=== PATIENT | male | born 1950 | race Caucasian/White ===

== ENCOUNTER 2017-01-06 14:22 | Observation (INO) | payer OTHER, MEDICARE ==
[2017-01-06] MEDS ORDERED: NITROGLYCERIN SL 0.4 MG TABLET SL STA ×3 (15:20→18:42)
[2017-01-06] MEDS ORDERED: NITROGLYCERIN SL 0.4 MG TABLET SL ONE (15:34)
[2017-01-06] MEDS ORDERED: SODIUM CHLORIDE 0.9% 1,000 ML IV ONE (16:16)
[2017-01-06] MEDS ORDERED: SODIUM CHLORIDE FLUSH 0.9% 10 ML SYRINGE IVP PRN (19:21)
[2017-01-06] MEDS ORDERED: NITROGLYCERIN SL 0.4 MG TABLET SL PRN (19:24)
[2017-01-06] MEDS ORDERED: SODIUM CHLORIDE 0.9% 1,000 ML IV SCH (20:00)
[2017-01-06] MEDS: SODIUM CHLORIDE FLUSH 0.9% 10 ML SYRINGE IVP SCH (20:37)
[2017-01-06] MEDS ORDERED: MORPHINE 2 MG/ML SYRINGE IVP PRN (20:54)
[2017-01-06] MEDS ORDERED: ATORVASTATIN 40 MG TABLET PO SCH (21:00)
[2017-01-06] MEDS ORDERED: LISINOPRIL 20 MG TABLET PO SCH (21:00)
[2017-01-06] MEDS: INSULIN GLARGINE 300 UNIT/3 ML PEN SUBQ SCH (21:04)
[2017-01-06] MEDS: INSULIN ASPART 300 UNIT/3 ML PEN SUBQ SCH (21:05)
[2017-01-06] MEDS: CARVEDILOL 12.5 MG TABLET PO SCH (21:24)
[2017-01-06] MEDS ORDERED: ZOLPIDEM 5 MG TABLET PO PRN (23:04)
[2017-01-06] MEDS: MORPHINE 2 MG/ML SYRINGE IVP PRN (23:36)
[2017-01-07] MEDS: SODIUM CHLORIDE FLUSH 0.9% 10 ML SYRINGE IVP SCH (06:09)
[2017-01-07] MEDS: MORPHINE 2 MG/ML SYRINGE IVP PRN (06:45)
[2017-01-07] MEDS ORDERED: PANTOPRAZOLE 40 MG TABLET PO SCH (07:00)
[2017-01-07] MEDS ORDERED: INSULIN ASPART 300 UNIT/3 ML PEN SUBQ SCH (08:00)
[2017-01-07] MEDS: INSULIN ASPART 300 UNIT/3 ML PEN SUBQ SCH (08:12)
[2017-01-07] MEDS: INSULIN GLARGINE 300 UNIT/3 ML PEN SUBQ SCH (08:26)
[2017-01-07] MEDS: CARVEDILOL 12.5 MG TABLET PO SCH (08:31)
[2017-01-07] MEDS ORDERED: predniSONE 10 MG TABLET PO SCH (09:00)
[2017-01-07] MEDS ORDERED: ASPIRIN EC 81 MG TABLET PO SCH (09:00)
[2017-01-07] MEDS ORDERED: amLODIPine 5 MG TABLET PO SCH (09:00)
[2017-01-07] MEDS ORDERED: CETIRIZINE 10 MG TABLET PO SCH (09:00)
[2017-01-07] MEDS ORDERED: FLUoxetine 10 MG CAPSULE PO SCH (09:00)
[2017-01-07] MEDS ORDERED: NITROGLYCERIN 0.1 MG/HR PATCH TOP SCH (09:00)
[2017-01-07] MEDS ORDERED: POLYETHYLENE GLYCOL 3350 17 GM PACKET PO SCH (09:00)
== END 2017-01-07 11:30 | disposition home or self-care (01) ==
DX: R07.89 Other chest pain (principal); E86.0 Dehydration; E11.65 Type 2 diabetes mellitus with hyperglycemia; K21.9 Gastro-esophageal reflux disease without esophagitis; I25.118 Atherosclerotic heart disease of native coronary artery with other forms of angina pectoris; D59.1 Other autoimmune hemolytic anemias; T38.0X5A Adverse effect of glucocorticoids and synthetic analogues, initial encounter; T38.3X6A Underdosing of insulin and oral hypoglycemic [antidiabetic] drugs, initial encounter; I10 Essential (primary) hypertension; E78.5 Hyperlipidemia, unspecified; E66.9 Obesity, unspecified; I25.2 Old myocardial infarction; Z91.138 Patient's unintentional underdosing of medication regimen for other reason; Z95.5 Presence of coronary angioplasty implant and graft; Z79.52 Long term (current) use of systemic steroids; Z79.82 Long term (current) use of aspirin; Z79.4 Long term (current) use of insulin; Z87.891 Personal history of nicotine dependence; Z68.42 Body mass index [BMI] 45.0-49.9, adult; Z87.19 Personal history of other diseases of the digestive system
CPT/HCPCS: 36415; 71010; 80048; 80053; 83036; 83690; 84484; 85025; 93005; 93010; 96361; 96374; 96376; 99284; A9270; G0378

== ENCOUNTER 2017-02-26 15:47 | Emergency (ER) | payer OTHER, MEDICARE | END 2017-02-26 18:10 | disposition home or self-care (01) | DX: R07.9 Chest pain, unspecified (principal); I25.119 Atherosclerotic heart disease of native coronary artery with unspecified angina pectoris; I10 Essential (primary) hypertension; E78.00 Pure hypercholesterolemia, unspecified; E11.9 Type 2 diabetes mellitus without complications; Z79.4 Long term (current) use of insulin; K21.9 Gastro-esophageal reflux disease without esophagitis; Z87.11 Personal history of peptic ulcer disease; Z86.2 Personal history of diseases of the blood and blood-forming organs and certain disorders involving the immune mechanism ==

== ENCOUNTER 2017-04-03 07:18 | Day surgery (SDC) | payer OTHER, MEDICARE ==
[2017-04-03] MEDS ORDERED: LACTATED RINGERS 1,000 ML IV ONE (07:22)
[2017-04-03] MEDS ORDERED: MIDAZOLAM 2 MG/2 ML VIAL IVP ONE (08:33)
[2017-04-03] MEDS ORDERED: fentaNYL 100 MCG/2 ML VIAL IVP ONE (08:33)
[2017-04-03] MEDS ORDERED: LIDO GARGLE 30 ML BOTTLE PO ONE (08:40)
[2017-04-03] MEDS ORDERED: BENZOCAINE/TETRACAINE/BUTAMBEN SPRAY 56 GM TOP ONE (08:40)
[2017-04-03 09:26] VITALS: BP 110/60
== END 2017-04-03 07:19 | disposition home or self-care (01) ==
LOC: SDS 07:18
PROVIDERS: ATTEND Surgery
PROC: 0DB68ZX Excision of Stomach, Via Natural or Artificial Opening Endoscopic, Diagnostic (ICD-10-PCS; principal; 2017-04-03 08:15)
DX: K27.4 Chronic or unspecified peptic ulcer, site unspecified, with hemorrhage (principal); K21.9 Gastro-esophageal reflux disease without esophagitis; K29.70 Gastritis, unspecified, without bleeding; Z87.891 Personal history of nicotine dependence; Z98.890 Other specified postprocedural states
CPT/HCPCS: 43239; 87081; A9270; J7120

== ENCOUNTER 2017-04-05 08:47 | Outpatient (CLI) | payer OTHER, MEDICARE ==
[2017-04-05 13:17] LABS: ALBUMIN/GLOBULIN RATIO 1.5 (1.0-2.2); BILIRUBIN,TOTAL 0.6 mg/dL (0.2-1.0); CALCIUM 9.1 mg/dL (8.5-10.3); POTASSIUM 4.2 mmol/L (3.5-5.0); TOTAL PROTEIN 6.6 g/dL (6.7-8.2)
[2017-04-05 13:28] LABS: HEMOGLOBIN A1C 0.78 g/dL
== END 2017-04-05 08:48 | disposition home or self-care (01) ==
LOC: LAB.WCP 08:47
PROVIDERS: ATTEND Family Medicine
DX: I10 Essential (primary) hypertension (principal); E11.9 Type 2 diabetes mellitus without complications; F41.9 Anxiety disorder, unspecified
CPT/HCPCS: 36415; 80053; 83036

== ENCOUNTER 2017-07-01 07:53 | Outpatient (CLI) | payer OTHER, MEDICARE ==
[2017-07-01 14:23] LABS: HEMOGLOBIN A1C 0.54 g/dL
== END 2017-07-01 07:54 | disposition home or self-care (01) ==
LOC: LAB.WCP 07:53
PROVIDERS: ATTEND Family Medicine
DX: E11.9 Type 2 diabetes mellitus without complications (principal)
CPT/HCPCS: 36415; 82043; 83036

== ENCOUNTER 2017-11-04 07:48 | Outpatient (CLI) | payer OTHER, MEDICARE ==
[2017-11-04 12:43] LABS: CALCIUM 8.8 mg/dL (8.5-10.3)
[2017-11-04 13:06] LABS: HB2 TOTAL 15.7 g/dL; HEMOGLOBIN A1C 0.59 g/dL; HEMOGLOBIN A1C % 5.6 % (4.6-6.2)
== END 2017-11-04 07:49 | disposition home or self-care (01) ==
LOC: LAB.WCP 07:48
PROVIDERS: ATTEND Family Medicine
DX: E11.9 Type 2 diabetes mellitus without complications (principal); M48.061 Spinal stenosis, lumbar region without neurogenic claudication; K27.9 Peptic ulcer, site unspecified, unspecified as acute or chronic, without hemorrhage or perforation; I25.10 Atherosclerotic heart disease of native coronary artery without angina pectoris
CPT/HCPCS: 36415; 80048; 83036

== ENCOUNTER 2017-12-31 12:39 | Emergency (ER) | payer OTHER, MEDICARE ==
[2017-12-31 13:23] LABS: BASOPHILS # (AUTO) 0.1 10^3/uL (0.0-0.1); BASOPHILS % (AUTO) 0.8 %; EOSINOPHILS # (AUTO) 0.4 10^3/uL (0.0-0.7); EOSINOPHILS % (AUTO) 5.4 %; HGB - HEMOGLOBIN 14.6 g/dL (14.0-18.0); LYMPHOCYTES # (AUTO) 0.8 10^3/uL (1.5-3.5); LYMPHOCYTES % (AUTO) 11.1 %; MEAN CORPUSCULAR HEMOGLOBIN 34.3 pg (27.0-31.0); MEAN CORPUSCULAR HGB CONC 35.1 g/dL (32.0-36.0); MEAN CORPUSCULAR VOLUME 97.8 fL (80.0-94.0); MONOCYTES # (AUTO) 0.9 10^3/uL (0.0-1.0); MONOCYTES % (AUTO) 12.4 %; NEUTROPHILS # (AUTO) 5.3 10^3/uL (1.5-6.6); NEUTROPHILS % (AUTO) 70.3 %; PLT - PLATELET COUNT 141 10^3/uL (130-450); RED BLOOD COUNT 4.25 10^6/uL (4.70-6.10); RED CELL DISTRIBUTION WIDTH 12.2 % (12.0-15.0); WHITE BLOOD COUNT 7.5 x10^3/uL (4.8-10.8)
--- NOTE | 2017-12-31 13:23 | XRAY Report ---
EXAM: CHEST RADIOGRAPHY EXAM DATE: 12/31/2017 01:05 PM. CLINICAL HISTORY: Chest pain. COMPARISON: None. TECHNIQUE: 2 views. FINDINGS: Lungs/Pleura: No focal opacities evident. No pleural effusion. No pneumothorax. Normal volumes. Mediastinum: Heart and mediastinal contours are unremarkable. Other: Mild degenerative change in the spine. Surgical clips right upper quadrant. Surgical anchors r ight humeral head. IMPRESSION: No acute findings 2-view chest radiography. [facility] Referring Provider Line: [phone] SITE ID: [id number]
[2017-12-31 13:33] LABS: ALBUMIN 4.5 g/dL (3.2-5.5); ALBUMIN/GLOBULIN RATIO 1.9 (1.0-2.2); BILIRUBIN,TOTAL 0.6 mg/dL (0.2-1.0); CALCIUM 8.9 mg/dL (8.5-10.3); TOTAL PROTEIN 6.9 g/dL (6.7-8.2)
[2017-12-31] MEDS ORDERED: ASPIRIN CHEW 81 MG TABLET PO STA (13:58)
[2017-12-31] MEDS ORDERED: NITROGLYCERIN SL 0.4 MG TABLET SL STA ×2 (13:58→15:00)
--- NOTE | 2017-12-31 14:01 | ED Physician Documentation ---
PD HPI CHEST PAIN - Stated complaint Stated Complaint: CP - Chief complaint Chief Complaint: General - History obtained from History obtained from: Patient, Family (spouse) - History of Present Illness Timing - onset: How many days ago (3) Timing - onset during: Rest Timing - duration: Days (3) Timing - details: Still present, Constant Pain level now: 5 Quality: Sharp Location: Left shoulder/arm Improved by: Other medication (Improved with Vicodin.) Worsened by: Movement Associated symptoms: No: Shortness of air, Diaphoresis, Nausea, Vomiting Similar symptoms before: Diagnosis (History of similar symptoms with angina.) - Additional information Additional information: The patient is a 67-year-old male with history of coronary artery disease, status post UT in 2013, and status post coronary stents, who presents with pain in the left scapular region, radiating to the anterior chest. His symptoms started 3 days ago after relatively light physical activity, and the pain has been constant since that time. He describes it as feeling "like a knife." It is worse with movement, and improves with Vicodin. He denies any associated shortness of breath, diaphoresis, nausea or vomiting. He denies fever or cough. He reports history of similar symptoms about 2 or 3 months ago, but it resolved within one day that time. He also reports history of similar symptoms with angina. He did not take nitroglycerin because his bottle of nitroglycerin is out dated. In addition to coronary artery disease, he has a history of autoimmune hemolytic anemia. Surgical history is significant for Matt fundoplication. Review of Systems Constitutional: denies: Fever Ears: denies: Tinnitus/ringing Nose: denies: Congestion Throat: denies: Sore throat Cardiac: reports: Chest pain / pressure. denies: Palpitations Respiratory: denies: Dyspnea, Cough GI: denies: Abdominal Pain, Nausea, Vomiting : denies: Dysuria Skin: denies: Rash Musculoskeletal: reports: Extremity pain (Left scapular region.). denies: Extremity swelling Neurologic: denies: Focal weakness, Numbness, Headache PD PAST MEDICAL HISTORY - Past Medical History Cardiovascular: Hypertension, High cholesterol, Coronary artery disease, Angina , [place], Arrhythmia Respiratory: None Endocrine/Autoimmune: Type 2 diabetes GI: GERD, GI bleed, Ulcers : None HEENT: None Psych: Depression Musculoskeletal: Chronic back pain Derm: None - Past Surgical History Past Surgical History: Yes General: Cholecystectomy Cardiovascular: Coronary stent, Cardiac catheterization, Angioplasty - Present Medications Home Medications: Ambulatory Orders Medication Instructions Recorded Confirmed Carvedilol 37.5 mg ORAL BID 06/01/13 11/04/17 Cyclobenzaprine [Flexeril] 10 mg PO DAILY PRN 02/09/15 11/04/17 Atorvastatin [Lipitor] 40 mg PO DAILY 11/24/15 11/04/17 Nitroglycerin [Nitrostat] 0.4 mg PO DAILY PRN 11/24/15 11/04/17 Isosorbide Mononitrate [Isosorbide 60 mg PO BID 01/26/16 11/04/17 Mononitrate ER] Calcium Carbonate 1,500 mg PO DAILY PRN 02/13/16 11/04/17 Pantoprazole [Protonix] 40 mg PO BIDAC 02/13/16 11/04/17 Aspirin [Adult Low Dose Aspirin EC] 81 mg PO DAILY 02/15/16 11/04/17 Insulin Glargine,Hum.rec.anlog 35 units SQ BID 03/05/16 11/04/17 [Lantus] Ferrous Sulfate [Feosol] 65 mg PO DAILY 06/11/16 11/04/17 Insulin Lispro [Humalog] 10 unit SUBQ TID 06/11/16 11/04/17 Cetirizine [ZyrTEC] 10 mg PO DAILY 06/17/16 11/04/17 FLUoxetine [PROzac] 40 mg PO DAILY 06/17/16 11/04/17 Lisinopril [Zestril] 40 mg PO BID 08/13/16 11/04/17 amLODIPine [Norvasc] 10 mg PO DAILY 11/19/16 11/04/17 Colestipol HCl [Colestipol HCl] 1 gm PO BID 08/05/17 11/04/17 Nitroglycerin [Nitrostat] 0.4 mg SL Q5MIN PRN #1 bottle 12/31/17 - Allergies Allergies/Adverse Reactions: Allergies Allergy/AdvReac Type Severity Reaction Status Date / Time azithromycin Allergy Unknown Verified 12/31/17 14:08 - Living Situation Living Situation: reports: With spouse/s.o. - Social History Does the pt smoke?: No Smoking Status: Former smoker Does the pt drink ETOH?: No Does the pt have substance abuse?: No - Immunizations Immunizations are current?: Yes - POLST Patient has POLST: No PD ED PE NORMAL - Vitals Vital signs reviewed: Yes (Normal) - General General: Alert and oriented X 3, Well developed/nourished - HEENT HEENT: Atraumatic, Moist mucous membranes, Pharynx benign - Neck Neck: Supple, no meningeal sign, No adenopathy, No JVD - Cardiac Cardiac: RRR, No murmur - Respiratory Respiratory: No respiratory distress, Clear bilaterally - Abdomen Abdomen: Soft, Non tender - Back Back: No CVA TTP - Derm Derm: No rash - Extremities Extremities: No tenderness to palpate, No edema, No calf tenderness / cord - Neuro Neuro: Alert and oriented X 3, No motor deficit, No sensory deficit Results - Vitals Vitals: Oxygen O2 Source [] Room air O2 Source Room air - EKG (time done) 12:46 Rate: Rate (enter#) (78) Rhythm: NSR [place]: Normal Intervals: Normal [place] Ischemia: Normal ST segments Other comments: Other comments (Early R-wave transition.) Compare to prior EKG: Unchanged from prior EKG Computer interpretation: Agree with computer - Labs Labs: Laboratory Tests 12/31/17 12/31/17 12/31/17 13:11 13:11 13:11 WBC 7.5 RBC 4.25 L Hgb 14.6 Hct 41.6 L MCV 97.8 H MCH 34.3 H MCHC 35.1 RDW 12.2 Plt Count 141 MPV 8.0 Neut # 5.3 Lymph # 0.8 L [place] # 0.9 Eos # 0.4 Baso # 0.1 Absolute Nucleated RBC 0.00 Nucleated RBC % 0.0 Sodium 135 Potassium 4.8 Chloride 106 Carbon Dioxide 21 Anion Gap 8.0 BUN 14 Creatinine 1.0 Estimated GFR (MDRD) 75 L Glucose 144 H Calcium 8.9 Total Bilirubin 0.6 AST 21 ALT 21 Alkaline Phosphatase 98 Troponin I < 0.04 Total Protein 6.9 Albumin 4.5 Globulin 2.4 Albumin/Globulin Ratio 1.9 Lipase 23 - Rads (name of study) CXR Radiology: Prelim report reviewed, EMP read contemporaneously, See rad report ( No acute findings, normal 2 view chest radiography.) PD MEDICAL DECISION MAKING - ED course Complexity details: reviewed old records, reviewed results, re-evaluated patient , considered differential, d/w patient, d/w family ED course: The patient's presentation is significant for chest pain that may well be caused by cardiac angina. There is no change in his electrocardiogram compared to previous EKG, and his troponin level is normal. Given that his symptoms have been ongoing for 3 days I would expect elevated troponin if there had been cardiac injury. He had not taken nitroglycerin at home because his bottle of nitroglycerin was outdated. Consideration was given to the possibility of musculoskeletal etiology for his pain, but I was not convinced that his left shoulder movement or palpation reproduced his symptoms. In the emergency department sublingual nitroglycerin was administered 2, with resolution of his discomfort. A GI cocktail was also administered, but his pain had resolved prior to the administration of the oral medication. Chest x- ray reveals no acute radiographic abnormality, and I doubt pulmonary embolus. CBC and chemistry panel are normal except for mildly elevated blood sugar of 144. I do not think the patient has unstable angina, and do not think hospitalization is necessarily indicated. I discussed this with the patient and his and the patient is quite adamant he does not want to be hospitalized. He is being discharged with a prescription for Nitrostat. I discussed with him and his the importance of outpatient follow-up, as well as potentially worrisome signs or symptoms that should prompt reevaluation in the emergency department. Departure - Departure Disposition: 01 Home, Self Care Clinical Impression: Chest pain Qualifiers: Chest pain type: unspecified Qualified Code(s): R07.9 - Chest pain, unspecified CAD (coronary artery disease) Qualifiers: Associated angina: with stable angina Condition: Stable Instructions: ED Chest Pain Angina Stable Follow-Up: Marc Juarez MD [Provider Admit Priv/Credential] - Prescriptions: Nitroglycerin [Nitrostat] 0.4 mg SL Q5MIN PRN #1 bottle PRN Reason: Chest Pain Comments: Continue your previously prescribed cardiac medication. Use sublingual nitroglycerin as prescribed if needed for recurrent anginal chest pain. 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 Call to schedule follow-up appointment. Return to the emergency department if you develop increasing chest pain or shortness of breath, or otherwise worsening symptoms. Discharge Date/Time: 12/31/17 16:33
[2017-12-31] MEDS ORDERED: MAG HYDROX/AL HYDROX/SIMETH 30 ML UDC PO STA (15:10)
[2017-12-31] MEDS ORDERED: PHENobarb/HYOSCY/ATROPINE/SCOP 5 ML UDC PO STA (15:10)
[2017-12-31] MEDS ORDERED: LIDOCAINE VISCOUS 2% 15 ML UDC MM STA (15:10)
[2017-12-31 16:25] VITALS: BP 128/76
== END 2017-12-31 16:33 | disposition home or self-care (01) ==
LOC: ED 12:39
DX: R07.9 Chest pain, unspecified (principal); I25.118 Atherosclerotic heart disease of native coronary artery with other forms of angina pectoris; I25.2 Old myocardial infarction; I10 Essential (primary) hypertension; E78.00 Pure hypercholesterolemia, unspecified; E11.9 Type 2 diabetes mellitus without complications; Z79.4 Long term (current) use of insulin; Z87.891 Personal history of nicotine dependence; Z95.5 Presence of coronary angioplasty implant and graft
CPT/HCPCS: 36415; 71046; 80053; 83690; 84484; 85025; 93005; 99284; A9270

== ENCOUNTER 2018-02-03 11:50 | Outpatient (CLI) | payer OTHER, MEDICARE ==
[2018-02-03] MEDS ORDERED: IOPAMIDOL-300 100 ML VIAL ONE (12:09)
[2018-02-03] MEDS ORDERED: IOPAMIDOL-300 50 ML VIAL ONE (12:09)
[2018-02-03] MEDS ORDERED: IOPAMIDOL-300 50 ML VIAL PO ONE (13:10)
[2018-02-03] MEDS ORDERED: IOPAMIDOL-300 100 ML VIAL IVP ONE (13:10)
--- NOTE | 2018-02-03 13:29 | CT Report ---
CT ABDOMEN AND PELVIS WITH CONTRAST: 02/03/2018 CLINICAL INDICATION: Right-sided abdominal pain. TECHNIQUE: Axial CT images of the abdomen and pelvis were obtained with 100 mL Isovue 300 intravenously as well as oral contrast. COMPARISON: 10/09/2016. FINDINGS: Limited evaluation of the lung bases is unremarkable. ABDOMEN: The liver, pancreas and adrenal glands are unremarkable. Incidental small cysts are noted in the spleen and kidneys. No hydronephrosis or nephrolithiasis is seen. No bowel dilatation, free gas or free fluid is present. The patient is status post cholecystectomy. No abdominal adenopathy is present. PELVIS: The appendix is seen in the right lower quadrant, and is normal in caliber. Scattered sigmoid diverticula are present, without CT evidence of diverticulitis. The previously noted wall thickening of the ascending colon and cecum have resolved. No pelvic adenopathy or free fluid is present. Osseous structures demonstrate degenerative changes. IMPRESSION: RESOLUTION OF PREVIOUSLY SEEN COLITIS. NO EVIDENT ETIOLOGY FOR PATIENT'S RIGHT-SIDED PAIN. POSTOPERATIVE CHANGES OF CHOLECYSTECTOMY. NORMAL APPENDIX. CT DOSE REDUCTION STATEMENT In accordance with CT protocol optimization, one or more of the following dose reduction techniques were utilized for this exam: automated exposure control, adjustment of mA and/or KV based on patient size, or use of iterative reconstructive technique. TD: 02/03/2018 13:28
== END 2018-02-03 11:51 | disposition home or self-care (01) ==
LOC: DI 11:50
PROVIDERS: ATTEND Family Medicine
DX: R10.9 Unspecified abdominal pain (principal); Z90.49 Acquired absence of other specified parts of digestive tract
CPT/HCPCS: 74177

== ENCOUNTER 2018-02-10 08:07 | Outpatient (CLI) | payer OTHER, MEDICARE ==
[2018-02-10 13:20] LABS: ALBUMIN 4.4 g/dL (3.2-5.5); BILIRUBIN,TOTAL 0.4 mg/dL (0.2-1.0); CALCIUM 8.6 mg/dL (8.5-10.3); TOTAL PROTEIN 6.6 g/dL (6.7-8.2)
[2018-02-10 13:21] LABS: HB2 TOTAL 16.8 g/dL; HEMOGLOBIN A1C 0.64 g/dL; HEMOGLOBIN A1C % 5.6 % (4.6-6.2)
== END 2018-02-10 08:08 | disposition home or self-care (01) ==
LOC: LAB.WCP 08:07
PROVIDERS: ATTEND Family Medicine
DX: K52.9 Noninfective gastroenteritis and colitis, unspecified (principal); D59.9 Acquired hemolytic anemia, unspecified; I25.10 Atherosclerotic heart disease of native coronary artery without angina pectoris; E11.9 Type 2 diabetes mellitus without complications; Z79.891 Long term (current) use of opiate analgesic
CPT/HCPCS: 36415; 80053; 83036

== ENCOUNTER 2018-02-19 14:34 | Outpatient (CLI) | payer OTHER, MEDICARE ==
[2018-02-19 19:34] LABS: BASOPHILS # (AUTO) 0.1 10^3/uL (0.0-0.1); EOSINOPHILS # (AUTO) 0.5 10^3/uL (0.0-0.7); EOSINOPHILS % (AUTO) 6.6 %; HGB - HEMOGLOBIN 14.2 g/dL (14.0-18.0); LYMPHOCYTES # (AUTO) 0.9 10^3/uL (1.5-3.5); LYMPHOCYTES % (AUTO) 12.1 %; MEAN CORPUSCULAR HEMOGLOBIN 33.2 pg (27.0-31.0); MEAN CORPUSCULAR HGB CONC 33.1 g/dL (32.0-36.0); MEAN CORPUSCULAR VOLUME 100.3 fL (80.0-94.0); MEAN PLATELET VOLUME 8.8 fL (7.4-11.4); MONOCYTES % (AUTO) 13.4 %; NEUTROPHILS # (AUTO) 4.8 10^3/uL (1.5-6.6); NEUTROPHILS % (AUTO) 66.9 %; PLT - PLATELET COUNT 164 10^3/uL (130-450); RED BLOOD COUNT 4.29 10^6/uL (4.70-6.10); RED CELL DISTRIBUTION WIDTH 12.7 % (12.0-15.0); WHITE BLOOD COUNT 7.2 x10^3/uL (4.8-10.8)
[2018-02-19 19:58] LABS: ALBUMIN 4.4 g/dL (3.2-5.5); BILIRUBIN,TOTAL 0.3 mg/dL (0.2-1.0); CALCIUM 8.8 mg/dL (8.5-10.3); TOTAL PROTEIN 6.6 g/dL (6.7-8.2)
== END 2018-02-19 14:35 | disposition home or self-care (01) ==
LOC: LAB.WCP 14:34
PROVIDERS: ATTEND Family Medicine
DX: K52.9 Noninfective gastroenteritis and colitis, unspecified (principal)
CPT/HCPCS: 36415; 80053; 85025

== ENCOUNTER 2018-08-02 17:10 | Emergency (ER) | payer MEDICARE, OTHER ==
[2018-08-02 17:31] LABS: BASOPHILS # (AUTO) 0.1 10^3/uL (0.0-0.1); BASOPHILS % (AUTO) 0.9 %; EOSINOPHILS # (AUTO) 0.5 10^3/uL (0.0-0.7); EOSINOPHILS % (AUTO) 6.3 %; HGB - HEMOGLOBIN 15.6 g/dL (14.0-18.0); LYMPHOCYTES # (AUTO) 0.8 10^3/uL (1.5-3.5); MEAN CORPUSCULAR HEMOGLOBIN 34.6 pg (27.0-31.0); MEAN CORPUSCULAR HGB CONC 34.8 g/dL (32.0-36.0); MEAN CORPUSCULAR VOLUME 99.6 fL (80.0-94.0); MEAN PLATELET VOLUME 7.8 fL (7.4-11.4); MONOCYTES # (AUTO) 0.9 10^3/uL (0.0-1.0); MONOCYTES % (AUTO) 12.4 %; NEUTROPHILS # (AUTO) 5.1 10^3/uL (1.5-6.6); NEUTROPHILS % (AUTO) 69.4 %; PLT - PLATELET COUNT 164 10^3/uL (130-450); RED CELL DISTRIBUTION WIDTH 12.2 % (12.0-15.0); WHITE BLOOD COUNT 7.4 x10^3/uL (4.8-10.8)
--- NOTE | 2018-08-02 17:37 | ED Physician Documentation ---
PD HPI CHEST PAIN - Stated complaint Stated Complaint: CP - Chief complaint Chief Complaint: Cardiac - History obtained from History obtained from: Patient - History of Present Illness Timing - onset: Yesterday Timing - onset during: Rest Timing - duration: Minutes Timing - details: Still present (The chest pain is been more consistent the last couple of hours.), Intermittant (has had left chest pain intermittently since yesterday, with consistent and worse pain this afternoon. Not exertional. Not pleuritic.) Quality: Tightness, Aching, Pain Location: Left chest Radiation: Jaw, Neck, Back Associated symptoms: Shortness of air, Nausea. No: Diaphoresis, Feeling faint / dizzy Similar symptoms before: Diagnosis (he does have CAD with prior stents, last one in 2013. Saw Pest Control Worker Helper a week ago and was scheduled for nuclear stress and ECHO for early Aug. Had had some occasional CPs at the time of seeing Pest Control Worker Helper. CP worse now. Not exertional.) Recently seen: Clinic Review of Systems Constitutional: denies: Fever, Chills, Myalgias Nose: denies: Rhinorrhea / runny nose, Congestion Throat: denies: Sore throat Cardiac: reports: Chest pain / pressure. denies: Palpitations, Pedal edema, Calf pain Respiratory: reports: Dyspnea. denies: Cough, Wheezing GI: reports: Abdominal Pain (mid to lower abd for several weeks). denies: Nausea, Vomiting, Diarrhea Skin: denies: Rash, Lesions Musculoskeletal: denies: Extremity swelling PD PAST MEDICAL HISTORY - Past Medical History Cardiovascular: Hypertension, High cholesterol, Coronary artery disease, Angina, [place], Arrhythmia Respiratory: None, Pneumonia Endocrine/Autoimmune: Type 2 diabetes GI: GERD, GI bleed, Ulcers : None HEENT: None Psych: Depression Musculoskeletal: Chronic back pain Derm: None Other Past Medical History: IBS - Past Surgical History Past Surgical History: Yes General: Cholecystectomy Cardiovascular: Coronary stent, Cardiac catheterization, Angioplasty - Present Medications Home Medications: Ambulatory Orders Medication Instructions Recorded Confirmed Carvedilol 37.5 mg ORAL BID 06/01/13 07/07/18 Atorvastatin [Lipitor] 40 mg PO DAILY 11/24/15 07/07/18 Nitroglycerin [Nitrostat] 0.4 mg PO DAILY PRN 11/24/15 07/07/18 Isosorbide Mononitrate [Isosorbide 60 mg PO BID 01/26/16 07/07/18 Mononitrate ER] Pantoprazole [Protonix] 40 mg PO BIDAC 02/13/16 07/07/18 Aspirin [Adult Low Dose Aspirin EC] 81 mg PO DAILY 02/15/16 07/07/18 Insulin Glargine,Hum.rec.anlog 35 units SQ BID 03/05/16 07/07/18 [Lantus] Ferrous Sulfate [Feosol] 65 mg PO DAILY 06/11/16 07/07/18 Insulin Lispro [Humalog] 10 unit SUBQ TID 06/11/16 07/07/18 Cetirizine [ZyrTEC] 10 mg PO DAILY 06/17/16 07/07/18 FLUoxetine [PROzac] 40 mg PO DAILY 06/17/16 07/07/18 Lisinopril [Zestril] 40 mg PO BID 08/13/16 07/07/18 amLODIPine [Norvasc] 10 mg PO DAILY 11/19/16 07/07/18 Colestipol HCl 1 gm PO BID 08/05/17 07/07/18 Nortriptyline [Pamelor] 2 tab ORAL DAILY 07/07/18 07/07/18 Hydrocodone/Acetaminophen 08/02/18 [Hydrocodone-Acetamin 5-325 mg] - Allergies Allergies/Adverse Reactions: Allergies Allergy/AdvReac Type Severity Reaction Status Date / Time azithromycin AdvReac Unknown Verified 08/02/18 17:18 - Social History Does the pt smoke?: No Smoking Status: Never smoker Does the pt drink ETOH?: No Does the pt have substance abuse?: No - Immunizations Immunizations are current?: Yes - POLST Patient has POLST: No PD ED PE NORMAL - Vitals Vital signs reviewed: Yes - General General: Alert and oriented X 3, Well developed/nourished - HEENT HEENT: Moist mucous membranes, Pharynx benign - Neck Neck: Supple, no meningeal sign, No adenopathy - Cardiac Cardiac: RRR, No murmur - Respiratory Respiratory: Clear bilaterally, Other (no chestwall tenderness) - Abdomen Abdomen: Soft, Non tender - Male Male : Deferred - Rectal Rectal: Deferred - Back Back: No CVA TTP - Derm Derm: Normal color, Warm and dry - Extremities Extremities: No deformity, No tenderness to palpate, Normal ROM s pain, No magalis a, No calf tenderness / cord - Neuro Neuro: Alert and oriented X 3, No motor deficit, Normal speech - Psych Psych: Normal mood, Normal affect Results - Vitals Vitals: Vital Signs - 24 hr 08/02/18 08/02/18 08/02/18 17:15 17:58 18:42 Temperature 36 C L Heart Rate 73 73 75 Respiratory 22 21 20 Rate Blood Pressure 169/84 H 143/75 H 145/73 H O2 Saturation 100 99 99 08/02/18 19:33 Temperature 36.6 C Heart Rate 80 Respiratory 18 Rate Blood Pressure 137/76 H O2 Saturation 100 Oxygen O2 Source [] Room air O2 Source Room air - EKG (time done) 17:14 Rate: Rate (enter#) (71) Rhythm: NSR [place]: Normal Intervals: Normal [place] QRS: Normal Ischemia: Normal ST segments. No: ST elevation c/w ischemia, ST depression - Labs Labs: Laboratory Tests 08/02/18 08/02/18 08/02/18 17:23 17:23 17:23 WBC 7.4 RBC 4.50 L Hgb 15.6 Hct 44.8 MCV 99.6 H MCH 34.6 H MCHC 34.8 RDW 12.2 Plt Count 164 MPV 7.8 Neut # (Auto) 5.1 Lymph # (Auto) 0.8 L [place] # (Auto) 0.9 Eos # (Auto) 0.5 Baso # (Auto) 0.1 Absolute Nucleated RBC 0.00 Nucleated RBC % 0.0 Sodium 133 L Potassium 4.2 Chloride 98 L Carbon Dioxide 25 Anion Gap 10.0 BUN 12 Creatinine 0.9 Estimated GFR (MDRD) 84 L Glucose 135 H Calcium 8.8 Magnesium Total Bilirubin 0.6 AST 21 ALT 23 Alkaline Phosphatase 149 H Troponin I < 0.04 B-Natriuretic Peptide Total Protein 7.5 Albumin 4.8 Globulin 2.7 Albumin/Globulin Ratio 1.8 Lipase 31 08/02/18 08/02/18 17:23 17:23 WBC RBC Hgb Hct MCV MCH MCHC RDW Plt Count MPV Neut # (Auto) Lymph # (Auto) [place] # (Auto) Eos # (Auto) Baso # (Auto) Absolute Nucleated RBC Nucleated RBC % Sodium Potassium Chloride Carbon Dioxide Anion Gap BUN Creatinine Estimated GFR (MDRD) Glucose Calcium Magnesium 2.4 Total Bilirubin AST ALT Alkaline Phosphatase Troponin I B-Natriuretic Peptide 24 Total Protein Albumin Globulin Albumin/Globulin Ratio Lipase - Rads (name of study) chest xray Radiology: Prelim report reviewed, EMP read contemporaneously (no acute process) PD MEDICAL DECISION MAKING - ED course Complexity details: re-evaluated patient (He had some improvement with nitroglycerin with the pain from an 8 to a 5 and then to 3. He still has some mild pain. It is not changed with position eating breathing or palpation. He does have a history of coronary disease and so the concern is for unstable angina. I talked with the on-call computer technology trainer Dr. Lex Renteria on-call for Dr. Jose fajardo. He accepts the patient in transfer for more urgent cardiac testing to evaluate for acute coronary syndrome. He did not want the patient on any heparin at this time.), considered differential, d/w patient Departure - Departure Disposition: 02 Transfer Acute Care Hosp Clinical Impression: Unstable angina Chest pain Qualifiers: Chest pain type: precordial pain Qualified Code(s): R07.2 - Precordial pain Condition: Stable Record reviewed to determine appropriate education?: Yes
[2018-08-02 17:45] LABS: ALBUMIN 4.8 g/dL (3.2-5.5); ALBUMIN/GLOBULIN RATIO 1.8 (1.0-2.2); BILIRUBIN,TOTAL 0.6 mg/dL (0.2-1.0); CALCIUM 8.8 mg/dL (8.5-10.3); CREATININE 0.9 mg/dL (0.6-1.2); TOTAL PROTEIN 7.5 g/dL (6.7-8.2)
[2018-08-02] MEDS ORDERED: NITROGLYCERIN SL 0.4 MG TABLET SL STA (17:52)
[2018-08-02] MEDS ORDERED: MORPHINE 10 MG/ML VIAL IVP STA ×2 (17:53→20:29)
--- NOTE | 2018-08-02 19:01 | XRAY Report ---
Reason: chest pain Procedure Date: 08/02/2018 Accession Number: [id number] / [id number] Procedure: XR - Chest 2 View X-Ray CPT Code: 85825 FULL RESULT: EXAM: CHEST RADIOGRAPHY EXAM DATE: 08/02/2018 06:40 PM. CLINICAL HISTORY: Chest pain. COMPARISON: 12/31/2017. TECHNIQUE: 2 views. FINDINGS: Lungs/Pleura: No focal opacities evident. No pleural effusion. No pneumothorax. Normal volumes. Mediastinum: Heart and mediastinal contours are unremarkable. Other: Right humeral head and right upper quadrant abdominal postoperative changes redemonstrated. IMPRESSION: No acute abnormality or significant interval change. [facility]
[2018-08-02] MEDS ORDERED: KETOROLAC 15 MG/ML VIAL IVP STA (19:10)
[2018-08-02] MEDS ORDERED: NITROGLYCERIN 2% PASTE TOP STA (19:10)
[2018-08-02 19:37] VITALS: BP 137/76
== END 2018-08-02 20:35 | disposition short-term general hospital (02) ==
LOC: ED 17:10
DX: I20.0 Unstable angina (principal); I11.9 Hypertensive heart disease without heart failure; I25.10 Atherosclerotic heart disease of native coronary artery without angina pectoris; E11.9 Type 2 diabetes mellitus without complications; Z79.4 Long term (current) use of insulin; Z79.82 Long term (current) use of aspirin
CPT/HCPCS: 36415; 71046; 80053; 83690; 83735; 83880; 84484; 85025; 93005; 96374; 96375; 99284; A9270; 99283

== ENCOUNTER 2018-08-02 20:31 | Outpatient (CLI) | payer MEDICARE, OTHER | END 2018-08-02 20:32 | disposition short-term general hospital (02) | LOC: EMS 20:31 | PROVIDERS: ATTEND Surgery | DX: R07.9 Chest pain, unspecified (principal) | CPT/HCPCS: A0170; A0425; A0426 ==

== ENCOUNTER 2018-08-06 07:25 | Outpatient (CLI) | payer MEDICARE, OTHER ==
[2018-08-06 14:13] LABS: ALBUMIN 4.1 g/dL (3.2-5.5); ALT ALANINE AMINOTRANSFERASE 20 IU/L (10-60); AST ASPARTATE AMINOTRANSFERASE 21 IU/L (10-42); BUN - BLOOD UREA NITROGEN 12 mg/dL (6-20); CALCIUM 8.3 mg/dL (8.5-10.3); CARBON DIOXIDE - CO2 25 mmol/L (21-32); CHLORIDE 103 mmol/L (101-111); CHOL/HDL RATIO 2.6 (<5.0); CHOLESTEROL 87 mg/dL; CK- CREATINE KINASE 124 IU/L (22-269); CREATININE 0.9 mg/dL (0.6-1.2); GFR - MDRD 84 (>89); GLUCOSE 109 mg/dL (70-100); HDL CHOLESTEROL 34 mg/dL; LDL CHOLESTEROL,CALCULATED 29 mg/dL; LDL CHOLESTEROL,DIRECT 39 mg/dL; LDL/HDL RATIO 0.9 (<3.6); SODIUM 135 mmol/L (135-145); VLDL CHOLESTEROL 24 mg/dL
== END 2018-08-06 07:26 | disposition home or self-care (01) ==
LOC: LAB.WCP 07:25
PROVIDERS: ATTEND Internal Medicine Cardiovascular Disease
DX: I48.0 Paroxysmal atrial fibrillation (principal); E78.5 Hyperlipidemia, unspecified
CPT/HCPCS: 36415; 80061; 80069; 82550; 83721; 84450; 84460

== ENCOUNTER 2018-08-15 13:30 | Outpatient (CLI) | payer MEDICARE, OTHER ==
--- NOTE | 2018-08-15 14:37 | XRAY Report ---
Reason: IRON DEFICIENCY ANEMIA Procedure Date: 08/15/2018 Accession Number: [id number] / [id number] Procedure: XR - Abdomen 1 View X-Ray CPT Code: 21626 FULL RESULT: EXAM: ABDOMEN RADIOGRAPHY EXAM DATE: 08/15/2018 01:47 PM. CLINICAL HISTORY: IRON DEFICIENCY ANEMIA. COMPARISON: 4 1618. TECHNIQUE: 1 view. FINDINGS: Bowel Gas Pattern: Within normal limits. No dilated loops. Other: Degenerative change in the lumbar spine IMPRESSION: Unremarkable 1-view abdomen x-ray for age. [facility]
== END 2018-08-15 13:31 | disposition home or self-care (01) ==
LOC: DI 13:30
PROVIDERS: ATTEND Physician Assistant
DX: D50.9 Iron deficiency anemia, unspecified (principal)
CPT/HCPCS: 74018

== ENCOUNTER 2018-09-29 08:00 | Outpatient (CLI) | payer MEDICARE, OTHER ==
[2018-09-29 13:03] LABS: BASOPHILS # (AUTO) 0.1 10^3/uL (0.0-0.1); BASOPHILS % (AUTO) 0.8 %; EOSINOPHILS # (AUTO) 0.2 10^3/uL (0.0-0.7); EOSINOPHILS % (AUTO) 2.1 %; HGB - HEMOGLOBIN 15.5 g/dL (14.0-18.0); LYMPHOCYTES % (AUTO) 12.9 %; MEAN CORPUSCULAR HEMOGLOBIN 33.2 pg (27.0-31.0); MEAN CORPUSCULAR HGB CONC 34.6 g/dL (32.0-36.0); MEAN PLATELET VOLUME 8.9 fL (7.4-11.4); MONOCYTES # (AUTO) 0.9 10^3/uL (0.0-1.0); MONOCYTES % (AUTO) 11.2 %; NEUTROPHILS # (AUTO) 5.7 10^3/uL (1.5-6.6); PLT - PLATELET COUNT 151 10^3/uL (130-450); RED BLOOD COUNT 4.67 10^6/uL (4.70-6.10); RED CELL DISTRIBUTION WIDTH 12.1 % (12.0-15.0); WHITE BLOOD COUNT 7.8 x10^3/uL (4.8-10.8)
[2018-09-29 13:04] LABS: ALBUMIN 4.1 g/dL (3.2-5.5); ALBUMIN/GLOBULIN RATIO 1.9 (1.0-2.2); BILIRUBIN,TOTAL 0.5 mg/dL (0.2-1.0); CALCIUM 8.2 mg/dL (8.5-10.3); CREATININE 0.8 mg/dL (0.6-1.2); TOTAL PROTEIN 6.3 g/dL (6.7-8.2)
[2018-09-29 13:59] LABS: HB2 TOTAL 16.2 g/dL; HEMOGLOBIN A1C 0.83 g/dL; HEMOGLOBIN A1C % 6.8 % (4.6-6.2)
== END 2018-09-29 23:59 | disposition home or self-care (01) ==
LOC: LAB.WCP 08:00
PROVIDERS: ATTEND Family Medicine
DX: D59.9 Acquired hemolytic anemia, unspecified (principal); E11.9 Type 2 diabetes mellitus without complications; I25.10 Atherosclerotic heart disease of native coronary artery without angina pectoris; I10 Essential (primary) hypertension
CPT/HCPCS: 36415; 80053; 83036; 85025

== ENCOUNTER 2018-12-22 08:42 | Emergency (ER) | payer MEDICARE, OTHER ==
--- NOTE | 2018-12-22 09:17 | ED Physician Documentation ---
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 Ankle twisted and he fell, struck back of head.) Timing - onset: Today Location of injury: Back Quality of pain: Pain, Aching Associated symptoms: AMS (he felt dazed for several minutes). No: LOC, Nausea / vomiting, Neck pain Symptoms improve with: Rest Symptoms worsen with: Palpation Contributing factors: No: Anticoagulated, Intoxicated Similar symptoms before: Has not had sx before Recently seen: Not recently seen Review of Systems Constitutional: denies: Fever Eyes: denies: Loss of vision, Photophobia Nose: denies: Rhinorrhea / runny nose, Congestion Throat: denies: Sore throat Respiratory: denies: Cough GI: denies: Abdominal Pain, Nausea, Vomiting, Diarrhea Skin: denies: Abrasion (s), Laceration (s) Musculoskeletal: reports: Neck pain Neurologic: denies: Generalized weakness, Focal weakness, Numbness, Difficulty speaking PD PAST MEDICAL HISTORY - Past Medical History Cardiovascular: Hypertension, High cholesterol, Coronary artery disease, Angina, [place], Arrhythmia Respiratory: None, Pneumonia Endocrine/Autoimmune: Type 2 diabetes GI: GERD, GI bleed, Ulcers : None HEENT: None Psych: Depression Musculoskeletal: Chronic back pain Derm: None - Past Surgical History Past Surgical History: Yes General: Cholecystectomy Cardiovascular: Coronary stent, Cardiac catheterization, Angioplasty - Present Medications Home Medications: Ambulatory Orders Medication Instructions Recorded Confirmed Atorvastatin [Lipitor] 40 mg PO DAILY 11/24/15 10/06/18 Nitroglycerin [Nitrostat] 0.4 mg PO DAILY PRN 11/24/15 10/06/18 Pantoprazole [Protonix] 40 mg PO BIDAC 02/13/16 10/06/18 Aspirin [Adult Low Dose Aspirin EC] 81 mg PO DAILY 02/15/16 10/06/18 Insulin Glargine,Hum.rec.anlog 35 units SQ BID 03/05/16 10/06/18 [Lantus] Ferrous Sulfate [Feosol] 65 mg PO DAILY 06/11/16 10/06/18 Insulin Lispro [Humalog] 10 unit SUBQ TID 06/11/16 10/06/18 Cetirizine [ZyrTEC] 10 mg PO DAILY 06/17/16 10/06/18 FLUoxetine [PROzac] 40 mg PO DAILY 06/17/16 10/06/18 amLODIPine [Norvasc] 10 mg PO DAILY 11/19/16 10/06/18 Nortriptyline [Pamelor] 2 tab ORAL DAILY 07/07/18 10/06/18 Hydrocodone/Acetaminophen 1 tab ORAL PRN PRN 08/02/18 10/06/18 [Hydrocodone-Acetamin 5-325 mg] Budesonide [Budesonide EC] 3 mg PO TID 10/06/18 10/06/18 Losartan [Cozaar] 50 mg PO DAILY 10/06/18 10/06/18 Metoprolol Tartrate 100 mg PO DAILY 10/06/18 10/06/18 Ranolazine [Ranexa] 500 mg PO DAILY 10/06/18 10/06/18 metFORMIN [Glucophage] 500 mg PO ONCE 10/06/18 10/06/18 Oxycodone HCl/Acetaminophen 1 each PO Q6H PRN #14 tablet 12/22/18 [Percocet 5-325 mg Tablet] - Allergies Allergies/Adverse Reactions: Allergies Allergy/AdvReac Type Severity Reaction Status Date / Time azithromycin AdvReac Unknown Verified 12/22/18 08:59 - Social History Does the pt smoke?: No Smoking Status: Never smoker Does the pt drink ETOH?: No Does the pt have substance abuse?: No - Immunizations Immunizations are current?: Yes - POLST Patient has POLST: No Results - Vitals Vitals: Vital Signs - 24 hr 12/22/18 12/22/18 12/22/18 08:53 08:59 11:16 Temperature 36.2 C L Heart Rate 79 76 76 Respiratory 14 12 14 Rate Blood Pressure 146/73 H 143/83 H 138/78 H O2 Saturation 98 96 98 Oxygen O2 Source [With Activity] Room air O2 Source Room air - Rads (name of study) head and cervical CT Radiology: Prelim report reviewed (no acute injuries) Departure - Departure Disposition: 01 Home, Self Care Clinical Impression: Fall from slip, trip, or stumble Qualifiers: Encounter type: initial encounter Qualified Code(s): W01.0XXA - Fall on same level from slipping, tripping and stumbling without subsequent striking against object, initial encounter Contusion of occipital region of scalp Qualifiers: Encounter type: initial encounter Qualified Code(s): S00.03XA - Contusion of scalp, initial encounter Neck muscle strain Qualifiers: Encounter type: initial encounter Qualified Code(s): S16.1XXA - Strain of muscle, fascia and tendon at neck level, initial encounter Condition: Stable Record reviewed to determine appropriate education?: Yes Instructions: ED Contusion Scalp Follow-Up: Marc Juarez MD [Primary Care Provider] - Prescriptions: Oxycodone HCl/Acetaminophen [Percocet 5-325 mg Tablet] 1 each PO Q6H PRN #14 tablet PRN Reason: pain Comments: Continue usual medications. To that add Percocet if needed every 6 hours for added pain from the current injury. Your scalp injury should decrease in pain as the swelling goes down over the next couple of days. Your CT of the head and neck appear okay. Return if worsening symptoms. Discharge Date/Time: 12/22/18 11:17
[2018-12-22] MEDS ORDERED: HYDROcod/ACETAM 5/325 MG TABLET PO STA (09:28)
--- NOTE | 2018-12-22 10:13 | CT Report ---
Reason: fall with head/neck injury Procedure Date: 12/22/2018 Accession Number: [id number] / [id number] Procedure: CT - CERVICAL SPINE WO CPT Code: FULL RESULT: EXAM: CT HEAD. CT SCAN OF THE CERVICAL SPINE. EXAM DATE: 12/22/2018 09:45 AM. CLINICAL HISTORY: Fall with head injury. COMPARISON: None. TECHNIQUE: Noncontrast axial sections through the head and cervical spine. Reformats: Sagittal and coronal of the head, coronal and sagittal of the cervical spine. In accordance with CT protocol optimization, one or more of the following dose reduction techniques were utilized for this exam: automated exposure control, adjustment of mA and/or KV based on patient size, or use of iterative reconstructive technique. FINDINGS CT HEAD: Parenchyma: Along the right temporoparietal parenchyma on coronal image 25 series 5 and axial image 14 series 2 is a 4 mm focus of mild hyperdensity, Hounsfield units approximately 35 with visual surrounding hypodensity along the superior sulcus. No other intraparenchymal hemorrhage. No evidence of mass, midline shift. Connelly-white differentiation is distinct. Extraaxial Spaces: Normal for age. Questionable minimal hyperintensity as described above. No other subdural or epidural collections identified. Ventricles: Normal in size and position. Sinuses and orbits: There is a left mastoid effusion. Right mastoid air cells are clear. Sinuses are unremarkable. Orbits appear atraumatic. Bones: No evidence of fracture or calvarial defect. Other: There is a superficial extracranial hematoma posteriorly on the right. FINDINGS CT CERVICAL SPINE: Alignment: Reversal of the normal cervical curvature. No scoliosis or spondylolisthesis. Bones: No fracture or bone lesion. Interspace Levels/Facets: Multilevel degenerative changes including loss of disk space height, endplate sclerosis and facet arthropathy. Spinal Canal: Normal. Musculature: Normal. No fatty atrophy. Other: The paravertebral and prevertebral soft tissues are unremarkable. The lung apices are clear. IMPRESSION: Head CT: Superficial extracranial hematoma. Subtle punctate hyperintense focus along the right superior temporal sulcus posteriorly near the temporoparietal juncture as described. It is unclear whether this represents an artifactual finding. If clinically indicated, [address] can help clarify. Left mastoid effusion, no temporal bone fracture identified. Cervical Spine CT: Negative. CRITICAL RESULT: The findings were discussed with Dr. Davis on 12/22/2018 at 10:12 AM. RADIA
[2018-12-22 11:17] VITALS: BP 138/78
== END 2018-12-22 11:17 | disposition home or self-care (01) ==
LOC: ED 08:42
DX: S16.1XXA Strain of muscle, fascia and tendon at neck level, initial encounter (principal); S00.03XA Contusion of scalp, initial encounter; W01.0XXA Fall on same level from slipping, tripping and stumbling without subsequent striking against object, initial encounter; Y93.01 Activity, walking, marching and hiking; I10 Essential (primary) hypertension; E11.9 Type 2 diabetes mellitus without complications; Z79.4 Long term (current) use of insulin; Z79.82 Long term (current) use of aspirin
CPT/HCPCS: 70450; 72125; 93005; 99283; A9270

== ENCOUNTER 2018-12-29 08:00 | Outpatient (CLI) | payer MEDICARE, OTHER ==
[2018-12-29 13:01] LABS: HB2 TOTAL 16.9 g/dL; HEMOGLOBIN A1C % 7.6 % (4.6-6.2)
[2018-12-29 13:25] LABS: BASOPHILS # (AUTO) 0.1 10^3/uL (0.0-0.1); BASOPHILS % (AUTO) 0.7 %; EOSINOPHILS # (AUTO) 0.4 10^3/uL (0.0-0.7); EOSINOPHILS % (AUTO) 3.6 %; HGB - HEMOGLOBIN 15.3 g/dL (14.0-18.0); LYMPHOCYTES # (AUTO) 1.1 10^3/uL (1.5-3.5); LYMPHOCYTES % (AUTO) 10.6 %; MEAN CORPUSCULAR HEMOGLOBIN 32.3 pg (27.0-31.0); MEAN CORPUSCULAR HGB CONC 34.3 g/dL (32.0-36.0); MEAN PLATELET VOLUME 8.8 fL (7.4-11.4); MONOCYTES # (AUTO) 1.3 10^3/uL (0.0-1.0); MONOCYTES % (AUTO) 12.1 %; NEUTROPHILS # (AUTO) 7.6 10^3/uL (1.5-6.6); PLT - PLATELET COUNT 198 10^3/uL (130-450); RED BLOOD COUNT 4.73 10^6/uL (4.70-6.10); WHITE BLOOD COUNT 10.4 x10^3/uL (4.8-10.8)
[2018-12-29 13:32] LABS: ALBUMIN/GLOBULIN RATIO 1.5 (1.0-2.2); BILIRUBIN,TOTAL 0.6 mg/dL (0.2-1.0); CALCIUM 8.6 mg/dL (8.5-10.3); CREATININE 0.9 mg/dL (0.6-1.2); TOTAL PROTEIN 6.6 g/dL (6.7-8.2)
== END 2018-12-29 23:59 | disposition home or self-care (01) ==
LOC: LAB.WCP 08:00
PROVIDERS: ATTEND Family Medicine
DX: E11.9 Type 2 diabetes mellitus without complications (principal); D59.1 Other autoimmune hemolytic anemias
CPT/HCPCS: 36415; 80053; 83036; 85025

== ENCOUNTER 2019-02-20 10:37 | Outpatient (CLI) | payer MEDICARE, OTHER ==
[2019-02-20 12:50] LABS: CALCIUM 8.4 mg/dL (8.5-10.3); CREATININE 0.8 mg/dL (0.6-1.2)
== END 2019-02-20 23:59 | disposition home or self-care (01) ==
LOC: LAB.WCP 10:37
PROVIDERS: ATTEND Physician Assistant
DX: R10.31 Right lower quadrant pain (principal)
CPT/HCPCS: 36415; 80048

== ENCOUNTER 2019-02-27 09:20 | Emergency (ER) | payer MEDICARE, OTHER ==
[2019-02-27 09:46] LABS: BASOPHILS # (AUTO) 0.1 10^3/uL (0.0-0.1); BASOPHILS % (AUTO) 1.8 %; EOSINOPHILS # (AUTO) 0.2 10^3/uL (0.0-0.7); EOSINOPHILS % (AUTO) 3.5 %; HGB - HEMOGLOBIN 14.8 g/dL (14.0-18.0); LYMPHOCYTES # (AUTO) 0.7 10^3/uL (1.5-3.5); MEAN CORPUSCULAR HEMOGLOBIN 31.1 pg (27.0-31.0); MEAN CORPUSCULAR HGB CONC 34.1 g/dL (32.0-36.0); MEAN CORPUSCULAR VOLUME 91.3 fL (80.0-94.0); MEAN PLATELET VOLUME 7.5 fL (7.4-11.4); MONOCYTES # (AUTO) 0.7 10^3/uL (0.0-1.0); MONOCYTES % (AUTO) 11.8 %; NEUTROPHILS # (AUTO) 4.3 10^3/uL (1.5-6.6); NEUTROPHILS % (AUTO) 71.9 %; PLT - PLATELET COUNT 143 10^3/uL (130-450); RED BLOOD COUNT 4.76 10^6/uL (4.70-6.10); RED CELL DISTRIBUTION WIDTH 12.8 % (12.0-15.0)
[2019-02-27] MEDS ORDERED: NITROGLYCERIN SL 0.4 MG TABLET SL STA (09:56)
[2019-02-27] MEDS ORDERED: ASPIRIN CHEW 81 MG TABLET PO STA (09:56)
--- NOTE | 2019-02-27 09:59 | ED Physician Documentation ---
PD HPI CHEST PAIN - Stated complaint Stated Complaint: CHEST PAIN - Chief complaint Chief Complaint: Cardiac - History obtained from History obtained from: Patient, Family (spouse) - History of Present Illness Timing - onset: How many hours ago (2.5) Timing - onset during: Sleep Timing - details: Still present Pain level max: 5 Pain level now: 3 Quality: Sharp Location: Left chest Associated symptoms: Shortness of air. No: Diaphoresis, Nausea, Vomiting Similar symptoms before: Diagnosis (CAD, S/P coronary stents.) - Additional information Additional information: The patient is a 68-year-old male with history of IDDM, GERD and CAD, status post coronary stents x6, who presents with left anterior chest pain that awoke him from sleep about 2 and half hours prior to arrival. He reports associated shortness of breath. He denies nausea, vomiting, or diaphoresis. He was awoken twice earlier in the night with left anterior chest discomfort that resolved spontaneously on those 2 episodes. He currently rates his discomfort at 3 out of 10 in severity. At its worst it was 5 out of 10 in severity. In addition to coronary artery disease his past medical history is significant for insulin dependent diabetes and for autoimmune hemolytic anemia. Additional surgical history is significant for Matt fundoplication. Review of Systems Constitutional: reports: Fatigue. denies: Fever, Sweats Ears: denies: Tinnitus/ringing Nose: denies: Congestion Throat: denies: Sore throat Cardiac: reports: Chest pain / pressure. denies: Palpitations Respiratory: reports: Dyspnea. denies: Cough GI: denies: Abdominal Pain, Nausea, Vomiting : denies: Dysuria Skin: denies: Rash Musculoskeletal: denies: Back pain, Extremity swelling Neurologic: denies: Focal weakness, Numbness, Headache PD PAST MEDICAL HISTORY - Past Medical History Cardiovascular: Hypertension, High cholesterol, Coronary artery disease, Angina, [place], Arrhythmia Respiratory: None, Pneumonia Endocrine/Autoimmune: Type 2 diabetes GI: GERD, GI bleed, Ulcers : None HEENT: None Psych: Depression Musculoskeletal: Chronic back pain Derm: None - Past Surgical History Past Surgical History: Yes General: Cholecystectomy Cardiovascular: Coronary stent, Cardiac catheterization, Angioplasty - Present Medications Home Medications: Ambulatory Orders Medication Instructions Recorded Confirmed Atorvastatin [Lipitor] 40 mg PO DAILY 11/24/15 02/27/19 Nitroglycerin [Nitrostat] 0.4 mg PO DAILY PRN 11/24/15 02/27/19 Pantoprazole [Protonix] 40 mg PO BIDAC 02/13/16 02/27/19 Aspirin [Adult Low Dose Aspirin EC] 81 mg PO DAILY 02/15/16 02/27/19 Insulin Glargine,Hum.rec.anlog 35 units SQ BID 03/05/16 02/27/19 [Lantus] Ferrous Sulfate [Feosol] 65 mg PO DAILY 06/11/16 02/27/19 Insulin Lispro [Humalog] 10 unit SUBQ TID 06/11/16 02/27/19 Cetirizine [ZyrTEC] 10 mg PO DAILY 06/17/16 02/27/19 FLUoxetine [PROzac] 40 mg PO DAILY 06/17/16 02/27/19 amLODIPine [Norvasc] 10 mg PO DAILY 11/19/16 02/27/19 Nortriptyline [Pamelor] 2 tab ORAL DAILY 07/07/18 02/27/19 Hydrocodone/Acetaminophen 1 tab ORAL PRN PRN 08/02/18 02/27/19 [Hydrocodone-Acetamin 5-325 mg] Metoprolol Tartrate 100 mg PO DAILY 10/06/18 02/27/19 Ranolazine [Ranexa] 500 mg PO DAILY 10/06/18 02/27/19 metFORMIN [Glucophage] 500 mg PO ONCE 10/06/18 02/27/19 Telmisartan 80 mg PO DAILY 02/27/19 02/27/19 - Allergies Allergies/Adverse Reactions: Allergies Allergy/AdvReac Type Severity Reaction Status Date / Time azithromycin AdvReac Unknown Verified 02/27/19 09:31 - Living Situation Living Situation: reports: With spouse/s.o. - Social History Does the pt smoke?: No Smoking Status: Never smoker Does the pt drink ETOH?: No Does the pt have substance abuse?: No - Immunizations Immunizations are current?: Yes - POLST Patient has POLST: No PD ED PE NORMAL - Vitals Vital signs reviewed: Yes (hypertensive) - General General: Alert and oriented X 3, Well developed/nourished - HEENT HEENT: Atraumatic, Pharynx benign - Neck Neck: No adenopathy, No JVD - Cardiac Cardiac: RRR, No murmur - Respiratory Respiratory: No respiratory distress, Clear bilaterally, Other (No chest wall tenderness to palpation.) - Abdomen Abdomen: Soft, Non tender, Other (Rotund abdomen.) - Back Back: No CVA TTP - Derm Derm: No rash - Extremities Extremities: No edema, No calf tenderness / cord - Neuro Neuro: Alert and oriented X 3, No motor deficit, Normal speech Results - Vitals Vitals: Oxygen O2 Source [] Room air O2 Source Room air - EKG (time done) 09:25 Rate: Rate (enter#) (86) Rhythm: NSR [place]: Normal Intervals: Normal VT Ischemia: ST elevation c/w ischemia (Minimal ST elevation, <1mm in inferior leads II, III, and aVF) Compare to prior EKG: Unchanged from prior EKG Computer interpretation: Agree with computer - Labs Labs: Laboratory Tests 02/27/19 02/27/19 02/27/19 09:43 09:43 09:43 WBC 6.0 RBC 4.76 Hgb 14.8 Hct 43.5 MCV 91.3 MCH 31.1 H MCHC 34.1 RDW 12.8 Plt Count 143 MPV 7.5 Neut # (Auto) 4.3 Lymph # (Auto) 0.7 L [place] # (Auto) 0.7 Eos # (Auto) 0.2 Baso # (Auto) 0.1 Absolute Nucleated RBC 0.00 Nucleated RBC % 0.0 Sodium 132 L Potassium 3.9 Chloride 99 L Carbon Dioxide 23 Anion Gap 10.0 BUN 9 Creatinine 0.9 Estimated GFR (MDRD) 84 L Glucose 322 H POC Whole Bld Glucose Calcium 8.5 Total Bilirubin 0.7 AST 23 ALT 27 Alkaline Phosphatase 113 Troponin I < 0.04 Total Protein 6.4 L Albumin 3.9 Globulin 2.5 Albumin/Globulin Ratio 1.6 Lipase 28 02/27/19 02/27/19 14:53 15:49 WBC RBC Hgb Hct MCV MCH MCHC RDW Plt Count MPV Neut # (Auto) Lymph # (Auto) [place] # (Auto) Eos # (Auto) Baso # (Auto) Absolute Nucleated RBC Nucleated RBC % Sodium Potassium Chloride Carbon Dioxide Anion Gap BUN Creatinine Estimated GFR (MDRD) Glucose POC Whole Bld Glucose 188 H Calcium Total Bilirubin AST ALT Alkaline Phosphatase Troponin I < 0.04 Total Protein Albumin Globulin Albumin/Globulin Ratio Lipase - Rads (name of study) 1-view CXR Radiology: Prelim report reviewed, EMP read contemporaneously, See rad report (Low lung volumes with mild asymmetric elevation of the right hemidiaphragm. Otherwise unremarkable chest with no acute interval change.) PD MEDICAL DECISION MAKING - ED course Complexity details: reviewed old records, reviewed results, re-evaluated chicho nt, considered differential, d/w patient, d/w family ED course: The patient's left anterior chest pain is concerning for angina. There is no evidence of acute myocardial infarction, with no changes on his EKG, and negative troponin both upon arrival and 5 hours later. His pain significantly diminished after administration of 4 baby aspirin and 3 sublingual nitroglycerin , and resolved after GI cocktail. He thereafter remained asymptomatic. Although angina is the more likely, esophageal etiology remains a consideration. The patient has sublingual nitroglycerin, and would normally have used it for the symptoms he was experiencing, but he was concerned about possible flare of his hemolytic anemia. CBC and chemistry panel are unremarkable except for elevated blood sugar of 322. Chest x-ray reveals no evidence of pulmonary abnormality. Further treatment in the emergency department included administration of 8 units regular insulin subcutaneously. Repeat fingerstick blood sugar improved to 188. I discussed with the patient and his the results of his workup, and they prefer outpatient follow-up rather than further in-hospital observation. I discussed with them the importance of follow-up, as well as potentially worrisome signs or symptoms that should prompt reevaluation in the emergency department. 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 Monitor your blood sugars, and use additional insulin on a sliding scale basis if indicated. Use your sublingual nitroglycerin if you develop recurrent anginal chest pain. Follow-up with your primary physician next week as planned. Return to the emergency department if you develop persistent chest pain, shortness of breath, or otherwise worsening symptoms. Discharge Date/Time: 02/27/19 16:20
[2019-02-27 10:00] LABS: ALBUMIN 3.9 g/dL (3.2-5.5); ALBUMIN/GLOBULIN RATIO 1.6 (1.0-2.2); BILIRUBIN,TOTAL 0.7 mg/dL (0.2-1.0); CALCIUM 8.5 mg/dL (8.5-10.3); CREATININE 0.9 mg/dL (0.6-1.2); TOTAL PROTEIN 6.4 g/dL (6.7-8.2)
--- NOTE | 2019-02-27 10:13 | XRAY Report ---
Reason: chest pain Procedure Date: 02/27/2019 Accession Number: [id number] / [id number] Procedure: XR - Chest 1 View X-Ray CPT Code: 80800 FULL RESULT: EXAM: CHEST RADIOGRAPHY EXAM DATE: 02/27/2019 09:49 AM. CLINICAL HISTORY: Chest pain. COMPARISON: CHEST 2 VIEW 08/02/2018 6:35 PM. TECHNIQUE: 1 view. FINDINGS: Lungs/Pleura: Lung volumes are low. There is mild asymmetric elevation of the right hemidiaphragm. No focal opacities evident. No pleural effusion. No pneumothorax. Mediastinum: Within exam limitations, the cardiomediastinal contour is normal. Other: No acute osseous abnormality. IMPRESSION: Low lung volumes with mild asymmetric elevation of the right hemidiaphragm. Otherwise unremarkable chest with no acute interval change. RADIA
[2019-02-27] MEDS ORDERED: INSULIN REGULAR HUMAN 100 UNIT/1 ML 10 ML MDV SUBQ STA (10:57)
[2019-02-27] MEDS ORDERED: MAG HYDROX/AL HYDROX/SIMETH 30 ML UDC PO STA (10:58)
[2019-02-27] MEDS ORDERED: LIDOCAINE VISCOUS 2% 15 ML UDC MM STA (10:58)
[2019-02-27 15:55] VITALS: BP 135/81
== END 2019-02-27 16:20 | disposition home or self-care (01) ==
LOC: ED 09:20
DX: I20.9 Angina pectoris, unspecified (principal); E11.65 Type 2 diabetes mellitus with hyperglycemia; D59.1 Other autoimmune hemolytic anemias; I11.9 Hypertensive heart disease without heart failure; Z95.5 Presence of coronary angioplasty implant and graft; Z79.84 Long term (current) use of oral hypoglycemic drugs; Z87.19 Personal history of other diseases of the digestive system
CPT/HCPCS: 36415; 71045; 80053; 83690; 84484; 85025; 93005; 99284; A9270; J1815

== ENCOUNTER 2019-03-11 10:42 | Outpatient (CLI) | payer MEDICARE, OTHER ==
[2019-03-11 20:34] LABS: FERRITIN 288.4 ng/mL (23.9-336.2)
[2019-03-11 20:58] LABS: % IRON SATURATION 28 % (20-50); IRON 94 ug/dL (45-182); TOTAL IRON BINDING CAPACITY 333 ug/dL (250-450); TRANSFERRIN 238 mg/dL (180-329)
== END 2019-03-11 10:43 | disposition home or self-care (01) ==
LOC: LAB.WCP 10:42
PROVIDERS: ATTEND Family Medicine
DX: D55.9 Anemia due to enzyme disorder, unspecified (principal); R53.83 Other fatigue; I10 Essential (primary) hypertension; E11.9 Type 2 diabetes mellitus without complications; K21.9 Gastro-esophageal reflux disease without esophagitis
CPT/HCPCS: 36415; 82728; 83540; 84443; 84466

== ENCOUNTER 2019-03-15 08:47 | Emergency (ER) | payer MEDICARE, OTHER ==
--- NOTE | 2019-03-15 09:05 | ED Physician Documentation ---
PD HPI CHEST PAIN - Stated complaint Stated Complaint: CHEST PAIN, SOA - Chief complaint Chief Complaint: Cardiac - History obtained from History obtained from: Patient - History of Present Illness Timing - onset: How many days ago (3) Timing - onset during: Rest Timing - duration: Days (3) Timing - details: Gradual onset, Constant Pain level max: 7 Pain level now: 5 Quality: Pressure, Tightness, Sharp, Like prior ACS Location: Substernal Radiation: No: Jaw, Neck, Back, Abdominal, Left upper extremity, Right upper extremity Improved by: Nitro, ASA Worsened by: No: Exertion, Inspiration, Eating, Movement, Palpation, Position Similar symptoms before: Diagnosis (ACS) Recently seen: Not recently seen - Additional information Additional information: 68-year-old male, sharp posterior chest pain for the past 3 days or so. Scheduled to have a cardiac cath at [facility] in [place] on . States that the pain is steadily worsened since seeing his soda tester 3 days ago. States it feels similar to the last time that he had a stent placed. Review of Systems Ten Systems: 10 systems reviewed and negative Constitutional: denies: Fever, Chills Cardiac: denies: Chest pain / pressure Respiratory: denies: Cough GI: denies: Nausea, Vomiting, Diarrhea Skin: denies: Rash Musculoskeletal: denies: Neck pain Neurologic: denies: Focal weakness, Numbness, Headache PD PAST MEDICAL HISTORY - Past Medical History Cardiovascular: Hypertension, High cholesterol, Coronary artery disease, Angina, [place], Arrhythmia Respiratory: None, Pneumonia Endocrine/Autoimmune: Type 2 diabetes GI: GERD, GI bleed, Ulcers : None HEENT: None Psych: Depression Musculoskeletal: Chronic back pain Derm: None - Past Surgical History Past Surgical History: Yes General: Cholecystectomy Cardiovascular: Coronary stent, Cardiac catheterization, Angioplasty - Present Medications Home Medications: Ambulatory Orders Medication Instructions Recorded Confirmed Atorvastatin [Lipitor] 40 mg PO DAILY 11/24/15 02/27/19 Nitroglycerin [Nitrostat] 0.4 mg PO DAILY PRN 11/24/15 02/27/19 Pantoprazole [Protonix] 40 mg PO BIDAC 02/13/16 02/27/19 Aspirin [Adult Low Dose Aspirin EC] 81 mg PO DAILY 02/15/16 02/27/19 Insulin Glargine,Hum.rec.anlog 35 units SQ BID 03/05/16 02/27/19 [Lantus] Ferrous Sulfate [Feosol] 65 mg PO DAILY 06/11/16 02/27/19 Insulin Lispro [Humalog] 10 unit SUBQ TID 06/11/16 02/27/19 Cetirizine [ZyrTEC] 10 mg PO DAILY 06/17/16 02/27/19 FLUoxetine [PROzac] 40 mg PO DAILY 06/17/16 02/27/19 amLODIPine [Norvasc] 10 mg PO DAILY 11/19/16 02/27/19 Nortriptyline [Pamelor] 2 tab ORAL DAILY 07/07/18 02/27/19 Hydrocodone/Acetaminophen 1 tab ORAL PRN PRN 08/02/18 02/27/19 [Hydrocodone-Acetamin 5-325 mg] Metoprolol Tartrate 100 mg PO DAILY 10/06/18 02/27/19 Ranolazine [Ranexa] 500 mg PO DAILY 10/06/18 02/27/19 metFORMIN [Glucophage] 500 mg PO ONCE 10/06/18 02/27/19 Telmisartan 80 mg PO DAILY 02/27/19 02/27/19 - Allergies Allergies/Adverse Reactions: Allergies Allergy/AdvReac Type Severity Reaction Status Date / Time azithromycin AdvReac Unknown Verified 03/15/19 08:56 - Social History Does the pt smoke?: No Smoking Status: Never smoker Does the pt drink ETOH?: No Does the pt have substance abuse?: No - Immunizations Immunizations are current?: Yes - POLST Patient has POLST: No PD ED PE NORMAL - Vitals Vital signs reviewed: Yes - General General: Alert and oriented X 3, No acute distress, Well developed/nourished - HEENT HEENT: PERRL, Moist mucous membranes - Neck Neck: Supple, no meningeal sign - Cardiac Cardiac: RRR, Strong equal pulses - Respiratory Respiratory: No respiratory distress, Clear bilaterally - Abdomen Abdomen: Soft, Non tender, Non distended - Back Back: No spinal TTP - Derm Derm: Warm and dry - Extremities Extremities: No edema, No calf tenderness / cord - Neuro Neuro: Alert and oriented X 3 - Psych Psych: Normal mood, Normal affect Results - Vitals Vitals: Vital Signs - 24 hr 03/15/19 03/15/19 08:54 08:56 Temperature 36 C L Heart Rate 90 81 Respiratory 22 15 Rate Blood Pressure 160/89 H 133/95 H O2 Saturation 98 95 Oxygen O2 Source [] Room air O2 Source Room air - EKG (time done) 0857 Rate: Rate (enter#) (85) Rhythm: NSR [place]: Normal Intervals: Normal CT QRS: Normal Ischemia: Normal ST segments - Labs Labs: Laboratory Tests 03/15/19 03/15/19 03/15/19 09:16 09:16 09:16 WBC 7.9 RBC 4.91 Hgb 15.2 Hct 44.5 MCV 90.6 MCH 30.9 MCHC 34.1 RDW 12.6 Plt Count 164 MPV 8.0 Neut # (Auto) 5.5 Lymph # (Auto) 1.0 L [place] # (Auto) 0.9 Eos # (Auto) 0.3 Baso # (Auto) 0.1 Absolute Nucleated RBC 0.00 Nucleated RBC % 0.0 Sodium 131 L Potassium 4.0 Chloride 96 L Carbon Dioxide 23 Anion Gap 12.0 BUN 10 Creatinine 0.8 Estimated GFR (MDRD) 96 Glucose 264 H Calcium 8.7 Total Bilirubin 0.8 AST 23 ALT 27 Alkaline Phosphatase 111 Troponin I < 0.04 Total Protein 6.9 Albumin 4.1 Globulin 2.8 Albumin/Globulin Ratio 1.5 Lipase 29 - Rads (name of study) cxr Radiology: Prelim report reviewed, EMP read contemporaneously, See rad report (Normal single view chest. ) PD MEDICAL DECISION MAKING - ED course Complexity details: reviewed old records, reviewed results, re-evaluated patient, considered differential, d/w patient, d/w digital marketing consultant ED course: 68-year-old male presents to the emergency department with chest pain for the past 3 days. This is been steadily worsening. He is scheduled to have a cardiac catheterization on . I discussed the case with Dr. Archuleta, cardiology at [facility] in [place] who accepts in transfer. He does not recommend a heparin drip at this time. Patient is stable. Took aspirin this morning. This document was made in part using voice recognition software. While efforts are made to proofread this document, sound alike and grammatical errors may occur. Departure - Departure Disposition: 02 Transfer Acute Care Hosp Clinical Impression: Chest pain Qualifiers: Chest pain type: unspecified Qualified Code(s): R07.9 - Chest pain, unspecified Condition: Stable
[2019-03-15 09:19] LABS: BASOPHILS # (AUTO) 0.1 10^3/uL (0.0-0.1); BASOPHILS % (AUTO) 1.7 %; EOSINOPHILS # (AUTO) 0.3 10^3/uL (0.0-0.7); EOSINOPHILS % (AUTO) 4.3 %; HGB - HEMOGLOBIN 15.2 g/dL (14.0-18.0); LYMPHOCYTES % (AUTO) 12.8 %; MEAN CORPUSCULAR HEMOGLOBIN 30.9 pg (27.0-31.0); MEAN CORPUSCULAR HGB CONC 34.1 g/dL (32.0-36.0); MEAN CORPUSCULAR VOLUME 90.6 fL (80.0-94.0); MONOCYTES # (AUTO) 0.9 10^3/uL (0.0-1.0); MONOCYTES % (AUTO) 11.6 %; NEUTROPHILS # (AUTO) 5.5 10^3/uL (1.5-6.6); NEUTROPHILS % (AUTO) 69.6 %; PLT - PLATELET COUNT 164 10^3/uL (130-450); RED BLOOD COUNT 4.91 10^6/uL (4.70-6.10); RED CELL DISTRIBUTION WIDTH 12.6 % (12.0-15.0); WHITE BLOOD COUNT 7.9 x10^3/uL (4.8-10.8)
[2019-03-15] MEDS ORDERED: MORPHINE 2 MG/ML CARPUJECT IVP STA ×2 (09:23→11:18)
[2019-03-15 09:31] LABS: ALBUMIN 4.1 g/dL (3.2-5.5); ALBUMIN/GLOBULIN RATIO 1.5 (1.0-2.2); BILIRUBIN,TOTAL 0.8 mg/dL (0.2-1.0); CALCIUM 8.7 mg/dL (8.5-10.3); CREATININE 0.8 mg/dL (0.6-1.2); TOTAL PROTEIN 6.9 g/dL (6.7-8.2)
--- NOTE | 2019-03-15 09:44 | XRAY Report ---
Reason: chest pain Procedure Date: 03/15/2019 Accession Number: [id number] / [id number] Procedure: XR - Chest 1 View X-Ray CPT Code: 38559 FULL RESULT: EXAM: CHEST RADIOGRAPHY EXAM DATE: 03/15/2019 09:17 AM. CLINICAL HISTORY: Chest pain. COMPARISON: CHEST 1 VIEW 02/27/2019 9:35 AM. TECHNIQUE: 1 view. FINDINGS: Lungs/Pleura: No focal opacities evident. No pleural effusion. No pneumothorax. Mediastinum: Within exam limitations, the cardiomediastinal contour is normal. Other: None. IMPRESSION: Normal single view chest. RADIA
[2019-03-15] MEDS ORDERED: SODIUM CHLORIDE 0.9% 1,000 ML IV ONE (10:16)
[2019-03-15 12:50] VITALS: BP 130/70
== END 2019-03-15 13:21 | disposition short-term general hospital (02) ==
LOC: ED 08:47
DX: R07.89 Other chest pain (principal); I25.10 Atherosclerotic heart disease of native coronary artery without angina pectoris; I25.2 Old myocardial infarction; I10 Essential (primary) hypertension; Z95.5 Presence of coronary angioplasty implant and graft; E11.9 Type 2 diabetes mellitus without complications; Z79.4 Long term (current) use of insulin; K21.9 Gastro-esophageal reflux disease without esophagitis; Z79.82 Long term (current) use of aspirin
CPT/HCPCS: 36415; 71045; 80053; 83690; 84484; 85025; 93005; 96374; 96376; 99284

== ENCOUNTER 2019-04-09 08:00 | Outpatient (CLI) | payer MEDICARE, OTHER | END 2019-04-09 08:01 | disposition home or self-care (01) | LOC: LAB.WCP 08:00 | PROVIDERS: ATTEND Family Medicine | DX: I48.0 Paroxysmal atrial fibrillation (principal); Z79.01 Long term (current) use of anticoagulants ==

== ENCOUNTER 2019-04-16 08:00 | Outpatient (CLI) | payer MEDICARE, OTHER | END 2019-04-16 08:01 | disposition home or self-care (01) | LOC: LAB.WCP 08:00 | PROVIDERS: ATTEND Family Medicine | DX: I48.0 Paroxysmal atrial fibrillation (principal); Z79.01 Long term (current) use of anticoagulants ==

== ENCOUNTER 2019-04-24 08:00 | Outpatient (CLI) | payer MEDICARE, OTHER ==
[2019-04-24 12:57] LABS: ALBUMIN 4.2 g/dL (3.2-5.5); ALBUMIN/GLOBULIN RATIO 1.8 (1.0-2.2); BILIRUBIN,TOTAL 0.6 mg/dL (0.2-1.0); CALCIUM 8.7 mg/dL (8.5-10.3); TOTAL PROTEIN 6.5 g/dL (6.7-8.2)
[2019-04-24 13:01] LABS: HB2 TOTAL 14.6 g/dL; HEMOGLOBIN A1C 0.61 g/dL
== END 2019-04-24 23:59 | disposition home or self-care (01) ==
LOC: LAB.WCP 08:00
PROVIDERS: ATTEND Family Medicine
DX: E11.40 Type 2 diabetes mellitus with diabetic neuropathy, unspecified (principal); K50.90 Crohn's disease, unspecified, without complications; I10 Essential (primary) hypertension
CPT/HCPCS: 36415; 80053; 83036

== ENCOUNTER 2019-05-07 08:00 | Outpatient (CLI) | payer MEDICARE, OTHER | END 2019-05-07 08:01 | disposition home or self-care (01) | LOC: LAB.WCP 08:00 | PROVIDERS: ATTEND Family Medicine | DX: I48.0 Paroxysmal atrial fibrillation (principal); Z79.01 Long term (current) use of anticoagulants ==

== ENCOUNTER 2019-05-28 08:00 | Outpatient (CLI) | payer MEDICARE, OTHER | END 2019-05-28 23:59 | disposition home or self-care (01) | LOC: LAB.WCP 08:00 | PROVIDERS: ATTEND Family Medicine | DX: I48.0 Paroxysmal atrial fibrillation (principal); Z79.01 Long term (current) use of anticoagulants ==

== ENCOUNTER 2019-06-11 08:00 | Outpatient (CLI) | payer MEDICARE, OTHER | END 2019-06-11 23:59 | disposition home or self-care (01) | LOC: LAB.WCP 08:00 | PROVIDERS: ATTEND Family Medicine | DX: I48.0 Paroxysmal atrial fibrillation (principal); Z79.01 Long term (current) use of anticoagulants ==

== ENCOUNTER 2019-06-19 08:00 | Outpatient (CLI) | payer MEDICARE, OTHER | END 2019-06-19 23:59 | disposition home or self-care (01) | LOC: LAB.WCP 08:00 | PROVIDERS: ATTEND Family Medicine | DX: I48.0 Paroxysmal atrial fibrillation (principal); Z79.01 Long term (current) use of anticoagulants ==

== ENCOUNTER 2019-06-26 08:00 | Outpatient (CLI) | payer MEDICARE, OTHER | END 2019-06-26 23:59 | disposition home or self-care (01) | LOC: LAB.WCP 08:00 | PROVIDERS: ATTEND Family Medicine | DX: I48.0 Paroxysmal atrial fibrillation (principal); Z79.01 Long term (current) use of anticoagulants ==

== ENCOUNTER 2019-09-04 11:11 | Outpatient (CLI) | payer MEDICARE, OTHER ==
--- NOTE | 2019-09-04 12:16 | XRAY Report ---
Reason: WORSENING COUGH,CRACKLES, LLL LUNGFIELDS Procedure Date: 09/04/2019 Accession Number: [id number] / [id number] Procedure: XR - Chest 2 View X-Ray CPT Code: 91942 Final Report FULL RESULT: EXAM: CHEST RADIOGRAPHY EXAM DATE: 09/04/2019 11:17 AM. CLINICAL HISTORY: WORSENING COUGH,CRACKLES, LLL LUNGFIELDS. COMPARISON: CHEST 1 VIEW 03/15/2019 9:06 AM CHEST 1 VIEW 02/27/2019 9:35 AM. TECHNIQUE: 2 views. FINDINGS: Lungs/Pleura: Stable elevation of the right hemidiaphragm. Increased right basilar opacities could reflect atelectasis or infiltrate in the correct clinical setting. Otherwise clear lungs without other focal consolidation, pleural effusion, or pneumothorax. Mediastinum: Interval median sternotomy changes. Atrial appendage clip is present. Stable size of cardiomediastinal silhouette. Other: Cholecystectomy clips project over right upper abdomen. Postoperative changes in right humeral head. IMPRESSION: 1. Stable elevation of right hemidiaphragm with increased right basilar opacities compared to prior exam. Findings could reflect atelectasis or infiltrate in the correct clinical setting. 2. Otherwise clear lungs. 3. Interval postoperative changes related to median sternotomy and placement of atrial appendage clip. RADIA
== END 2019-09-04 11:12 | disposition home or self-care (01) ==
LOC: DI 11:11
PROVIDERS: ATTEND Physician Assistant
DX: R91.8 Other nonspecific abnormal finding of lung field (principal)
CPT/HCPCS: 71046

== ENCOUNTER 2019-11-11 09:00 | Outpatient (CLI) | payer MEDICARE, OTHER ==
[2019-11-11 12:03] LABS: BASOPHILS # (AUTO) 0.1 10^3/uL (0.0-0.1); BASOPHILS % (AUTO) 1.1 %; EOSINOPHILS # (AUTO) 0.5 10^3/uL (0.0-0.7); HGB - HEMOGLOBIN 15.5 g/dL (14.0-18.0); LYMPHOCYTES # (AUTO) 0.7 10^3/uL (1.5-3.5); LYMPHOCYTES % (AUTO) 11.5 %; MEAN CORPUSCULAR HEMOGLOBIN 31.5 pg (27.0-31.0); MEAN CORPUSCULAR HGB CONC 33.9 g/dL (32.0-36.0); MEAN CORPUSCULAR VOLUME 92.9 fL (80.0-94.0); MEAN PLATELET VOLUME 10.9 fL (7.4-11.4); MONOCYTES # (AUTO) 0.6 10^3/uL (0.0-1.0); NEUTROPHILS # (AUTO) 4.4 10^3/uL (1.5-6.6); NEUTROPHILS % (AUTO) 69.1 %; PLT - PLATELET COUNT 147 10^3/uL (130-450); RED BLOOD COUNT 4.92 10^6/uL (4.70-6.10); WHITE BLOOD COUNT 6.4 x10^3/uL (4.8-10.8)
[2019-11-11 12:17] LABS: ALBUMIN 4.2 g/dL (3.2-5.5); ALBUMIN/GLOBULIN RATIO 1.8 (1.0-2.2); BILIRUBIN,TOTAL 0.8 mg/dL (0.2-1.0); CALCIUM 8.7 mg/dL (8.5-10.3); CREATININE 1.1 mg/dL (0.6-1.2); INR 1.1 (0.8-1.2); PT - PROTHROMBIN TIME 12.7 secs (9.9-12.6); TOTAL PROTEIN 6.5 g/dL (6.7-8.2)
[2019-11-11 12:24] LABS: PARTIAL THROMBOPLASTIN TIME 31.1 secs (24.9-33.3)
[2019-11-11 12:25] LABS: HB2 TOTAL 15.5 g/dL; HEMOGLOBIN A1C 0.89 g/dL; HEMOGLOBIN A1C % 7.4 % (4.6-6.2)
== END 2019-11-11 09:01 | disposition home or self-care (01) ==
LOC: LAB.WCP 09:00
PROVIDERS: ATTEND Family Medicine
DX: I48.0 Paroxysmal atrial fibrillation (principal); I25.10 Atherosclerotic heart disease of native coronary artery without angina pectoris; I10 Essential (primary) hypertension; E11.40 Type 2 diabetes mellitus with diabetic neuropathy, unspecified
CPT/HCPCS: 36415; 80053; 83036; 85025; 85610; 85730

== ENCOUNTER 2020-09-06 09:36 | Outpatient (CLI) | payer MEDICARE, OTHER ==
[2020-09-06] MEDS ORDERED: IOVERSOL 320 50 ML VIAL ONE (09:53)
[2020-09-06] MEDS ORDERED: IOVERSOL 320 100 ML VIAL IVP ONE ×2 (09:55→11:54)
[2020-09-06] MEDS ORDERED: IOVERSOL 320 50 ML VIAL PO ONE (11:54)
--- NOTE | 2020-09-06 17:21 | CT Report ---
PROCEDURE: Abdomen/Pelvis W INDICATIONS: RLQ ABD PAIN, CROHNS DISEASE CONTRAST: IV CONTRAST: Optiray 320 ml: 100 PO CONTRAST: Optiray 320 ml50 TECHNIQUE: After the administration of by mouth and IV contrast, 5 mm thick sections acquired from the diaphragm s to the symphysis. 5 mm thick coronal and sagittal reformats were acquired. For radiation dose red uction, the following was used: automated exposure control, adjustment of mA and/or kV according to patient size. COMPARISON: CT abdomen pelvis 02/03/2018 FINDINGS: Image quality: Excellent. ABDOMEN: Lung bases: Lung bases are clear. Heart size is normal. Solid organs: Liver mildly enlarged with steatosis. Spleen is normal in size and enhancement. Gallb ladder has been removed Biliary system is non dilated. Pancreas enhances normally. No adrenal nodu les. Kidneys demonstrate normal size and enhancement, without hydronephrosis. Peritoneum and bowel: Bowel loops are nonobstructive. Minimal scattered diverticula are present. Ap pendix is unremarkable. No free fluid or air. Bowel loops demonstrate no areas of abnormal thickenin g or inflammatory change. No strictures are identified. Nodes and vessels: No retroperitoneal or mesenteric adenopathy by size criteria. Aorta and inferior vena cava are normal in size. Miscellaneous: No ventral hernias. PELVIS: Genitourinary: Bladder wall thickness is normal. Miscellaneous: No inguinal hernias or adenopathy. Bones: No suspicious bony lesions. No vertebral body compression fractures. IMPRESSION: 1. No visualized cause of right lower quadrant pain. Appendix is unremarkable. 2. Diverticulosis. Reviewed by: Shannen Raphael MD on 09/06/2020 5:20 PM PST Approved by: Shannen Raphael MD on 09/06/2020 5:20 PM PST Station ID: [id number]
== END 2020-09-06 09:37 | disposition home or self-care (01) ==
LOC: DI 09:36
PROVIDERS: ATTEND Physician Assistant
DX: K57.90 Diverticulosis of intestine, part unspecified, without perforation or abscess without bleeding (principal)
CPT/HCPCS: 36415; 74177; 82565; 84520; Q9967

== ENCOUNTER 2020-09-19 08:00 | Outpatient (CLI) | payer MEDICARE, OTHER ==
[2020-09-19 14:16] LABS: BUN - BLOOD UREA NITROGEN 10 mg/dL (6-20); CALCIUM 8.7 mg/dL (8.5-10.3); CARBON DIOXIDE - CO2 25 mmol/L (21-32); CHLORIDE 102 mmol/L (101-111); CHOL/HDL RATIO 4.1 (<5.0); CHOLESTEROL 139 mg/dL; CREATININE 0.9 mg/dL (0.6-1.2); GLUCOSE 274 mg/dL (70-100); HDL CHOLESTEROL 34 mg/dL; LDL CHOLESTEROL,CALCULATED 50 mg/dL; LDL/HDL RATIO 1.5 (<3.6); SODIUM 137 mmol/L (135-145); VLDL CHOLESTEROL 55 mg/dL
[2020-09-19 14:37] LABS: HEMOGLOBIN A1c% 9.7 % (4.27-6.07)
[2020-09-19 19:29] LABS: CREATININE,URINE 93.3 mg/dL; MICROALBUM/CREATININE RATIO,UR 4.3 ug/mg (<30.0); MICROALBUMIN,URINE 0.4 mg/dL (0-300.0)
== END 2020-09-19 23:59 | disposition home or self-care (01) ==
LOC: LAB.WCP 08:00
PROVIDERS: ATTEND Internal Medicine
DX: E11.40 Type 2 diabetes mellitus with diabetic neuropathy, unspecified (principal)
CPT/HCPCS: 36415; 80048; 80061; 82043; 82570; 83036; 83721

== ENCOUNTER 2020-09-26 08:00 | Outpatient (CLI) | payer MEDICARE, OTHER ==
[2020-09-26 20:13] LABS: BASOPHILS % (AUTO) 0.6 %; EOSINOPHILS # (AUTO) 0.3 10^3/uL (0.0-0.7); EOSINOPHILS % (AUTO) 3.9 %; HGB - HEMOGLOBIN 16.3 g/dL (14.0-18.0); LYMPHOCYTES # (AUTO) 0.8 10^3/uL (1.5-3.5); LYMPHOCYTES % (AUTO) 12.8 %; MEAN CORPUSCULAR HEMOGLOBIN 31.7 pg (27.0-31.0); MEAN CORPUSCULAR HGB CONC 34.9 g/dL (32.0-36.0); MEAN CORPUSCULAR VOLUME 90.9 fL (80.0-94.0); MEAN PLATELET VOLUME 11.4 fL (7.4-11.4); MONOCYTES # (AUTO) 0.8 10^3/uL (0.0-1.0); MONOCYTES % (AUTO) 12.6 %; NEUTROPHILS # (AUTO) 4.4 10^3/uL (1.5-6.6); NEUTROPHILS % (AUTO) 69.8 %; PLT - PLATELET COUNT 126 10^3/uL (130-450); RED BLOOD COUNT 5.14 10^6/uL (4.70-6.10); RED CELL DISTRIBUTION WIDTH 12.1 % (12.0-15.0); WHITE BLOOD COUNT 6.3 x10^3/uL (4.8-10.8)
[2020-09-26 20:27] LABS: ALBUMIN 4.3 g/dL (3.2-5.5); ALBUMIN/GLOBULIN RATIO 1.9 (1.0-2.2); BILIRUBIN,TOTAL 0.9 mg/dL (0.2-1.0); CALCIUM 9.2 mg/dL (8.5-10.3); CREATININE 0.9 mg/dL (0.6-1.2); TOTAL PROTEIN 6.6 g/dL (6.7-8.2)
== END 2020-09-26 23:59 | disposition home or self-care (01) ==
LOC: LAB.WCP 08:00
PROVIDERS: ATTEND Internal Medicine
DX: R10.9 Unspecified abdominal pain (principal)
CPT/HCPCS: 36415; 80053; 83690; 85025

== ENCOUNTER 2020-11-15 09:12 | Emergency (ER) | payer MEDICARE, OTHER ==
[2020-11-15 09:36] LABS: BASOPHILS # (AUTO) 0.1 10^3/uL (0.0-0.1); EOSINOPHILS # (AUTO) 0.3 10^3/uL (0.0-0.7); EOSINOPHILS % (AUTO) 4.6 %; HGB - HEMOGLOBIN 16.9 g/dL (14.0-18.0); LYMPHOCYTES # (AUTO) 1.1 10^3/uL (1.5-3.5); LYMPHOCYTES % (AUTO) 18.3 %; MEAN CORPUSCULAR HEMOGLOBIN 31.6 pg (27.0-31.0); MEAN CORPUSCULAR HGB CONC 34.6 g/dL (32.0-36.0); MEAN CORPUSCULAR VOLUME 91.6 fL (80.0-94.0); MEAN PLATELET VOLUME 9.6 fL (7.4-11.4); MONOCYTES # (AUTO) 0.7 10^3/uL (0.0-1.0); MONOCYTES % (AUTO) 11.4 %; NEUTROPHILS # (AUTO) 3.9 10^3/uL (1.5-6.6); NEUTROPHILS % (AUTO) 64.4 %; PLT - PLATELET COUNT 142 10^3/uL (130-450); RED BLOOD COUNT 5.34 10^6/uL (4.70-6.10); RED CELL DISTRIBUTION WIDTH 11.9 % (12.0-15.0); WHITE BLOOD COUNT 6.1 x10^3/uL (4.8-10.8)
--- NOTE | 2020-11-15 09:37 | ED Physician Documentation ---
PD HPI CHEST PAIN - Stated complaint Stated Complaint: CHEST PX,SOA - Chief complaint Chief Complaint: Cardiac - History obtained from History obtained from: Patient - History of Present Illness Timing - onset: Enter time (0700), Today Timing - onset during: Rest Timing - duration: Hours Timing - details: Abrupt onset Pain level max: 6 Pain level now: 4 Quality: Pressure, Tightness Location: Substernal, Left chest Radiation: Neck Improved by: Rest Associated symptoms: Shortness of air Similar symptoms before: Diagnosis Recently seen: Not recently seen - Additional information Additional information: 69-year-old male with a history of coronary artery disease and diabetes hypertension and hemolytic anemia comes into the emergency department with chest pain that began this morning. He states that he has been feeling well prior to this he developed chest pain radiated up into his neck and he is come to the emerge department for evaluation he feels somewhat short of breath with this as well. He does note an increase in his polyuria polydipsia. He has been checking his sugars they are running over 200. He does not have a cough or fever. Review of Systems Constitutional: denies: Fever Eyes: denies: Decreased vision Ears: denies: Ear pain Nose: denies: Congestion Throat: denies: Sore throat Cardiac: reports: Chest pain / pressure. denies: Palpitations, Pedal edema, Calf pain Respiratory: reports: Dyspnea. denies: Cough, Wheezing GI: denies: Abdominal Pain, Nausea, Vomiting : denies: Dysuria, Frequency PD PAST MEDICAL HISTORY - Past Medical History Cardiovascular: Hypertension, High cholesterol, Coronary artery disease, Angina, ID, Arrhythmia Respiratory: None, Pneumonia Endocrine/Autoimmune: Type 2 diabetes GI: GERD, GI bleed, Ulcers : None HEENT: None Psych: Depression Musculoskeletal: Chronic back pain Derm: None - Past Surgical History Past Surgical History: Yes General: Cholecystectomy Cardiovascular: Coronary stent, Cardiac catheterization, Angioplasty - Present Medications Home Medications: Ambulatory Orders Medication Instructions Recorded Confirmed Atorvastatin [Lipitor] 80 mg PO DAILY 11/24/15 04/18/20 Pantoprazole [Protonix] 40 mg PO BIDAC 02/13/16 04/18/20 Aspirin [Adult Low Dose Aspirin EC] 81 mg PO DAILY 02/15/16 04/18/20 Insulin Glargine,Hum.rec.anlog 25 units SQ BID 03/05/16 04/18/20 [Lantus] Ferrous Sulfate [Feosol] 325 mg PO DAILY 06/11/16 04/18/20 Insulin Lispro [Humalog] 10 unit SUBQ TID 06/11/16 04/18/20 Cetirizine [ZyrTEC] 10 mg PO DAILY 06/17/16 04/18/20 FLUoxetine [PROzac] 40 mg PO DAILY 06/17/16 04/18/20 Hydrocodone/Acetaminophen 1 tab ORAL PRN PRN 08/02/18 04/18/20 [Hydrocodone-Acetamin 5-325 mg] Metoprolol Tartrate 100 mg PO DAILY 10/06/18 04/18/20 Famotidine [Pepcid AC] 20 mg PO BID 04/06/19 04/18/20 Folic Acid/Vit B Complex and C [Sm 400 mcg PO DAILY 04/06/19 04/18/20 Super Vitamin B Complex Tab] Tamsulosin [Flomax] 0.4 mg PO DAILY 04/06/19 04/18/20 Mesalamine [Pentasa] 4 cap PO BID 04/18/20 04/18/20 - Allergies Allergies/Adverse Reactions: Allergies Allergy/AdvReac Type Severity Reaction Status Date / Time azithromycin AdvReac Unknown Verified 11/15/20 09:17 - Social History Does the pt smoke?: No Smoking Status: Never smoker Does the pt drink ETOH?: No Does the pt have substance abuse?: No - Immunizations Immunizations are current?: Yes - POLST Patient has POLST: No PD ED PE NORMAL - Vitals Vital signs reviewed: Yes (Hypertensive) - General General: Alert and oriented X 3, No acute distress, Well developed/nourished - HEENT HEENT: Atraumatic, PERRL, EOMI, Other (Dry mucous membranes) - Neck Neck: Supple, no meningeal sign, No bony TTP - Cardiac Cardiac: RRR, No murmur - Respiratory Respiratory: Other (Tachypneic at rest with clear breath sounds) - Abdomen Abdomen: Normal bowel sounds, Soft, Non tender, No organomegaly - Back Back: No CVA TTP, No spinal TTP - Derm Derm: Normal color, Warm and dry, No rash - Extremities Extremities: No deformity, Normal ROM s pain, No edema - Neuro Neuro: Alert and oriented X 3, alteration specialist 2-12 intact, No motor deficit, No sensory deficit, Normal speech Eye Opening: Spontaneous Motor: Obeys Commands Verbal: Oriented GCS Score: 15 - Psych Psych: Normal mood, Normal affect Results - Vitals Vitals: Vital Signs - 24 hr 11/15/20 11/15/20 11/15/20 09:17 09:54 10:24 Temperature 36.7 C Heart Rate 80 81 78 Respiratory 17 15 18 Rate Blood Pressure 184/89 H 153/87 H 151/79 H O2 Saturation 95 97 97 11/15/20 11/15/20 11/15/20 10:30 11:00 11:30 Temperature Heart Rate 76 76 76 Respiratory 15 17 16 Rate Blood Pressure 149/74 H 150/76 H 136/85 H O2 Saturation 96 96 95 11/15/20 11/15/20 12:00 12:30 Temperature Heart Rate 74 78 Respiratory 18 11 L Rate Blood Pressure 152/87 H 158/80 H O2 Saturation 99 96 Oxygen O2 Source [] Room air O2 Source Room air - EKG (time done) 0918 Rate: Rate (enter#) (82) Other comments: Other comments (early transition ) Compare to prior EKG: Unchanged from prior EKG (SPT 03-15-2019 no sig changes) Computer interpretation: Agree with computer - Labs Labs: Laboratory Tests 11/15/20 11/15/20 11/15/20 09:30 09:30 09:30 WBC 6.1 RBC 5.34 Hgb 16.9 Hct 48.9 MCV 91.6 MCH 31.6 H MCHC 34.6 RDW 11.9 L Plt Count 142 MPV 9.6 Neut # (Auto) 3.9 Lymph # (Auto) 1.1 L [place] # (Auto) 0.7 Eos # (Auto) 0.3 Baso # (Auto) 0.1 Absolute Nucleated RBC 0.00 Nucleated RBC % 0.0 Sodium 136 Potassium 4.8 Chloride 97 L Carbon Dioxide 27 Anion Gap 12.0 BUN 10 Creatinine 1.1 Estimated GFR (MDRD) 66 L Glucose 335 H Calcium 9.2 Total Bilirubin 0.8 AST 32 ALT 35 Alkaline Phosphatase 135 H Troponin I High Sens 4.1 B-Natriuretic Peptide Total Protein 6.8 Albumin 4.4 Globulin 2.4 Albumin/Globulin Ratio 1.8 Lipase 39 11/15/20 09:30 WBC RBC Hgb Hct MCV MCH MCHC RDW Plt Count MPV Neut # (Auto) Lymph # (Auto) [place] # (Auto) Eos # (Auto) Baso # (Auto) Absolute Nucleated RBC Nucleated RBC % Sodium Potassium Chloride Carbon Dioxide Anion Gap BUN Creatinine Estimated GFR (MDRD) Glucose Calcium Total Bilirubin AST ALT Alkaline Phosphatase Troponin I High Sens B-Natriuretic Peptide 43 Total Protein Albumin Globulin Albumin/Globulin Ratio Lipase - Rads (name of study) chest Radiology: Prelim report reviewed (Impression: No acute cardiopulmonary process demonstrated radiographically ), EMP read indepedently, See rad report PD MEDICAL DECISION MAKING - ED course Complexity details: reviewed old records, reviewed results, re-evaluated patient, considered differential, d/w patient ED course: 69 y/o diabetic male with chest pain for hours has a negative trop and is found to be dehydrated. He is administered IV saline and feels improved. His diagnostics are otherwise showing elevated glucose. He is administered IV insulin as well. Departure - Departure Disposition: 01 Home, Self Care Clinical Impression: Dehydration, Atypical chest pain Hyperglycemia due to type 2 diabetes mellitus Qualifiers: Diabetes mellitus skilled nursing insulin use: with tank terminal gauger use Qualified Code(s): E11.65 - Type 2 diabetes mellitus with hyperglycemia Condition: Stable Instructions: ED Chest Pain Atypical Unkn Cause, ED Hyperglycemia Diabetic, ED Dehydration Follow-Up: Regino Erazo MD [Primary Care Provider] -
[2020-11-15 09:48] LABS: ALBUMIN 4.4 g/dL (3.2-5.5); ALBUMIN/GLOBULIN RATIO 1.8 (1.0-2.2); BILIRUBIN,TOTAL 0.8 mg/dL (0.2-1.0); CALCIUM 9.2 mg/dL (8.5-10.3); CREATININE 1.1 mg/dL (0.6-1.2); TOTAL PROTEIN 6.8 g/dL (6.7-8.2)
--- NOTE | 2020-11-15 09:57 | XRAY Report ---
PROCEDURE: Chest 1 View X-Ray INDICATIONS: Chest pain TECHNIQUE: One view of the chest was acquired. COMPARISON: 09/04/2019 and chest radiographs FINDINGS: Surgical changes and devices: Median sternotomy changes and left atrial appendage occlusion device ag ain noted along with cholecystectomy clips. Lungs and pleura: No pleural effusions or pneumothorax. Lungs are clear. Mediastinum: Mediastinal contours appear normal. Heart size is normal. Bones and chest wall: No suspicious bony lesions. Overlying soft tissues appear unremarkable. IMPRESSION: No acute cardiopulmonary process demonstrated radiographically. Reviewed by: Maury Andino MD on 11/15/2020 9:55 AM [facility] Approved by: Maury Andino MD on 11/15/2020 9:55 AM [facility] Station ID: [id number]
[2020-11-15] MEDS ORDERED: SODIUM CHLORIDE 0.9% 1,000 ML IV STA (10:03)
[2020-11-15] MEDS ORDERED: INSULIN REGULAR HUMAN 100 UNIT/1 ML 10 ML MDV IVP STA (10:03)
[2020-11-15] MEDS ORDERED: KETOROLAC 30 MG/ML VIAL IVP STA (10:23)
[2020-11-15 13:04] VITALS: BP 136/89
--- NOTE | 2020-11-15 13:12 | Ultrasound Report ---
PROCEDURE: Duplex Ext Veins Left INDICATIONS: asymmetric swelling TECHNIQUE: Real-time imaging, as well as color and pulse Doppler interrogation, were performed of the left lower extremity deep veins from the inguinal ligament to the popliteal fossa. COMPARISON: None. FINDINGS: The deep veins are normally compressible, and free of intraluminal thrombus. Color and pu lse Doppler demonstrate normal phasic intraluminal flow. There is normal augmentation response to di stal compression maneuver. IMPRESSION: No evidence of deep vein thrombosis involving the left lower extremity. Reviewed by: Nithya Mcduffie MD, PhD on 11/15/2020 12:11 PM [facility] Approved by: Nithya Mcduffie MD, PhD on 11/15/2020 12:11 PM [facility] Station ID: [id number]
== END 2020-11-15 13:05 | disposition home or self-care (01) ==
LOC: ED 09:12
DX: E86.0 Dehydration (principal); R07.89 Other chest pain; E11.65 Type 2 diabetes mellitus with hyperglycemia; Z79.4 Long term (current) use of insulin; R06.82 Tachypnea, not elsewhere classified; I25.10 Atherosclerotic heart disease of native coronary artery without angina pectoris; I10 Essential (primary) hypertension; Z95.5 Presence of coronary angioplasty implant and graft; D58.9 Hereditary hemolytic anemia, unspecified; Z79.82 Long term (current) use of aspirin
CPT/HCPCS: 36415; 80053; 83690; 83880; 84484; 85025; 93005; 96361; 96374; 99284

== ENCOUNTER 2020-11-24 08:00 | Outpatient (CLI) | payer MEDICARE, OTHER ==
[2020-11-24 14:07] LABS: ALT ALANINE AMINOTRANSFERASE 35 IU/L (10-60); AST ASPARTATE AMINOTRANSFERASE 33 IU/L (10-42); BUN - BLOOD UREA NITROGEN 12 mg/dL (6-20); CALCIUM 9.5 mg/dL (8.5-10.3); CARBON DIOXIDE - CO2 27 mmol/L (21-32); CHLORIDE 96 mmol/L (101-111); CHOL/HDL RATIO 3.9 (<5.0); CHOLESTEROL 141 mg/dL; CK- CREATINE KINASE 91 IU/L (22-269); CREATININE 1.1 mg/dL (0.6-1.2); GLUCOSE 241 mg/dL (70-100); HDL CHOLESTEROL 36 mg/dL; LDL CHOLESTEROL,CALCULATED 50 mg/dL; LDL CHOLESTEROL,DIRECT 64 mg/dL; LDL/HDL RATIO 1.4 (<3.6); VLDL CHOLESTEROL 55 mg/dL
== END 2020-11-24 23:59 ==
LOC: LAB.WCP 08:00
PROVIDERS: ATTEND Family Medicine
DX: R10.9 Unspecified abdominal pain (principal); E78.5 Hyperlipidemia, unspecified; I73.9 Peripheral vascular disease, unspecified; I48.0 Paroxysmal atrial fibrillation; I10 Essential (primary) hypertension
CPT/HCPCS: 36415; 80048; 80061; 82550; 82565; 83721; 84450; 84460

== ENCOUNTER 2021-01-27 03:53 | Outpatient (CLI) | payer MEDICARE, OTHER | END 2021-01-27 03:54 | disposition short-term general hospital (02) | LOC: EMS 03:53 | DX: R07.9 Chest pain, unspecified (principal); R06.09 Other forms of dyspnea | CPT/HCPCS: A0425; A0427 ==

== ENCOUNTER 2021-02-13 07:14 | Outpatient (CLI) | payer MEDICARE, OTHER ==
[2021-02-13 14:07] LABS: CALCIUM 8.5 mg/dL (8.5-10.3); CREATININE 0.9 mg/dL (0.6-1.2); POTASSIUM 4.1 mmol/L (3.5-5.0)
[2021-02-13 14:18] LABS: ESTIMATED AVERAGE GLUCOSE 174 mg/dL (70-100); HEMOGLOBIN A1c% 7.7 % (4.27-6.07)
== END 2021-02-13 23:59 | disposition home or self-care (01) ==
LOC: LAB.WCP 07:14
PROVIDERS: ATTEND Internal Medicine
DX: E11.42 Type 2 diabetes mellitus with diabetic polyneuropathy (principal)
CPT/HCPCS: 36415; 80048; 83036

== ENCOUNTER 2021-02-20 10:32 | Outpatient (CLI) | payer MEDICARE, OTHER ==
--- NOTE | 2021-02-20 17:20 | XRAY Report ---
PROCEDURE: Ribs 3 View BILAT INDICATIONS: CHEST WALL PAIN,ACUTE TECHNIQUE: 3 views of the bilateral ribs were acquired. COMPARISON: None FINDINGS: Surgical changes and devices: Median sternotomy wires. Cholecystectomy clips. Right humeral head sutu re anchors. Bones and chest wall: No fractures or dislocations. No suspicious bony lesions. Overlying soft tis sues appear unremarkable. Lungs and pleura: The visualized lung appears clear. No pleural effusions or pneumothorax are visib le. IMPRESSION: No displaced rib fractures. If there is continued concern for chest pathology, consider CT scan of th e chest for further evaluation. Reviewed by: Nithya Mcduffie MD, PhD on 02/20/2021 5:19 PM PDT Approved by: Nithya Mcduffie MD, PhD on 02/20/2021 5:19 PM PDT Station ID: [id number]
== END 2021-02-20 10:33 | disposition home or self-care (01) ==
LOC: DI 10:32
PROVIDERS: ATTEND Internal Medicine
DX: R07.89 Other chest pain (principal); R07.81 Pleurodynia; Z95.1 Presence of aortocoronary bypass graft

== ENCOUNTER 2021-05-19 08:00 | Outpatient (CLI) | payer MEDICARE, OTHER ==
[2021-05-19 12:40] LABS: POTASSIUM 4.3 mmol/L (3.5-5.0)
[2021-05-19 12:42] LABS: ESTIMATED AVERAGE GLUCOSE 200 mg/dL (70-100); HEMOGLOBIN A1c% 8.6 % (4.27-6.07)
== END 2021-05-19 23:59 | disposition home or self-care (01) ==
LOC: LAB.WCP 08:00
PROVIDERS: ATTEND Internal Medicine
DX: E11.42 Type 2 diabetes mellitus with diabetic polyneuropathy (principal)
CPT/HCPCS: 36415; 80048; 83036

== ENCOUNTER 2021-05-25 08:00 | Outpatient (CLI) | payer MEDICARE, OTHER ==
[2021-05-25 17:45] LABS: BILIRUBIN,URINE NEGATIVE (NEGATIVE); GLUCOSE, URINE (UA) >=1000 mg/dL (NEGATIVE); KETONES,URINE (UA) NEGATIVE (NEGATIVE); LEUKOCYTE ESTERASE, URINE NEGATIVE (NEGATIVE); NITRITE,URINE NEGATIVE (NEGATIVE); OCCULT BLOOD,URINE NEGATIVE (NEGATIVE); PROTEIN,URINE NEGATIVE (NEGATIVE); UROBILINOGEN,URINE 0.2 (NORMAL) E.U./dL (NORMAL)
[2021-05-25 17:51] LABS: BASOPHILS # (AUTO) 0.1 10^3/uL (0.0-0.1); BASOPHILS % (AUTO) 0.9 %; EOSINOPHILS # (AUTO) 0.3 10^3/uL (0.0-0.7); EOSINOPHILS % (AUTO) 4.4 %; HCT - HEMATOCRIT 44.9 % (42.0-52.0); HGB - HEMOGLOBIN 15.8 g/dL (14.0-18.0); LYMPHOCYTES # (AUTO) 0.8 10^3/uL (1.5-3.5); LYMPHOCYTES % (AUTO) 12.3 %; MEAN CORPUSCULAR HEMOGLOBIN 32.1 pg (27.0-31.0); MEAN CORPUSCULAR HGB CONC 35.2 g/dL (32.0-36.0); MEAN CORPUSCULAR VOLUME 91.3 fL (80.0-94.0); MEAN PLATELET VOLUME 10.6 fL (7.4-11.4); MONOCYTES # (AUTO) 0.8 10^3/uL (0.0-1.0); MONOCYTES % (AUTO) 11.7 %; NEUTROPHILS # (AUTO) 4.7 10^3/uL (1.5-6.6); NEUTROPHILS % (AUTO) 70.4 %; PLT - PLATELET COUNT 126 10^3/uL (130-450); RED BLOOD COUNT 4.92 10^6/uL (4.70-6.10); RED CELL DISTRIBUTION WIDTH 11.9 % (12.0-15.0); WHITE BLOOD COUNT 6.7 x10^3/uL (4.8-10.8)
[2021-05-25 17:52] LABS: CLARITY,URINE CLEAR (CLEAR)
[2021-05-25 18:26] LABS: ALBUMIN 4.5 g/dL (3.2-5.5); ALBUMIN/GLOBULIN RATIO 2.1 (1.0-2.2); BILIRUBIN,TOTAL 0.9 mg/dL (0.2-1.0); CALCIUM 8.8 mg/dL (8.5-10.3); POTASSIUM 4.5 mmol/L (3.5-5.0); TOTAL PROTEIN 6.6 g/dL (6.7-8.2)
[2021-05-25 18:29] LABS: FERRITIN 401.7 ng/mL (23.9-336.2)
[2021-05-25 18:34] LABS: BACTERIA,URINE Rare /HPF (None Seen); RBC,URINE None Seen /HPF (0-5); SQUAMOUS EPITHELIAL CELL,UR NONE SEEN (<= Few); WBC,URINE 0-3 /HPF (0-3)
== END 2021-05-25 23:59 | disposition home or self-care (01) ==
LOC: LAB.WCP 08:00
PROVIDERS: ATTEND Internal Medicine
DX: D59.10 Autoimmune hemolytic anemia, unspecified (principal); E11.42 Type 2 diabetes mellitus with diabetic polyneuropathy
CPT/HCPCS: 36415; 80053; 81001; 82607; 82728; 82746; 83010; 83540; 83615; 84466; 85025; 87086

== ENCOUNTER 2021-08-22 07:16 | Outpatient (CLI) | payer MEDICARE, OTHER ==
[2021-08-22 12:17] LABS: BASOPHILS # (AUTO) 0.1 10^3/uL (0.0-0.1); BASOPHILS % (AUTO) 1.5 %; EOSINOPHILS # (AUTO) 0.7 10^3/uL (0.0-0.7); EOSINOPHILS % (AUTO) 9.6 %; HCT - HEMATOCRIT 47.2 % (42.0-52.0); HGB - HEMOGLOBIN 16.1 g/dL (14.0-18.0); LYMPHOCYTES # (AUTO) 1.1 10^3/uL (1.5-3.5); LYMPHOCYTES % (AUTO) 15.6 %; MEAN CORPUSCULAR HEMOGLOBIN 31.7 pg (27.0-31.0); MEAN CORPUSCULAR HGB CONC 34.1 g/dL (32.0-36.0); MEAN CORPUSCULAR VOLUME 92.9 fL (80.0-94.0); MEAN PLATELET VOLUME 10.5 fL (7.4-11.4); MONOCYTES # (AUTO) 0.8 10^3/uL (0.0-1.0); MONOCYTES % (AUTO) 11.7 %; NEUTROPHILS # (AUTO) 4.2 10^3/uL (1.5-6.6); NEUTROPHILS % (AUTO) 61.2 %; PLT - PLATELET COUNT 166 10^3/uL (130-450); RED BLOOD COUNT 5.08 10^6/uL (4.70-6.10); RED CELL DISTRIBUTION WIDTH 12.4 % (12.0-15.0); WHITE BLOOD COUNT 6.8 x10^3/uL (4.8-10.8)
[2021-08-22 12:47] LABS: ALBUMIN 4.5 g/dL (3.2-5.5); ALBUMIN/GLOBULIN RATIO 1.8 (1.0-2.2); ALKALINE PHOSPHATASE 104 IU/L (42-121); ALT ALANINE AMINOTRANSFERASE 29 IU/L (10-60); AST ASPARTATE AMINOTRANSFERASE 22 IU/L (10-42); BUN - BLOOD UREA NITROGEN 15 mg/dL (6-20); CALCIUM 9.2 mg/dL (8.5-10.3); CARBON DIOXIDE - CO2 28 mmol/L (21-32); CHLORIDE 99 mmol/L (101-111); CHOL/HDL RATIO 4.2 (<5.0); CHOLESTEROL 146 mg/dL; CREATININE 1.1 mg/dL (0.6-1.2); GFR - MDRD 66 (>89); GLUCOSE 235 mg/dL (70-100); HDL CHOLESTEROL 35 mg/dL; LDL CHOLESTEROL,CALCULATED 58 mg/dL; LDL/HDL RATIO 1.7 (<3.6); POTASSIUM 4.1 mmol/L (3.5-5.0); SODIUM 136 mmol/L (135-145); TRIGLYCERIDES 265 mg/dL; VLDL CHOLESTEROL 53 mg/dL
[2021-08-22 12:59] LABS: THYROID STIMULATING HORMONE 2.13 uIU/mL (0.34-5.60)
[2021-08-22 13:18] LABS: ESTIMATED AVERAGE GLUCOSE 154 mg/dL (70-100)
== END 2021-08-22 07:17 | disposition home or self-care (01) ==
LOC: LAB.N 07:16
PROVIDERS: ATTEND Internal Medicine
DX: I10 Essential (primary) hypertension (principal); I73.9 Peripheral vascular disease, unspecified; I48.0 Paroxysmal atrial fibrillation; F32.A Depression, unspecified; E78.5 Hyperlipidemia, unspecified; N40.1 Benign prostatic hyperplasia with lower urinary tract symptoms; Z12.5 Encounter for screening for malignant neoplasm of prostate; E11.42 Type 2 diabetes mellitus with diabetic polyneuropathy
CPT/HCPCS: 80053; 80061; 83036; 84443; 85025; G0103; 83721; 84153

== ENCOUNTER 2022-01-26 12:06 | Outpatient (CLI) | payer MEDICARE, OTHER | END 2022-01-26 23:59 | disposition home or self-care (01) | LOC: LAB.R 12:06 | PROVIDERS: ATTEND Internal Medicine | DX: Z01.812 Encounter for preprocedural laboratory examination (principal) | CPT/HCPCS: 87640 ==

== ENCOUNTER 2022-02-27 23:25 | Outpatient (CLI) | payer MEDICARE, OTHER | END 2022-02-27 23:26 | disposition short-term general hospital (02) | LOC: EMS 23:25 | DX: R07.9 Chest pain, unspecified (principal); R00.2 Palpitations; R00.0 Tachycardia, unspecified; R42 Dizziness and giddiness | CPT/HCPCS: A0425; A0427 ==

== ENCOUNTER 2022-04-14 22:48 | Outpatient (CLI) | payer MEDICARE, OTHER | END 2022-04-14 23:59 | disposition short-term general hospital (02) | LOC: EMS 22:48 | DX: R07.89 Other chest pain (principal); R06.02 Shortness of breath; R68.84 Jaw pain | CPT/HCPCS: A0425; A0427 ==

== ENCOUNTER 2022-07-12 08:32 | Emergency (ER) | payer MEDICARE, OTHER ==
--- NOTE | 2022-07-12 08:59 | ED Physician Documentation ---
PD HPI CHEST PAIN - Stated complaint Stated Complaint: CHEST PX/SOA - Chief complaint Chief Complaint: Cardiac - History obtained from History obtained from: Patient - History of Present Illness Timing - onset: Yesterday Timing - onset during: Light activity (he was walking up flight of stairs and had onset of chest pressure/tightness with some dyspnea. A flight of stairs is n ot unusual for him so this was not stressful per se. The tightness has continued into today.) Timing - details: Abrupt onset, Still present, Waxing and waning (unrelated to activity, but some related to position. No pain with breathing.) Quality: Tightness Location: Substernal, Left chest Radiation: Neck. No: Jaw, Left upper extremity Improved by: No: Rest Worsened by: Position (lying flat in bed was worse). No: Exertion, Inspiration, Movement, Palpation Associated symptoms: Shortness of air, Other (he has noted mild tachycardia at times the past several days. Has [email or web address] that records short rhythm strips and shows me the recent strips, that have mild sinus tachycardia 100-110. No atrial fib.). No: Nausea, Feeling faint / dizzy, Palpitations Similar symptoms before: Diagnosis (has had heart problems with angina and NC. Has stents.) Recently seen: Not recently seen Review of Systems Constitutional: denies: Fever, Chills Nose: denies: Rhinorrhea / runny nose, Congestion Throat: denies: Sore throat Cardiac: reports: Chest pain / pressure. denies: Palpitations, Pedal edema, Calf pain Respiratory: denies: Dyspnea, Cough PD PAST MEDICAL HISTORY - Past Medical History Cardiovascular: Hypertension, High cholesterol, Coronary artery disease, Angina, NC, Arrhythmia Respiratory: None, Pneumonia Endocrine/Autoimmune: Type 2 diabetes GI: GERD, GI bleed, Ulcers : None HEENT: None Psych: Depression Musculoskeletal: Chronic back pain Derm: None - Past Surgical History Past Surgical History: Yes General: Cholecystectomy Cardiovascular: Coronary stent, Cardiac catheterization, Angioplasty - Present Medications Home Medications: Ambulatory Orders Medication Instructions Recorded Confirmed Atorvastatin [Lipitor] 80 mg PO DAILY 11/24/15 04/18/20 Pantoprazole [Protonix] 40 mg PO BIDAC 02/13/16 04/18/20 Aspirin [Adult Low Dose Aspirin EC] 81 mg PO DAILY 02/15/16 04/18/20 Insulin Glargine,Hum.rec.anlog 25 units SQ BID 03/05/16 04/18/20 [Lantus] Ferrous Sulfate [Feosol] 325 mg PO DAILY 06/11/16 04/18/20 Insulin Lispro [Humalog] 10 unit SUBQ TID 06/11/16 04/18/20 Cetirizine [ZyrTEC] 10 mg PO DAILY 06/17/16 04/18/20 FLUoxetine [PROzac] 40 mg PO DAILY 06/17/16 04/18/20 Hydrocodone/Acetaminophen 1 tab ORAL PRN PRN 08/02/18 04/18/20 [Hydrocodone-Acetamin 5-325 mg] Metoprolol Tartrate 100 mg PO DAILY 10/06/18 04/18/20 Famotidine [Pepcid AC] 20 mg PO BID 04/06/19 04/18/20 Folic Acid/Vit B Complex and C [Sm 400 mcg PO DAILY 04/06/19 04/18/20 Super Vitamin B Complex Tab] Tamsulosin [Flomax] 0.4 mg PO DAILY 04/06/19 04/18/20 Mesalamine [Pentasa] 4 cap PO BID 04/18/20 04/18/20 - Allergies Allergies/Adverse Reactions: Allergies Allergy/AdvReac Type Severity Reaction Status Date / Time azithromycin AdvReac Unknown Verified 11/15/20 09:17 - Social History Does the pt smoke?: No Smoking Status: Never smoker Does the pt drink ETOH?: No Does the pt have substance abuse?: No - Immunizations Immunizations are current?: Yes - POLST Patient has POLST: No PD ED PE NORMAL - Vitals Vital signs reviewed: Yes - General General: Alert and oriented X 3, No acute distress, Well developed/nourished - HEENT HEENT: Moist mucous membranes, Pharynx benign - Neck Neck: Supple, no meningeal sign, No adenopathy - Cardiac Cardiac: RRR, No murmur - Respiratory Respiratory: No respiratory distress, Clear bilaterally, Other (no chestwall tenderness) - Abdomen Abdomen: Soft, Non tender, Non distended - Derm Derm: Normal color, Warm and dry, No rash - Extremities Extremities: Normal ROM s pain, No edema, No calf tenderness / cord - Neuro Neuro: Alert and oriented X 3, No motor deficit, Normal speech Results - Vitals Vitals: Vital Signs - 24 hr 07/12/22 07/12/22 07/12/22 08:40 08:56 09:14 Temperature 37.0 C Heart Rate 87 98 96 Respiratory 18 16 15 Rate Blood Pressure 192/96 H 152/96 H 155/85 H O2 Saturation 100 99 99 07/12/22 07/12/22 10:00 10:30 Temperature Heart Rate 94 92 Respiratory 15 13 Rate Blood Pressure 141/87 H 142/88 H O2 Saturation 97 97 Oxygen O2 Source [With Activity] Room air O2 Source Room air - EKG (time done) 08:40 Rate: Rate (enter#) (81) Rhythm: NSR (with some PACs) [place]: Normal Intervals: Normal [place] QRS: Normal Ischemia: Normal ST segments. No: ST elevation c/w ischemia, ST depression Compare to prior EKG: Unchanged from prior EKG - Labs Labs: Laboratory Tests 07/12/22 07/12/22 07/12/22 08:50 08:50 08:50 WBC 5.9 RBC 5.18 Hgb 16.2 Hct 46.3 MCV 89.4 MCH 31.3 H MCHC 35.0 RDW 12.3 Plt Count 134 MPV 9.9 Neut # (Auto) 4.0 Lymph # (Auto) 0.9 L [place] # (Auto) 0.6 Eos # (Auto) 0.4 Baso # (Auto) 0.1 Absolute Nucleated RBC 0.00 Nucleated RBC % 0.0 Sodium 135 Potassium 4.1 Chloride 100 L Carbon Dioxide 25 Anion Gap 10.0 BUN 13 Creatinine 1.0 Estimated GFR (MDRD) 74 L Glucose 221 H Calcium 9.1 Magnesium Total Bilirubin 0.9 AST 28 ALT 27 Alkaline Phosphatase 87 Troponin I High Sens 6.3 B-Natriuretic Peptide Total Protein 6.8 Albumin 4.4 Globulin 2.4 Albumin/Globulin Ratio 1.8 Lipase 37 07/12/22 07/12/22 08:50 08:50 WBC RBC Hgb Hct MCV MCH MCHC RDW Plt Count MPV Neut # (Auto) Lymph # (Auto) [place] # (Auto) Eos # (Auto) Baso # (Auto) Absolute Nucleated RBC Nucleated RBC % Sodium Potassium Chloride Carbon Dioxide Anion Gap BUN Creatinine Estimated GFR (MDRD) Glucose Calcium Magnesium 2.5 Total Bilirubin AST ALT Alkaline Phosphatase Troponin I High Sens B-Natriuretic Peptide 41 Total Protein Albumin Globulin Albumin/Globulin Ratio Lipase - Rads (name of study) chest xray Radiology: Prelim report reviewed (no acute process), See rad report PD MEDICAL DECISION MAKING - ED course Complexity details: reviewed old records, reviewed results, considered differential (chest tightness since yesterday. ECG and Trop are normal. Given the duration of time since pain onset, a very normal troponin is able to exclude ACS/NC. ), d/w patient Departure - Departure Disposition: Home, Self Care Clinical Impression: Chest tightness, Dyspnea Condition: Stable Record reviewed to determine appropriate education?: Yes Follow-Up: Regino Erazo MD [Primary Care Provider] - Comments: Your chest x-ray, blood tests including blood count, chemistry panel, troponin and BNP are all normal as is your chest x-ray. No signs of heart muscle injury/heart attack, heart failure, pneumonia, fluid in the lungs, anemia, electrolyte problems. Your chest tightness and trouble breathing could be respiratory from a mild infection or inflammation. Consideration could be an equivalent of angina. Contact your personal care aide later today and see if they want to schedule follow-up or add any medications. Discharge Date/Time: 07/12/22 10:43
--- NOTE | 2022-07-12 09:17 | XRAY Report ---
PROCEDURE: Chest 1 View X-Ray INDICATIONS: Chest pain TECHNIQUE: One view of the chest was acquired. COMPARISON: 11/15/2020 FINDINGS: Surgical changes and devices: Median sternotomy wires and left atrial occluder device. Bone anchors in the right humeral head. Lungs and pleura: Chronically low lung volumes with asymmetric right hemidiaphragm elevation. No acu te consolidations, effusion, or pneumothorax. Mediastinum: Mediastinal contours appear normal. Heart size is normal. Bones and chest wall: No suspicious bony lesions. Overlying soft tissues appear unremarkable. IMPRESSION: No acute cardiopulmonary disease. Stable compared to the prior study. Reviewed by: Shameka Joshua MD on 07/12/2022 9:16 AM PDT Approved by: Shameka Joshua MD on 07/12/2022 9:16 AM PDT Station ID: [id number]
[2022-07-12 09:18] LABS: BASOPHILS # (AUTO) 0.1 10^3/uL (0.0-0.1); EOSINOPHILS # (AUTO) 0.4 10^3/uL (0.0-0.7); EOSINOPHILS % (AUTO) 7.1 %; HCT - HEMATOCRIT 46.3 % (42.0-52.0); HGB - HEMOGLOBIN 16.2 g/dL (14.0-18.0); LYMPHOCYTES # (AUTO) 0.9 10^3/uL (1.5-3.5); LYMPHOCYTES % (AUTO) 15.2 %; MEAN CORPUSCULAR HEMOGLOBIN 31.3 pg (27.0-31.0); MEAN CORPUSCULAR VOLUME 89.4 fL (80.0-94.0); MEAN PLATELET VOLUME 9.9 fL (7.4-11.4); MONOCYTES # (AUTO) 0.6 10^3/uL (0.0-1.0); MONOCYTES % (AUTO) 9.3 %; NEUTROPHILS % (AUTO) 67.1 %; PLT - PLATELET COUNT 134 10^3/uL (130-450); RED BLOOD COUNT 5.18 10^6/uL (4.70-6.10); RED CELL DISTRIBUTION WIDTH 12.3 % (12.0-15.0); WHITE BLOOD COUNT 5.9 x10^3/uL (4.8-10.8)
[2022-07-12 09:36] LABS: ALBUMIN 4.4 g/dL (3.2-5.5); ALBUMIN/GLOBULIN RATIO 1.8 (1.0-2.2); BILIRUBIN,TOTAL 0.9 mg/dL (0.2-1.0); CALCIUM 9.1 mg/dL (8.5-10.3); POTASSIUM 4.1 mmol/L (3.5-5.0); TOTAL PROTEIN 6.8 g/dL (6.7-8.2)
[2022-07-12 10:43] VITALS: BP 142/88
== END 2022-07-12 10:43 | disposition home or self-care (01) ==
LOC: ED 08:32
DX: R07.89 Other chest pain (principal); R06.09 Other forms of dyspnea; I10 Essential (primary) hypertension; E11.9 Type 2 diabetes mellitus without complications; Z79.4 Long term (current) use of insulin
CPT/HCPCS: 36415; 80053; 83690; 83735; 83880; 84484; 85025; 93005; 99284

== ENCOUNTER 2023-01-14 07:06 | Outpatient (CLI) | payer MEDICARE, OTHER ==
[2023-01-14 13:00] LABS: BASOPHILS # (AUTO) 0.1 10^3/uL (0.0-0.1); BASOPHILS % (AUTO) 1.1 %; EOSINOPHILS # (AUTO) 0.3 10^3/uL (0.0-0.7); EOSINOPHILS % (AUTO) 5.4 %; HCT - HEMATOCRIT 48.1 % (42.0-52.0); HGB - HEMOGLOBIN 16.2 g/dL (14.0-18.0); LYMPHOCYTES % (AUTO) 15.7 %; MEAN CORPUSCULAR HEMOGLOBIN 31.4 pg (27.0-31.0); MEAN CORPUSCULAR HGB CONC 33.7 g/dL (32.0-36.0); MEAN CORPUSCULAR VOLUME 93.2 fL (80.0-94.0); MEAN PLATELET VOLUME 10.2 fL (7.4-11.4); MONOCYTES # (AUTO) 0.8 10^3/uL (0.0-1.0); MONOCYTES % (AUTO) 12.2 %; NEUTROPHILS % (AUTO) 65.3 %; PLT - PLATELET COUNT 152 10^3/uL (130-450); RED BLOOD COUNT 5.16 10^6/uL (4.70-6.10); RED CELL DISTRIBUTION WIDTH 12.1 % (12.0-15.0); WHITE BLOOD COUNT 6.1 x10^3/uL (4.8-10.8)
[2023-01-14 13:25] LABS: ALBUMIN 4.4 g/dL (3.2-5.5); ALKALINE PHOSPHATASE 129 IU/L (42-121); ALT ALANINE AMINOTRANSFERASE 24 IU/L (10-60); AST ASPARTATE AMINOTRANSFERASE 19 IU/L (10-42); BILIRUBIN,TOTAL 0.7 mg/dL (0.2-1.0); BUN - BLOOD UREA NITROGEN 12 mg/dL (6-20); CALCIUM 8.5 mg/dL (8.5-10.3); CARBON DIOXIDE - CO2 27 mmol/L (21-32); CHLORIDE 99 mmol/L (101-111); CHOL/HDL RATIO 3.3 (<5.0); CHOLESTEROL 120 mg/dL; CREATININE 1.1 mg/dL (0.6-1.2); GFR - MDRD 66 (>89); GLUCOSE 243 mg/dL (70-100); HDL CHOLESTEROL 36 mg/dL; LDL CHOLESTEROL,CALCULATED 44 mg/dL; LDL/HDL RATIO 1.2 (<3.6); POTASSIUM 4.5 mmol/L (3.5-5.0); SODIUM 132 mmol/L (135-145); TOTAL PROTEIN 6.6 g/dL (6.7-8.2); TRIGLYCERIDES 199 mg/dL; VLDL CHOLESTEROL 40 mg/dL
[2023-01-14 13:39] LABS: THYROID STIMULATING HORMONE 2.31 uIU/mL (0.34-5.60)
[2023-01-14 13:44] LABS: CREATININE,URINE 120.2 mg/dL; MICROALBUM/CREATININE RATIO,UR 2.5 ug/mg (<30.0); MICROALBUMIN,URINE 0.3 mg/dL (0-300.0)
[2023-01-14 14:47] LABS: ESTIMATED AVERAGE GLUCOSE 146 mg/dL (70-100); HEMOGLOBIN A1c% 6.7 % (4.27-6.07)
== END 2023-01-14 07:07 | disposition home or self-care (01) ==
LOC: LAB.N 07:06
PROVIDERS: ATTEND Internal Medicine
DX: E11.42 Type 2 diabetes mellitus with diabetic polyneuropathy (principal); E78.5 Hyperlipidemia, unspecified; N40.1 Benign prostatic hyperplasia with lower urinary tract symptoms; I48.0 Paroxysmal atrial fibrillation; K50.90 Crohn's disease, unspecified, without complications
CPT/HCPCS: 36415; 80053; 80061; 82043; 82570; 83036; 83721; 84153; 84443; 85025

== ENCOUNTER 2023-03-25 07:30 | Outpatient (CLI) | payer MEDICARE, OTHER ==
--- NOTE | 2023-03-25 12:43 | XRAY Report ---
PROCEDURE: Chest 2 View X-Ray INDICATIONS: URI TECHNIQUE: 2 views of the chest were acquired. COMPARISON: 07/12/2022 FINDINGS: Surgical changes and devices: Sternotomy wires. Atrial occluder device. Right humeral head hardware. Lungs and pleura: Low lung volumes. No dense consolidation or pleural effusion. Right hemidiaphragm eventration. Mediastinum: Mediastinal contours appear normal. Heart size is normal. Bones and chest wall: No suspicious bony lesions. Overlying soft tissues appear unremarkable. IMPRESSION: No dense airspace disease. No pleural effusions. Low lung volumes. Reviewed by: Kenny Vaughan MD on 03/25/2023 12:42 PM PDT Approved by: Kenny Vaughan MD on 03/25/2023 12:42 PM PDT Station ID: [id number]
== END 2023-03-25 07:45 | disposition home or self-care (01) ==
LOC: DI.N 07:30
PROVIDERS: ATTEND Physician Assistant
DX: J06.9 Acute upper respiratory infection, unspecified (principal); Z20.822 Contact with and (suspected) exposure to COVID-19

== ENCOUNTER 2023-03-25 08:00 | Outpatient (CLI) | payer MEDICARE, OTHER | END 2023-03-25 23:59 | disposition home or self-care (01) | LOC: LAB.N 08:00 | PROVIDERS: ATTEND Physician Assistant | DX: J06.9 Acute upper respiratory infection, unspecified (principal); Z20.822 Contact with and (suspected) exposure to COVID-19 ==

== ENCOUNTER 2023-04-02 11:49 | Emergency (ER) | payer MEDICARE, OTHER ==
[2023-04-02 12:03] VITALS: BP 141/77
--- NOTE | 2023-04-02 12:12 | ED Physician Documentation ---
History of Present Illness - Stated complaint Stated Complaint: LT FOOT PX,SENT FROM PCP - Chief complaint Chief Complaint: Ext Problem - Additonal information Additional information: 72-year-old male presents the emergency department from his podiatry office requesting evaluation of a left great toe infection. He is a diabetic. He did develop a shallow ulceration on the lateral side of the great toe. Since then he has developed some generalized toe swelling and erythema. No fevers. His track rider wanted him to get evaluated to see if he had osteomyelitis. Patient is an insulin-dependent diabetic. Typically has fasting sugars between 130 and 150. He did complete a course of Bactrim about 1 week ago for an upper respiratory infection. Review of Systems Constitutional: denies: Fever, Chills Skin: reports: Lesions, Other (Shallow ulceration left great toe lateral side) Musculoskeletal: reports: Joint pain (Left great toe) PD PAST MEDICAL HISTORY - Past Medical History Cardiovascular: Hypertension, High cholesterol, Coronary artery disease, Angina, [place], Arrhythmia Respiratory: None, Pneumonia Endocrine/Autoimmune: Type 2 diabetes GI: GERD, GI bleed, Ulcers : None HEENT: None Psych: Depression Musculoskeletal: Chronic back pain Derm: None - Past Surgical History Past Surgical History: Yes General: Cholecystectomy Cardiovascular: Coronary stent, Cardiac catheterization, Angioplasty - Present Medications Home Medications: Ambulatory Orders Medication Instructions Recorded Confirmed Atorvastatin [Lipitor] 80 mg PO DAILY 11/24/15 04/18/20 Pantoprazole [Protonix] 40 mg PO BIDAC 02/13/16 04/18/20 Aspirin [Adult Low Dose Aspirin EC] 81 mg PO DAILY 02/15/16 04/18/20 Insulin Glargine,Hum.rec.anlog 25 units SQ BID 03/05/16 04/18/20 [Lantus] Ferrous Sulfate [Feosol] 325 mg PO DAILY 06/11/16 04/18/20 Insulin Lispro [Humalog] 10 unit SUBQ TID 06/11/16 04/18/20 Cetirizine [ZyrTEC] 10 mg PO DAILY 06/17/16 04/18/20 FLUoxetine [PROzac] 40 mg PO DAILY 06/17/16 04/18/20 Hydrocodone/Acetaminophen 1 tab ORAL PRN PRN 08/02/18 04/18/20 [Hydrocodone-Acetamin 5-325 mg] Metoprolol Tartrate 100 mg PO DAILY 10/06/18 04/18/20 Famotidine [Pepcid AC] 20 mg PO BID 04/06/19 04/18/20 Folic Acid/Vit B Complex and C [Sm 400 mcg PO DAILY 04/06/19 04/18/20 Super Vitamin B Complex Tab] Tamsulosin [Flomax] 0.4 mg PO DAILY 04/06/19 04/18/20 Mesalamine [Pentasa] 4 cap PO BID 04/18/20 04/18/20 Mupirocin 2% Oint [Bactroban 2% 1 applic TOP BID #22 gm 04/02/23 Oint] cephALEXin [Keflex] 500 mg PO Q6H #28 cap 04/02/23 - Allergies Allergies/Adverse Reactions: Allergies Allergy/AdvReac Type Severity Reaction Status Date / Time No Known Drug Allergies Allergy Verified 04/02/23 12:01 - Social History Does the pt smoke?: No Smoking Status: Never smoker Does the pt drink ETOH?: No Does the pt have substance abuse?: No - Immunizations Immunizations are current?: Yes - POLST Patient has POLST: No PD ED PE EXPANDED - Extremities Extremities: Left foot (Left great toe is generally swollen and erythematous. Very shallow ulceration measuring about 3 mm in diameter without drainage is noted. Tenderness elicited with palpation of the entire toe. 2+ DP pulse.) Results - Vitals Vitals: Vital Signs - 24 hr 04/02/23 11:56 Temperature 36.0 C L Heart Rate 91 Respiratory 20 Rate Blood Pressure 141/77 H O2 Saturation 97 Oxygen O2 Source [With Activity] Room air O2 Source Room air - Rads (name of study) left toes xr Relevant Findings:: EMP independent interpretation of test PD Medical Decision Making - ED course Complexity details: reviewed results, re-evaluated patient, considered differential, d/w patient ED course: Well-appearing 72-year-old male who is an insulin-dependent diabetic presents the emergency department for evaluation of a left great toe infection. He is being followed by a track rider. About 1 week ago he developed a shallow ulceration on the lateral mid great toe. Over time he has developed subsequent generalized erythema. He was seen at his podiatry office today and they recom mended ER evaluation to rule out osteomyelitis. On exam the toe is erythematous consistent with cellulitis. There is a very shallow 3 mm ulceration that is not amenable to debridement nor is there drainage thus no culture was obtained. An x-ray as interpreted by myself shows no secondary findings to suggest osteomyelitis as such however I will treat the patient with Keflex for the treatment of cellulitis. He is advised to follow closely with his track rider. I recommended that if the track rider did not feel comfortable with debridement or wound management moving forward a referral to our wound therapy department could be obtained. Otherwise the usual emergent return precautions for concerns of worsening infection were discussed Departure - Departure Disposition: 01 Home, Self Care Clinical Impression: Cellulitis of left toe, History of insulin dependent diabetes mellitus, Diabetic ulcer of left great toe Condition: Stable Record reviewed to determine appropriate education?: Yes Prescriptions: Mupirocin 2% Oint [Bactroban 2% Oint] 1 applic TOP BID #22 gm cephALEXin [Keflex] 500 mg PO Q6H #28 cap Comments: Rufino gilmore were sent today to the emergency department by your track rider for evaluation of your left great toe infection. You do have a very shallow ulcer that does not yet look ready to be debrided however you do have infection of the toe. In order to treat this I am starting you on Keflex and antibiotic you will take 4 times a day for the next week. I would like you to apply the mupirocin ointment to your ulcer. It is very important that you follow closely with your track rider. If your track rider feels that the wound is beginning to develop in a way that he/she is not comfortable managing, he can make a referral to our wound therapy department. Unfortunately that referral must come from your primary care doctor or the track rider and not through the emergency department The x-ray of your toe today however does not show any findings of Osteomyelitis or infection deeper into the bone. Return to the ER if you find you are having worsening symptoms, develop any fevers or have red streaking on your leg. You can continue your usual Medications otherwise
--- NOTE | 2023-04-02 13:16 | XRAY Report ---
PROCEDURE: Toe(s) LT INDICATIONS: left great toe ulcer; ? osteo TECHNIQUE: AP view of the foot and 2 views of the great toe. COMPARISON: None. FINDINGS: Bones: No acute fractures or dislocations. No suspicious bony lesions. No focal cortical erosion o r osseous destruction identified. Degenerative changes are seen in the toes and 1st metatarsophalange al joint. Soft tissues: No suspicious soft tissue densities. Mild soft tissue edema in the great toe. IMPRESSION: No radiographic signs of osteomyelitis. If there is continued clinical concern, MRI could be performe d for further evaluation. Reviewed by: Micheal Huitron MD on 04/02/2023 1:15 PM PDT Approved by: Micheal Huitron MD on 04/02/2023 1:15 PM PDT Station ID: [id number]
== END 2023-04-02 12:47 | disposition home or self-care (01) ==
LOC: ED 11:49
DX: E11.621 Type 2 diabetes mellitus with foot ulcer (principal); L97.529 Non-pressure chronic ulcer of other part of left foot with unspecified severity; I10 Essential (primary) hypertension; E78.00 Pure hypercholesterolemia, unspecified; Z79.4 Long term (current) use of insulin; Z79.899 Other long term (current) drug therapy; Z79.82 Long term (current) use of aspirin
CPT/HCPCS: 73660; 99283; 99284

== ENCOUNTER 2023-06-04 22:21 | Outpatient (CLI) | payer MEDICARE, OTHER | END 2023-06-04 23:59 | disposition critical access hospital (66) | LOC: EMS 22:21 | DX: R07.9 Chest pain, unspecified (principal); M25.512 Pain in left shoulder | CPT/HCPCS: A0425; A0427 ==

== ENCOUNTER 2023-06-04 23:06 | Emergency (ER) | payer MEDICARE, OTHER ==
[2023-06-04 23:26] LABS: BASOPHILS # (AUTO) 0.1 10^3/uL (0.0-0.1); BASOPHILS % (AUTO) 0.8 %; EOSINOPHILS # (AUTO) 0.4 10^3/uL (0.0-0.7); EOSINOPHILS % (AUTO) 5.6 %; HGB - HEMOGLOBIN 15.1 g/dL (14.0-18.0); LYMPHOCYTES # (AUTO) 1.5 10^3/uL (1.5-3.5); LYMPHOCYTES % (AUTO) 21.1 %; MEAN CORPUSCULAR HEMOGLOBIN 30.6 pg (27.0-31.0); MEAN CORPUSCULAR HGB CONC 34.3 g/dL (32.0-36.0); MEAN CORPUSCULAR VOLUME 89.1 fL (80.0-94.0); MEAN PLATELET VOLUME 9.7 fL (7.4-11.4); MONOCYTES # (AUTO) 0.9 10^3/uL (0.0-1.0); NEUTROPHILS # (AUTO) 4.3 10^3/uL (1.5-6.6); NEUTROPHILS % (AUTO) 60.1 %; PLT - PLATELET COUNT 152 10^3/uL (130-450); RED BLOOD COUNT 4.94 10^6/uL (4.70-6.10); RED CELL DISTRIBUTION WIDTH 12.5 % (12.0-15.0); WHITE BLOOD COUNT 7.2 x10^3/uL (4.8-10.8)
[2023-06-04 23:44] LABS: ALBUMIN 3.9 g/dL (3.2-5.5); ALBUMIN/GLOBULIN RATIO 1.8 (1.0-2.2); BILIRUBIN,TOTAL 0.6 mg/dL (0.2-1.0); CALCIUM 8.6 mg/dL (8.5-10.3); TOTAL PROTEIN 6.1 g/dL (6.7-8.2)
[2023-06-04] MEDS ORDERED: MORPHINE 2 MG/ML CARPUJECT IVP STA (23:46)
[2023-06-04 23:51] LABS: TROPONIN I HIGH SENSITIVITY 4.1 ng/L (2.3-19.7)
--- NOTE | 2023-06-05 00:19 | ED Physician Documentation ---
PD HPI CHEST PAIN - Stated complaint Stated Complaint: CHEST PX - Chief complaint Chief Complaint: Cardiac - History obtained from History obtained from: Patient - Additional information Additional information: Patient is a 72-year-old male with a history of coronary artery disease, quadruple bypass in 2019 presenting for evaluation of left-sided chest pain radiating to the left shoulder starting around 9:00 this evening as he was at rest. No associated shortness of air. Denies recent illness. No abdominal symptoms. No dizziness. Patient took aspirin prior to arrival. EMS administered 2 nitroglycerin which she states may have helped a little bit. He reported that the pain seemed to worsen when he was walking to the EMS stretcher. No surgery or immobilization in the last 30 days. Does not currently take a blood thinner. Has a history of atrial fibrillation with prior ablation last year. His wildlife rehabilitator is through [facility] Dr Faustin. Review of Systems Constitutional: denies: Fever Cardiac: reports: Chest pain / pressure. denies: Palpitations Respiratory: denies: Dyspnea, Cough GI: denies: Abdominal Pain, Vomiting Musculoskeletal: denies: Extremity swelling Neurologic: denies: Headache PD PAST MEDICAL HISTORY - Past Medical History Cardiovascular: Hypertension, High cholesterol, Coronary artery disease, Angina, [place], Arrhythmia Respiratory: None, Pneumonia Endocrine/Autoimmune: Type 2 diabetes GI: GERD, GI bleed, Ulcers : None HEENT: None Psych: Depression Musculoskeletal: Chronic back pain Derm: None - Past Surgical History Past Surgical History: Yes General: Cholecystectomy Cardiovascular: Coronary stent, Cardiac catheterization, Angioplasty - Present Medications Home Medications: Ambulatory Orders Medication Instructions Recorded Confirmed Atorvastatin [Lipitor] 80 mg PO DAILY 11/24/15 04/18/20 Pantoprazole [Protonix] 40 mg PO BIDAC 02/13/16 04/18/20 Aspirin [Adult Low Dose Aspirin EC] 81 mg PO DAILY 02/15/16 04/18/20 Insulin Glargine,Hum.rec.anlog 25 units SQ BID 03/05/16 04/18/20 [Lantus] Ferrous Sulfate [Feosol] 325 mg PO DAILY 06/11/16 04/18/20 Insulin Lispro [Humalog] 10 unit SUBQ TID 06/11/16 04/18/20 Cetirizine [ZyrTEC] 10 mg PO DAILY 06/17/16 04/18/20 FLUoxetine [PROzac] 40 mg PO DAILY 06/17/16 04/18/20 Hydrocodone/Acetaminophen 1 tab ORAL PRN PRN 08/02/18 04/18/20 [Hydrocodone-Acetamin 5-325 mg] Metoprolol Tartrate 100 mg PO DAILY 10/06/18 04/18/20 Famotidine [Pepcid AC] 20 mg PO BID 04/06/19 04/18/20 Folic Acid/Vit B Complex and C [Sm 400 mcg PO DAILY 04/06/19 04/18/20 Super Vitamin B Complex Tab] Tamsulosin [Flomax] 0.4 mg PO DAILY 04/06/19 04/18/20 Mesalamine [Pentasa] 4 cap PO BID 04/18/20 04/18/20 Mupirocin 2% Oint [Bactroban 2% 1 applic TOP BID #22 gm 04/02/23 Oint] cephALEXin [Keflex] 500 mg PO Q6H #28 cap 04/02/23 - Allergies Allergies/Adverse Reactions: Allergies Allergy/AdvReac Type Severity Reaction Status Date / Time No Known Drug Allergies Allergy Verified 04/02/23 12:01 - Social History Does the pt smoke?: No Smoking Status: Never smoker Does the pt drink ETOH?: No Does the pt have substance abuse?: No - Immunizations Immunizations are current?: Yes - POLST Patient has POLST: No PD ED PE NORMAL - General General: Alert and oriented X 3, No acute distress, Well developed/nourished - HEENT HEENT: Atraumatic - Neck Neck: Supple, no meningeal sign - Cardiac Cardiac: RRR, No murmur, Strong equal pulses, Other - Respiratory Respiratory: No respiratory distress, Clear bilaterally - Abdomen Abdomen: Soft, Non tender - Derm Derm: Warm and dry - Extremities Extremities: No edema, No calf tenderness / cord - Neuro Neuro: Alert and oriented X 3, No motor deficit, Normal speech Results - Vitals Vitals: Vital Signs - 24 hr 06/04/23 06/05/23 06/05/23 23:15 00:17 01:00 Temperature 35.9 C L Heart Rate 84 98 92 Respiratory 16 20 18 Rate Blood Pressure 123/72 133/81 H 133/74 H O2 Saturation 97 96 95 08/16/23 08/16/23 08/16/23 01:17 02:00 03:00 Temperature Heart Rate 92 86 89 Respiratory 20 20 20 Rate Blood Pressure 133/74 H 135/52 H 100/68 O2 Saturation 95 96 97 06/05/23 06/05/23 04:00 05:00 Temperature Heart Rate 85 88 Respiratory 20 20 Rate Blood Pressure 109/71 118/72 O2 Saturation 95 95 Oxygen O2 Source [] Room air O2 Source Room air - EKG (time done) 2312 EKG releavant findings:: EKG personally interpreted by author of this note. Relevant findings are: 0235 EKG releavant findings:: EKG personally interpreted by author of this note. Relevant findings are: Rate 82, normal sinus rhythm, no STEMI, no change from prior EKG Rate: Rate (enter#) (82) Rhythm: NSR Ischemia: No: ST elevation c/w ischemia Compare to prior EKG: Unchanged from prior EKG - Labs Labs: Laboratory Tests 06/04/23 06/04/23 06/04/23 23:20 23:20 23:20 WBC 7.2 RBC 4.94 Hgb 15.1 Hct 44.0 MCV 89.1 MCH 30.6 MCHC 34.3 RDW 12.5 Plt Count 152 MPV 9.7 Neut # (Auto) 4.3 Lymph # (Auto) 1.5 Blackford # (Auto) 0.9 Eos # (Auto) 0.4 Baso # (Auto) 0.1 Absolute Nucleated RBC 0.00 Nucleated RBC % 0.0 Sodium 134 L Potassium 4.0 Chloride 101 Carbon Dioxide 24 Anion Gap 9.0 BUN 11 Creatinine 1.0 Estimated GFR (MDRD) 73 L Glucose 184 H Calcium 8.6 Total Bilirubin 0.6 AST 20 ALT 22 Alkaline Phosphatase 99 Troponin I High Sens 4.1 B-Natriuretic Peptide 24 Total Protein 6.1 L Albumin 3.9 Globulin 2.2 Albumin/Globulin Ratio 1.8 06/05/23 02:32 WBC RBC Hgb Hct MCV MCH MCHC RDW Plt Count MPV Neut # (Auto) Lymph # (Auto) Blackford # (Auto) Eos # (Auto) Baso # (Auto) Absolute Nucleated RBC Nucleated RBC % Sodium Potassium Chloride Carbon Dioxide Anion Gap BUN Creatinine Estimated GFR (MDRD) Glucose Calcium Total Bilirubin AST ALT Alkaline Phosphatase Troponin I High Sens 3.6 B-Natriuretic Peptide Total Protein Albumin Globulin Albumin/Globulin Ratio PD Medical Decision Making - ED course Complexity details: reviewed results, re-evaluated patient, d/w patient ED course: Patient is a 72-year-old male with a history of coronary artery disease and quadruple bypass presenting for evaluation of left-sided chest pain radiating to the left shoulder. EKG is reviewed and without signs of acute ischemia. Labs including CBC, chemistry, high-sensitivity troponin, BNP were obtained and reviewed without significant findings. Chest x-ray which I reviewed shows no effusion or consolidation. Patient had received aspirin prior to arrival along with nitro. He received additional doses of nitro and morphine with improvement in his symptoms. Repeat EKG and troponin are unchanged. However patient continues to report pain. Heart Score = 5 (1 for history, 2 for age, 2 for risk factors). Doubt pulmonary embolism or dissection as symptoms are not migratory and he does not feel short of air. Although troponins have been negative and there is no ST changes noted on his EKG I do have concerns that he is continuing to report pain especially given his cardiac history. I do feel patient would benefit from consultation with cardiology. I attempted to get recommendations from on-call wildlife rehabilitator for his group. As he continues to have symptoms and we do not have cardiology here I will attempt to transfer to facility with for higher level of care. In the meanwhile I have started him on a nitroglycerin drip and of also started twice daily Lovenox for possible unstable angina. Unfortunately there is a regional bed shortage and no beds are currently available. Patient will be signed out to oncoming provider at shift change. 0335 - D/W Primary Teacher Fruit [employer] [place] [facility] - States she is unable to give formal recommendations as she is not pet adoption counselor for our hospital. Recommends transfer to hospital with cardiology/stress testing/cath if there is a concern in pt with CAD and ongoing pain. Departure - Departure Disposition: 02 Transfer Acute Care Hosp Forms: PCP List
--- NOTE | 2023-06-05 00:30 | XRAY Report ---
PROCEDURE: Chest 1 View X-Ray INDICATIONS: CP TECHNIQUE: One view of the chest was acquired. COMPARISON: Chest x-ray 03/25/2023. FINDINGS: Surgical changes and devices: Postsurgical changes redemonstrated within the mediastinum. Lungs and pleura: No pleural effusions or pneumothorax. Lungs are clear. Mediastinum: Mediastinal contours appear normal. Heart size is normal. Bones and chest wall: No suspicious bony lesions. Overlying soft tissues appear unremarkable. IMPRESSION: No acute cardiopulmonary disease. Reviewed by: Mitchell Christensen MD on 06/05/2023 12:29 AM PDT Approved by: Mitchell Christensen MD on 06/05/2023 12:29 AM PDT Station ID: [id number]
[2023-06-05] MEDS ORDERED: NITROGLYCERIN SL 0.4 MG TABLET SL STA (02:39)
[2023-06-05] MEDS ORDERED: MORPHINE 2 MG/ML CARPUJECT IVP STA ×2 (03:40→09:16)
[2023-06-05] MEDS ORDERED: ENOXAPARIN 120 MG/0.8 ML SYRINGE SUBQ ONE (04:00)
[2023-06-05] MEDS ORDERED: NITROGLYCERIN 50 MG/250 ML 50 MG/250 ML BOTTLE IV STA (04:37)
[2023-06-05] MEDS ORDERED: ENOXAPARIN 60 MG/0.6 ML SYRINGE SUBQ ONE (05:00)
[2023-06-05] MEDS ORDERED: ONDANSETRON 4 MG/2 ML VIAL IVP PRN (05:26)
[2023-06-05] MEDS ORDERED: ACETAMINOPHEN 500 MG TABLET PO PRN (05:26)
[2023-06-05] MEDS ORDERED: PANTOPRAZOLE 40 MG TABLET PO SCH (07:00)
[2023-06-05] MEDS ORDERED: FLUoxetine 10 MG CAPSULE PO SCH (09:00)
[2023-06-05] MEDS ORDERED: METOPROLOL TARTRATE 50 MG TABLET PO SCH (09:00)
[2023-06-05] MEDS ORDERED: ASPIRIN CHEW 81 MG TABLET PO SCH (09:00)
[2023-06-05] MEDS ORDERED: INSULIN REGULAR HUMAN 300 UNIT/3 ML VIAL SUBQ SCH (12:00)
--- NOTE | 2023-06-05 12:40 | ED Physician Documentation ---
ED Addendum - Addendum Addendum: 06/05/23 12:[address] Sullivan awaiting placement for unstable angina. Discussed the case with Dr. Garcia, cardiology at [facility] in [place] who agrees with need for transfer. Discussed the case with Dr. Mullen, hospitalist who accepts. Patient maintained on a nitroglycerin drip at 20. Pain has continued in the emergency department though at a 1 or 2 out of 10. He did receive Lovenox for his unstable angina. Patient will be transferred for further care. COBRA forms completed This document was made in part using voice recognition software. While efforts are made to proofread this document, sound alike and grammatical errors may occur. Departure - Departure Disposition: 02 Transfer Acute Care Hosp Clinical Impression: Unstable angina Condition: Stable Forms: PCP List
[2023-06-05 15:08] VITALS: BP 114/69; O2SAT 96
[2023-06-05] MEDS ORDERED: ENOXAPARIN 120 MG/0.8 ML SYRINGE SUBQ SCH (16:00)
[2023-06-05] MEDS ORDERED: ATORVASTATIN 40 MG TABLET PO SCH (21:00)
== END 2023-06-05 15:27 | disposition short-term general hospital (02) ==
LOC: EDUNIT# → ED 23:06
DX: I20.0 Unstable angina (principal); I10 Essential (primary) hypertension; E11.9 Type 2 diabetes mellitus without complications; Z79.4 Long term (current) use of insulin; Z86.79 Personal history of other diseases of the circulatory system
CPT/HCPCS: 36415; 71045; 80053; 83880; 84484; 85025; 93005; 96372; 96374; 96375; 96376; 99285; A9270; J1650; J1815

== ENCOUNTER 2023-07-02 07:06 | Outpatient (CLI) | payer MEDICARE, OTHER ==
[2023-07-02 12:04] LABS: CALCIUM 9.1 mg/dL (8.5-10.3); POTASSIUM 4.1 mmol/L (3.5-4.5)
[2023-07-02 12:09] LABS: ESTIMATED AVERAGE GLUCOSE 157 mg/dL (70-100); HEMOGLOBIN A1c% 7.1 % (4.27-6.07)
== END 2023-07-02 07:07 | disposition home or self-care (01) ==
LOC: LAB.N 07:06
PROVIDERS: ATTEND Internal Medicine
DX: E11.42 Type 2 diabetes mellitus with diabetic polyneuropathy (principal)
CPT/HCPCS: 36415; 80048; 83036

== ENCOUNTER 2023-09-05 23:31 | Outpatient (CLI) | payer MEDICARE, OTHER | END 2023-09-05 23:32 | disposition short-term general hospital (02) | LOC: EMS 23:31 | DX: R07.9 Chest pain, unspecified (principal); R68.84 Jaw pain; M79.602 Pain in left arm; R20.0 Anesthesia of skin; R11.0 Nausea; R42 Dizziness and giddiness | CPT/HCPCS: A0425; A0427 ==

== ENCOUNTER 2023-12-09 07:11 | Outpatient (CLI) | payer MEDICARE, OTHER ==
[2023-12-09 12:46] LABS: BASOPHILS # (AUTO) 0.1 10^3/uL (0.0-0.1); BASOPHILS % (AUTO) 1.3 %; EOSINOPHILS # (AUTO) 0.5 10^3/uL (0.0-0.7); EOSINOPHILS % (AUTO) 7.4 %; HCT - HEMATOCRIT 47.9 % (42.0-52.0); HGB - HEMOGLOBIN 15.9 g/dL (14.0-18.0); LYMPHOCYTES # (AUTO) 1.2 10^3/uL (1.5-3.5); LYMPHOCYTES % (AUTO) 16.8 %; MEAN CORPUSCULAR HEMOGLOBIN 30.6 pg (27.0-31.0); MEAN CORPUSCULAR HGB CONC 33.2 g/dL (32.0-36.0); MEAN CORPUSCULAR VOLUME 92.1 fL (80.0-94.0); MEAN PLATELET VOLUME 10.2 fL (7.4-11.4); MONOCYTES # (AUTO) 0.8 10^3/uL (0.0-1.0); NEUTROPHILS # (AUTO) 4.5 10^3/uL (1.5-6.6); NEUTROPHILS % (AUTO) 63.1 %; PLT - PLATELET COUNT 170 10^3/uL (130-450); RED CELL DISTRIBUTION WIDTH 12.6 % (12.0-15.0); WHITE BLOOD COUNT 7.2 x10^3/uL (4.8-10.8)
[2023-12-09 13:09] LABS: ALBUMIN 4.4 g/dL (3.2-5.5); ALBUMIN/GLOBULIN RATIO 2.1 (1.0-2.2); ALKALINE PHOSPHATASE 89 IU/L (42-121); ALT ALANINE AMINOTRANSFERASE 16 IU/L (10-60); AST ASPARTATE AMINOTRANSFERASE 15 IU/L (10-42); BILIRUBIN,TOTAL 0.7 mg/dL (0.2-1.0); BUN - BLOOD UREA NITROGEN 11 mg/dL (6-20); CALCIUM 9.3 mg/dL (8.5-10.3); CARBON DIOXIDE - CO2 29 mmol/L (21-32); CHLORIDE 102 mmol/L (101-111); CHOLESTEROL 117 mg/dL; CREATININE 1.2 mg/dL (0.6-1.3); GFR - MDRD 59 (>89); GLUCOSE 152 mg/dL (74-104); HDL CHOLESTEROL 39 mg/dL; LDL CHOLESTEROL,CALCULATED 40 mg/dL; POTASSIUM 4.4 mmol/L (3.5-4.5); SODIUM 138 mmol/L (135-145); TOTAL PROTEIN 6.5 g/dL (6.4-8.9); TRIGLYCERIDES 190 mg/dL (48-352); VLDL CHOLESTEROL 38 mg/dL
[2023-12-09 13:16] LABS: ESTIMATED AVERAGE GLUCOSE 137 mg/dL (70-100); HEMOGLOBIN A1c% 6.4 % (4.27-6.07)
[2023-12-09 13:19] LABS: THYROID STIMULATING HORMONE 2.73 uIU/mL (0.34-5.60)
[2023-12-09 13:49] LABS: CREATININE,URINE 81.1 mg/dL
[2023-12-09 13:50] LABS: MICROALBUMIN,URINE < 0.7 mg/dL
== END 2023-12-09 07:12 | disposition home or self-care (01) ==
LOC: LAB.N 07:11
PROVIDERS: ATTEND Internal Medicine
DX: E11.42 Type 2 diabetes mellitus with diabetic polyneuropathy (principal); E78.5 Hyperlipidemia, unspecified; Z12.5 Encounter for screening for malignant neoplasm of prostate; I10 Essential (primary) hypertension; F32.A Depression, unspecified
CPT/HCPCS: 36415; 80053; 80061; 82043; 82570; 83036; 84443; 85025; G0103; 83721; 84153

== ENCOUNTER 2024-03-04 11:57 | Outpatient (CLI) | payer MEDICARE, OTHER ==
--- NOTE | 2024-03-04 13:29 | XRAY Report ---
PROCEDURE: Tib/Fib RT INDICATIONS: OSTEOMYELITIS, NON-HEALED ULCER RIGHT TIB/FIB TECHNIQUE: 2 views of the tibia and fibula were acquired. COMPARISON: None. FINDINGS: Bones: No acute appearing fracture. Mild deformity is seen in the distal shaft of the fibula and tib ia, with cortical thickening, indicating prior trauma. No definite osseous erosions. Soft tissues: No suspicious soft tissue calcifications. IMPRESSION: Evidence of prior trauma with distal tibial and fibular shaft deformities. No osseous erosions are ev ident on radiography. If there is high concern for further derangement, consider MRI evaluation. Reviewed by: Kenny Vaughan MD on 03/04/2024 1:28 PM PDT Approved by: Kenny Vaughan MD on 03/04/2024 1:28 PM PDT Station ID: [id number]
== END 2024-03-04 11:58 | disposition home or self-care (01) ==
LOC: DI 11:57
PROVIDERS: ATTEND Family Medicine
DX: E11.622 Type 2 diabetes mellitus with other skin ulcer (principal); L97.814 Non-pressure chronic ulcer of other part of right lower leg with necrosis of bone

== ENCOUNTER 2024-04-22 18:17 | Emergency (ER) | payer MEDICARE, OTHER ==
[2024-04-22 18:53] VITALS: O2SAT 96
--- NOTE | 2024-04-22 19:26 | CT Report ---
PROCEDURE: Head WO INDICATIONS: fall, pain TECHNIQUE: Noncontrast 4.5 mm thick angled axial sections acquired from the foramen magnum to the vertex. For r adiation dose reduction, the following was used: automated exposure control, adjustment of mA and/or kV according to patient size. COMPARISON: None. FINDINGS: Image quality: Excellent. CSF spaces: Basal cisterns are patent. No extra-axial fluid collections. Ventricles are normal in size and shape. Brain: No midline shift. No intracranial masses or hemorrhage. Connelly-white matter interface is norm al. Skull and face: Calvarium and visualized facial bones are intact, without suspicious lesions. Sinuses: Visualized sinuses and mastoids are clear. IMPRESSION: No CT evidence of acute intracranial trauma. No significant soft tissue injury or underlying fracture. Reviewed by: Shameka Joshua MD on 04/22/2024 7:24 PM PDT Approved by: Shameka Joshua MD on 04/22/2024 7:24 PM PDT Station ID: [id number]
--- NOTE | 2024-04-22 20:02 | CT Report ---
PROCEDURE: Cervical Spine WO INDICATIONS: fall, pain TECHNIQUE: Noncontrast 3 mm thick sections acquired from the skull base to the T4 level. Sagittal and coronal r eformats were then constructed. For radiation dose reduction, the following was used: automated exp osure control, adjustment of mA and/or kV according to patient size. COMPARISON: 12/22/2018 FINDINGS: Image quality: Diagnostic Bones: Trace C2 on C3 anterolisthesis, likely degenerative. Mild to moderate degenerative changes. Ve rtebral body heights are well-maintained. No traumatic subluxation. Soft tissues: Trace left mastoid effusion partially seen. There are vascular calcifications. No apica l pneumothorax prevertebral soft tissues are maintained. IMPRESSION: Mild to moderate spondylosis. No acute fracture or traumatic subluxation. If there is high concern fo r further derangement, consider MRI evaluation. Reviewed by: Kenny Vaughan MD on 04/22/2024 8:01 PM PDT Approved by: Kenny Vaughan MD on 04/22/2024 8:01 PM PDT Station ID: [id number]
--- NOTE | 2024-04-22 20:38 | ED Physician Documentation ---
PD HPI HEAD INJURY - Stated complaint Stated Complaint: FALL/HIT HEAD/RT ARM LAC - Chief complaint Chief Complaint: Trauma Hd/Nk - History obtained from History obtained from: Patient - Additional information Additional information: 73-year-old man not on blood thinners or anticoagulants aside from baby aspirin presents status post fall today after losing balance and hitting his head twice without LOC. denies n/v headache fnd. He did sustain abrasion to R forearm. unsure of last tdap PD PAST MEDICAL HISTORY - Past Medical History Cardiovascular: Hypertension, High cholesterol, Coronary artery disease, Angina, [place], Arrhythmia Respiratory: None, Pneumonia Endocrine/Autoimmune: Type 2 diabetes GI: GERD, GI bleed, Ulcers : None HEENT: None Psych: Depression Musculoskeletal: Chronic back pain Derm: None - Past Surgical History Past Surgical History: Yes General: Cholecystectomy Cardiovascular: Coronary stent, Cardiac catheterization, Angioplasty - Present Medications Home Medications: Ambulatory Orders Medication Instructions Recorded Confirmed Atorvastatin [Lipitor] 80 mg PO DAILY 11/24/15 04/22/24 Pantoprazole [Protonix] 40 mg PO BIDAC 02/13/16 04/22/24 Aspirin [Adult Low Dose Aspirin EC] 81 mg PO DAILY 02/15/16 04/22/24 Insulin Glargine,Hum.rec.anlog 27 - 36 units SQ BID 03/05/16 04/22/24 [Lantus] Ferrous Sulfate [Feosol] 325 mg PO DAILY 06/11/16 04/22/24 Insulin Lispro [Humalog] 12 - 18 units SUBQ ONCE 06/11/16 04/22/24 Cetirizine [ZyrTEC] 10 mg PO DAILY 06/17/16 04/22/24 Metoprolol Tartrate 100 mg PO BID 10/06/18 04/22/24 Famotidine [Pepcid AC] 20 mg PO QPM 04/06/19 04/22/24 Tamsulosin [Flomax] 0.4 mg PO DAILY 04/06/19 04/22/24 DULoxetine [Cymbalta] 90 mg PO DAILY 06/05/23 04/22/24 Dulaglutide [Trulicity] 4.5 mg SQ OAW 06/05/23 04/22/24 Nitroglycerin [Nitrostat] 0.4 mg SL [id number] 06/05/23 04/22/24 Acetaminophen [Tylenol] 500 mg PO TID PRN 03/13/24 04/22/24 Isosorbide Mononitrate [Isosorbide 120 mg PO DAILY 03/13/24 04/22/24 Mononitrate ER] Magnesium Oxide [Magnesium] 200 mg PO DAILY 03/13/24 04/22/24 Ranolazine [Ranolazine ER] 1,000 mg PO DAILY 03/13/24 04/22/24 Ubidecarenone/Vit E Acet [Co Q-10 1 each PO DAILY 03/13/24 04/22/24 100 mg Softgel] - Allergies Allergies/Adverse Reactions: Allergies Allergy/AdvReac Type Severity Reaction Status Date / Time No Known Drug Allergies Allergy Verified 04/22/24 18:40 - Social History Does the pt smoke?: No Smoking Status: Former smoker Does the pt drink ETOH?: Yes ETOH Use: Liquor Does the pt have substance abuse?: No Substance Use and Type: Marijuana - Immunizations Immunizations are current?: Yes - POLST Patient has POLST: No PD ED PE NORMAL - Vitals Vital signs reviewed: Yes - General General: Alert and oriented X 3, No acute distress, Well developed/nourished - HEENT HEENT: Atraumatic, PERRL, EOMI, Moist mucous membranes, Pharynx benign - Neck Neck: No bony TTP - Derm Derm: Normal color, Warm and dry - Neuro Neuro: Alert and oriented X 3, aircraft electrical systems specialist 2-12 intact, No motor deficit, No sensory deficit, Normal speech, Other (normal cerebellar testing) Eye Opening: Spontaneous Motor: Obeys Commands Verbal: Oriented GCS Score: 15 - Psych Psych: Normal mood, Normal affect Results - Vitals Vitals: Vital Signs - 24 hr 04/22/24 18:28 Temperature 36.2 C L Heart Rate 66 Respiratory 18 Rate Blood Pressure 116/62 O2 Saturation 96 Oxygen O2 Source [With Activity] Room air O2 Source Room air PD Medical Decision Making - ED course ED course: 73yM p/w head injury to R forehead without abrasion, hematoma or laceration. also with R forearm avulsion. tdap was updated. ct head/c spine benign and neuro exam normal. return precautions given. plan to f/u with pcp as needed. Departure - Departure Disposition: 01 Home, Self Care Clinical Impression: Head injury, Avulsion, skin Condition: Stable Instructions: ED Head Injury Closed, ED Avulsion Dermal Comments: You were seen in the emergency department for medical Evaluation after cervical spine CT showed no acute injuries. You should keep your right arm dressing clean and dry for 72 hours and then change the outer layer daily as needed. Please monitor for signs of infection. Your tetanus shot has been updated. Please follow-up with your primary care provider as needed and return to the emergency department if you have any new or worsening symptoms or other concerns. Forms: PCP List
[2024-04-22] MEDS: TETANUS/DIPHTHERIA/PERTUSSIS 0.5 ML SYRINGE IM ONE (20:57)
[2024-04-22 21:04] VITALS: BP 134/67
== END 2024-04-22 21:10 | disposition home or self-care (01) ==
LOC: ED 18:17
DX: Z87.891 Personal history of nicotine dependence (principal); S51.801A Unspecified open wound of right forearm, initial encounter; W19.XXXA Unspecified fall, initial encounter; W22.03XA Walked into furniture, initial encounter; Y93.01 Activity, walking, marching and hiking
CPT/HCPCS: 90471; 99283; 99284

== ENCOUNTER 2024-05-15 07:09 | Outpatient (CLI) | payer MEDICARE, OTHER ==
[2024-05-15 12:43] LABS: ESTIMATED AVERAGE GLUCOSE 120 mg/dL (70-100); HEMOGLOBIN A1c% 5.8 % (4.27-6.07)
[2024-05-15 12:51] LABS: ALBUMIN 4.7 g/dL (3.2-5.5); ALBUMIN/GLOBULIN RATIO 2.4 (1.0-2.2); BILIRUBIN,TOTAL 0.8 mg/dL (0.2-1.0); CALCIUM 9.6 mg/dL (8.5-10.3); CREATININE 1.1 mg/dL (0.6-1.3); POTASSIUM 4.2 mmol/L (3.5-4.5); TOTAL PROTEIN 6.7 g/dL (6.4-8.9)
[2024-05-15 13:00] LABS: THYROID STIMULATING HORMONE 2.13 uIU/mL (0.34-5.60)
== END 2024-05-15 07:10 | disposition home or self-care (01) ==
LOC: LAB.N 07:09
PROVIDERS: ATTEND Internal Medicine
DX: I10 Essential (primary) hypertension (principal); E11.42 Type 2 diabetes mellitus with diabetic polyneuropathy; F32.A Depression, unspecified
CPT/HCPCS: 36415; 80053; 83036; 84443

== ENCOUNTER 2024-05-22 13:52 | Outpatient (CLI) | payer MEDICARE, OTHER ==
--- NOTE | 2024-05-22 15:34 | XRAY Report ---
PROCEDURE: Knee 3V BL INDICATIONS: KNEE JOINT PAIN TECHNIQUE: 5 views of the knee(s) were acquired. COMPARISON: Right tib-fib radiograph on March 04, 2024. FINDINGS: Bones: Right knee: No fractures or dislocations. Mild tricompartmental joint space narrowing and juxta-adelina cular osteophytosis. Mild patellar tilt and subluxation on the sunrise view. No suspicious bony lesio ns. Left knee: No fractures or dislocations. Severe patellofemoral compartment joint space narrowing and juxta-articular osteophytosis with [id number] and moderate patellar tilt and subluxation. Moderate medial and mild lateral compartment joint space narrowing and juxta-articular osteophytosis. Ossific densities in the suprapatellar space. Soft tissues: No right knee joint effusion. Small left knee joint effusion. No suspicious soft tissue calcifications or masses. Surgical clips in the subcutaneous tissue of the right proximal calf and left distal femur. Chondrocalcinosis in the medial and lateral compartments, left greater than right. IMPRESSION: 1.No acute bony abnormality. 2.Bilateral tricompartmental osteoarthritis, left greater than right, most severe in the left patello femoral compartment where there is [id number] with associated moderate lateral tilt and subluxation . 3.Ossific densities in the left knee suprapatellar space a reflect loose bodies or enthesophytes. 4.Bilateral medial and lateral compartment chondrocalcinosis, left greater than right. Vascular calci fications. Reviewed by: Malik Min MD on 05/22/2024 3:33 PM PDT Approved by: Malik Mni MD on 05/22/2024 3:33 PM PDT Station ID: [id number]
== END 2024-05-22 13:53 | disposition home or self-care (01) ==
LOC: DI 13:52
PROVIDERS: ATTEND Internal Medicine
DX: M17.0 Bilateral primary osteoarthritis of knee (principal); M11.262 Other chondrocalcinosis, left knee; M11.261 Other chondrocalcinosis, right knee

== ENCOUNTER 2024-06-21 16:11 | Emergency (ER) | payer MEDICARE, OTHER ==
[2024-06-21 16:58] LABS: BASOPHILS % (AUTO) 0.3 %; EOSINOPHILS % (AUTO) 0.5 %; HCT - HEMATOCRIT 45.8 % (42.0-52.0); HGB - HEMOGLOBIN 15.4 g/dL (14.0-18.0); LYMPHOCYTES # (AUTO) 0.2 10^3/uL (1.5-3.5); LYMPHOCYTES % (AUTO) 4.1 %; MEAN CORPUSCULAR HEMOGLOBIN 31.2 pg (27.0-31.0); MEAN CORPUSCULAR HGB CONC 33.6 g/dL (32.0-36.0); MEAN CORPUSCULAR VOLUME 92.7 fL (80.0-94.0); MEAN PLATELET VOLUME 9.7 fL (7.4-11.4); MONOCYTES # (AUTO) 0.1 10^3/uL (0.0-1.0); MONOCYTES % (AUTO) 1.8 %; NEUTROPHILS # (AUTO) 3.7 10^3/uL (1.5-6.6); NEUTROPHILS % (AUTO) 92.8 %; PLT - PLATELET COUNT 104 10^3/uL (130-450); RED BLOOD COUNT 4.94 10^6/uL (4.70-6.10); RED CELL DISTRIBUTION WIDTH 11.8 % (12.0-15.0)
--- NOTE | 2024-06-21 17:07 | ED Physician Documentation ---
History of Present Illness - Stated complaint Stated Complaint: WEAKNESS - Chief complaint Chief Complaint: General - History obtained from History obtained from: Patient, Family - Additonal information Additional information: He has a history of remote coronary bypass. He was in his usual state of health this morning and he went to the pharmacy to get both COVID and flu shots and got those around 1130. On the way home he developed generalized weakness, shaking chills, runny nose, severe body aches and headache. His has not been ill. There is some mild chest pain with it. PD PAST MEDICAL HISTORY - Past Medical History Cardiovascular: Hypertension, High cholesterol, Coronary artery disease, Angina, HI, Arrhythmia Respiratory: None, Pneumonia Endocrine/Autoimmune: Type 2 diabetes GI: GERD, GI bleed, Ulcers : None HEENT: None Psych: Depression Musculoskeletal: Chronic back pain Derm: None - Past Surgical History Past Surgical History: Yes General: Cholecystectomy Cardiovascular: Coronary stent, Cardiac catheterization, Angioplasty - Present Medications Home Medications: Ambulatory Orders Medication Instructions Recorded Confirmed Atorvastatin [Lipitor] 80 mg PO DAILY 11/24/15 04/23/24 Pantoprazole [Protonix] 40 mg PO BIDAC 02/13/16 04/23/24 Aspirin [Adult Low Dose Aspirin EC] 81 mg PO DAILY 02/15/16 04/23/24 Insulin Glargine,Hum.rec.anlog 27 - 36 units SQ BID 03/05/16 04/23/24 [Lantus] Ferrous Sulfate [Feosol] 325 mg PO DAILY 06/11/16 04/23/24 Insulin Lispro [Humalog] 12 - 18 units SUBQ ONCE 06/11/16 04/23/24 Cetirizine [ZyrTEC] 10 mg PO DAILY 06/17/16 04/23/24 Metoprolol Tartrate 100 mg PO BID 10/06/18 04/23/24 Famotidine [Pepcid AC] 20 mg PO QPM 04/06/19 04/23/24 Tamsulosin [Flomax] 0.4 mg PO DAILY 04/06/19 04/23/24 DULoxetine [Cymbalta] 90 mg PO DAILY 06/05/23 04/23/24 Dulaglutide [Trulicity] 4.5 mg SQ OAW 06/05/23 04/23/24 Nitroglycerin [Nitrostat] 0.4 mg SL [id number] PRN 06/05/23 04/23/24 Acetaminophen [Tylenol] 500 mg PO TID PRN 03/13/24 04/23/24 Isosorbide Mononitrate [Isosorbide 120 mg PO DAILY 03/13/24 04/23/24 Mononitrate ER] Magnesium Oxide [Magnesium] 200 mg PO DAILY 03/13/24 04/23/24 Ranolazine [Ranolazine ER] 1,000 mg PO DAILY 03/13/24 04/23/24 Ubidecarenone/Vit E Acet [Co Q-10 1 each PO DAILY 03/13/24 04/23/24 100 mg Softgel] HYDROcod/ACETAM 5/325 [[place] 5/325] 1 - 2 tablet PO Q6H PRN #14 tablet 04/23/24 - Allergies Allergies/Adverse Reactions: Allergies Allergy/AdvReac Type Severity Reaction Status Date / Time No Known Drug Allergies Allergy Verified 06/21/24 16:14 - Social History Does the pt smoke?: No Smoking Status: Never smoker Does the pt drink ETOH?: Yes Does the pt have substance abuse?: No - Immunizations Immunizations are current?: Yes - POLST Patient has POLST: No PD ED PE NORMAL - Vitals Vital signs reviewed: Yes - General General: Alert and oriented X 3, No acute distress, Other (He has rigors) - HEENT HEENT: Pharynx benign - Cardiac Cardiac: RRR, No murmur - Respiratory Respiratory: No respiratory distress, Clear bilaterally - Abdomen Abdomen: Normal bowel sounds, Soft, Non tender - Derm Derm: No rash - Neuro Neuro: Alert and oriented X 3, Normal speech Results - Vitals Vitals: Vital Signs - 24 hr 06/21/24 06/21/24 16:14 18:21 Temperature 37.4 C Heart Rate 103 H 103 H Respiratory 18 22 Rate Blood Pressure 147/87 H 135/62 H O2 Saturation 99 95 Oxygen O2 Source [] Room air O2 Source Room air - EKG (time done) 1702 EKG releavant findings:: EKG personally interpreted by author of this note. Relevant findings are: Rate: Rate (enter#) (106) Rhythm: Sinus tachycardia Maxwell: Normal Intervals: Normal FL, Prolonged QT QRS: Normal Ischemia: Non specific changes. No: ST elevation c/w ischemia, ST depression - Labs Labs: Laboratory Tests 06/21/24 06/21/24 06/21/24 16:52 16:52 16:52 WBC 4.0 L RBC 4.94 Hgb 15.4 Hct 45.8 MCV 92.7 MCH 31.2 H MCHC 33.6 RDW 11.8 L Plt Count 104 L MPV 9.7 Neut # (Auto) 3.7 Lymph # (Auto) 0.2 L [place]ink[place] # (Auto) 0.1 Eos # (Auto) 0.0 Baso # (Auto) 0.0 Absolute Nucleated RBC 0.00 Nucleated RBC % 0.0 Sodium 133 L Potassium 4.3 Chloride 101 Carbon Dioxide 26 Anion Gap 6.0 BUN 17 Creatinine 1.2 Estimated GFR (MDRD) 59 L Glucose 191 H Lactic Acid 1.3 Calcium 8.6 Total Bilirubin 0.7 AST 15 ALT 15 Alkaline Phosphatase 106 Troponin I High Sens Total Protein 6.2 L Albumin 4.1 Globulin 2.1 Albumin/Globulin Ratio 2.0 Nasal Adenovirus (PCR) Nasal B. parapertussis DNA (PCR) Nasal Coronavir 229E PCR Nasal Coronavir HKU1 PCR Nasal Coronavir NL63 PCR Nasal Coronavir OC43 PCR Nasal Enterovir/Rhinovir PCR Nasal Influenza B PCR Nasal Influenza A PCR Nasal Parainfluen 1 PCR Nasal Parainfluen 2 PCR Nasal Parainfluen 3 PCR Nasal Parainfluen 4 PCR Nasal RSV (PCR) Nasal B.pertussis DNA PCR Nasal C.pneumoniae (PCR) Tim Human Metapneumo PCR Nasal M.pneumoniae (PCR) Nasal SARS-CoV-2 (PCR) 06/21/24 06/21/24 16:52 17:05 WBC RBC Hgb Hct MCV MCH MCHC RDW Plt Count MPV Neut # (Auto) Lymph # (Auto) [place]ink[place] # (Auto) Eos # (Auto) Baso # (Auto) Absolute Nucleated RBC Nucleated RBC % Sodium Potassium Chloride Carbon Dioxide Anion Gap BUN Creatinine Estimated GFR (MDRD) Glucose Lactic Acid Calcium Total Bilirubin AST ALT Alkaline Phosphatase Troponin I High Sens 5.6 Total Protein Albumin Globulin Albumin/Globulin Ratio Nasal Adenovirus (PCR) NOT DETECTED Nasal B. parapertussis DNA (PCR) NOT DETECTED Nasal Coronavir 229E PCR NOT DETECTED Nasal Coronavir HKU1 PCR NOT DETECTED Nasal Coronavir NL63 PCR NOT DETECTED Nasal Coronavir OC43 PCR NOT DETECTED Nasal Enterovir/Rhinovir PCR NOT DETECTED Nasal Influenza B PCR NOT DETECTED Nasal Influenza A PCR NOT DETECTED Nasal Parainfluen 1 PCR NOT DETECTED Nasal Parainfluen 2 PCR NOT DETECTED Nasal Parainfluen 3 PCR NOT DETECTED Nasal Parainfluen 4 PCR NOT DETECTED Nasal RSV (PCR) NOT DETECTED Nasal B.pertussis DNA PCR NOT DETECTED Nasal C.pneumoniae (PCR) NOT DETECTED Tim Human Metapneumo PCR NOT DETECTED Nasal M.pneumoniae (PCR) NOT DETECTED Nasal SARS-CoV-2 (PCR) NOT DETECTED PD Medical Decision Making - ED course ED course: He presents with shaking chills and weakness after getting COVID and flu shots. He got sick within a half an hour or so you wonder if he was already "brewing" something. He looks miserable here but nontoxic. Mild resting tachycardia. He was administered IV fluids and pain meds with improvement. Workup demonstrates a lymphopenia likely consistent with viral process. [employer] respiratory panel was negative. CMP and lactate were unremarkable save mild hyponatremia and hyperglycemia. Departure - Departure Disposition: 01 Home, Self Care Clinical Impression: Viral syndrome Condition: Stable Record reviewed to determine appropriate education?: Yes Instructions: ED Viral Syndrome Comments: Unclear if your illness today is from some other virus other than COVID or the vaccines. The speed at which you got sick suggest to me that maybe you are already getting sick when you got the shots. You will know over the next day or 2, if it is a vaccine 0 should just be sick for the day, it would last longer if it some other virus. I sent a prescription for some pain medications to [facility]. In addition take Tylenol and/or ibuprofen for the aches and shaking chills. Drink plenty fluids. Return if worse. Follow-up with your doctor in a few days if not improved. I am prescribing a short course of narcotic pain medication for you. These are potentially dangerous and addictive medications that should be used carefully. These medications may constipate you. Take an nqks-ngx-hnbobkv stool softener (docusate) twice daily with plenty of water while taking these medications. If you go 24 hours without a bowel movement, take [id number] miralax, per package instructions. Do not drink or drive while taking these medications. If you received narcotic or sedating medications while in the emergency department, do not drive for 24 hours. Store this medication in a safe, secure place and out of reach of children. It is a violation of federal law to give or sell this medication to another person or to use in a manner other than prescribed. The ED will not refill narcotic prescriptions, including prescriptions lost or stolen. To dispose of unwanted medications: 1. [facility] provides a drop box for medication in pill form only (no liquids) 8:00 am to 4:30 p.m. Saturday-Saturday in the lobby of the [facility], [address] [place] [address]. Empty pills into ziplock bag before disposal. Call [phone] for information. 2.[employer] is a free service available to all [facility] residents. Go to [email or web address] Note that many narcotic pain relievers also contain Tylenol/acetaminophen. Please ensure that your total dose of acetaminophen from all sources does not exceed 3 g (3000 mg) per day. Forms: PCP List
[2024-06-21 17:14] LABS: ALBUMIN 4.1 g/dL (3.2-5.5); BILIRUBIN,TOTAL 0.7 mg/dL (0.2-1.0); CALCIUM 8.6 mg/dL (8.5-10.3); CREATININE 1.2 mg/dL (0.6-1.3); POTASSIUM 4.3 mmol/L (3.5-4.5); TOTAL PROTEIN 6.2 g/dL (6.4-8.9)
[2024-06-21] MEDS: SODIUM CHLORIDE 0.9% 1,000 ML IV STA (17:29)
[2024-06-21] MEDS: HYDROmorphone 1 MG/ML CARPUJECT IVP STA ×2 (17:29→18:59)
[2024-06-21] MEDS: KETOROLAC 15 MG/ML VIAL IVP STA (17:29)
[2024-06-21 18:22] LABS: B. PARAPERTUSSIS- RESP PCR PAN NOT DETECTED; B. PERTUSSIS- RESP PCR PANEL NOT DETECTED; C. PNEUMONIAE- RESP PCR PANEL NOT DETECTED; CORONAVIRUS 229E-RESP PCR NOT DETECTED; CORONAVIRUS HKU1-RESP PCR NOT DETECTED; CORONAVIRUS NL63-RESP PCR NOT DETECTED; CORONAVIRUS OC43-RESP PCR NOT DETECTED; HUMAN METAPNEUMOVIRUS NOT DETECTED; INFLUENZA A- RESP PCR PANEL NOT DETECTED; INFLUENZA B - RESP PCR PANEL NOT DETECTED; M. PNEUMONIAE- RESP PCR PANEL NOT DETECTED; PARAINFLUENZA VIRUS 1 NOT DETECTED; PARAINFLUENZA VIRUS 2 NOT DETECTED; PARAINFLUENZA VIRUS 3 NOT DETECTED; PARAINFLUENZA VIRUS 4 NOT DETECTED; RHINOVIRUS/ENTEROVIRUS NOT DETECTED; RSV- RESP PCR PANEL NOT DETECTED; SARS-CoV-2 -RESP PCR PANEL NOT DETECTED
[2024-06-21] MEDS: oxyCODONE/ACET 5/325 Prepack 4 PO STA (18:59)
[2024-06-21 20:19] VITALS: BP 126/78; O2SAT 97
== END 2024-06-21 19:20 | disposition home or self-care (01) ==
LOC: ED 16:11
DX: B34.9 Viral infection, unspecified (principal)
CPT/HCPCS: 36415; 80053; 83605; 84484; 85025; 87633; 93005; 96374; 96376; 99283; 99284; J1170

== ENCOUNTER 2024-12-15 16:42 | Inpatient (IN) ==
--- NOTE | 2024-12-15 17:06 | ED Physician Documentation ---
History of Present Illness Stated complaint Stated Complaint: GLF/LEG PX Chief complaint Chief Complaint: Trauma Ext History obtained from History obtained from: Patient and EMS Additonal information Additional information: 74-year-old gentleman with history of coronary disease, four-vessel bypass in 2019, not anticoagulated. He also had a right knee replacement 5 weeks ago and is still on the occasional Percocet. He was backing up while walking today and tripped over his dog's and went down onto the ground. He hit his head without loss of consciousness and only mild headache. More pressing is left hip pain. He was unable to get up unassisted due to a combination of pain after the fall he declines anything for pain on initial evaluation. When he first got here he was somewhat hypotensive, in the range of 90/60, on my evaluation it is 109/51. He has not been short of breath or having any chest pain. Meds/Allgy Home Medications Ambulatory Orders Medication Instructions Recorded Confirmed pantoprazole 40 mg tablet,delayed 40 mg PO BIDAC 02/13/16 10/08/24 release aspirin 81 mg tablet,delayed 81 mg PO DAILY 02/15/16 10/08/24 release (Adult Low Dose Aspirin) ferrous sulfate 325 mg (65 mg 325 mg PO DAILY 06/11/16 04/23/24 iron) tablet cetirizine 10 mg tablet 10 mg PO DAILY 06/17/16 10/08/24 duloxetine 30 mg capsule,delayed 90 mg PO DAILY 06/05/23 10/08/24 release nitroglycerin 0.4 mg sublingual 0.4 mg sublingual [id number] PRN Pain 06/05/23 10/08/24 tablet 1-4 acetaminophen 500 mg tablet 500 mg PO TID PRN As Needed Per 03/13/24 10/08/24 Provider Orders coenzyme [id number] E 100 mg-5 1 ea PO DAILY 03/13/24 10/08/24 unit capsule (Co Q-10 (with Vit E)) isosorbide mononitrate 120 mg 120 mg PO DAILY 03/13/24 10/08/24 tablet,extended release 24 hr magnesium oxide 200 mg PO DAILY 03/13/24 10/09/24 ranolazine 1,000 mg 1,000 mg PO DAILY 03/13/24 10/08/24 tablet,extended release,12 hr diclofenac sodium 1 % topical gel 2 g topical QID 10/08/24 10/08/24 tirzepatide 7.5 mg/0.5 mL 7.5 mg (0.5 mL) subcut QWEEK #6.5 10/09/24 10/09/24 subcutaneous pen injector mL (Mounjaro) insulin lispro 100 unit/mL 12 - 18 unit subcut .ac meals TID 10/16/24 10/16/24 subcutaneous solution (Humalog U-100 Insulin) metoprolol tartrate 50 mg tablet 75 mg (1.5 x 50 mg) PO BID #270 10/16/24 10/16/24 tabs valacyclovir 1 gram tablet 2,000 mg PO DIRECTED 10/16/24 10/16/24 atorvastatin 80 mg tablet 80 mg PO DAILY #90 tabs 10/23/24 insulin glargine 100 unit/mL 27 - 36 unit (0.27 - 0.36 mL) 11/02/24 subcutaneous solution (Lantus subcut BID #60 mL U-100 Insulin) tamsulosin 0.4 mg capsule See Rx Instructions .Route 11/09/24 .COMPLEX #90 caps Allergies Allergies Allergy/AdvReac Type Severity Reaction Status Date / Time No Known Drug Allergies Allergy Verified 12/15/24 16:48 [facility] Active Problems All Active Problems (Updated 12/15/24 @ 18:45 by Pankaj Quezada MD) Contusion of scalp (Acute) Closed fracture of neck of left femur (Acute) Ground-level fall (Acute) Injury of hip and thigh (Acute) Coronary artery disease involving [place] coronary artery (Acute) Mixed hyperlipidemia (Acute) Paroxysmal atrial fibrillation (Acute 04/01/19) Essential hypertension (Acute) Type 2 diabetes mellitus with peripheral neuropathy (Acute 09/26/20) Acquired hypothyroidism (Acute) Obstructive sleep apnea on CPAP (Acute) BPH w urinary obs/LUTS (Acute) GERD (gastroesophageal reflux disease) (Acute) Depression (Acute 08/15/06) Osseous stenosis of neural canal of lumbar region (Acute 10/12/21) DJD (degenerative joint disease) of thoracic spine (Acute 05/25/21) Adenomatous colon polyp (Acute 09/14/14) Actinic skin damage (Acute) Bilateral primary osteoarthritis of knee (Acute) Atopic eczema (Acute) Herpes labialis (Acute 10/02/19) Medical History Medical History (Updated 12/15/24 @ 18:45 by Pankaj Quezada MD) Inflammatory bowel disease (Crohn's disease) possible Crohn's in 2017, not noted on future studies 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 uzma ne Autoimmune hemolytic anemias (02/13/18) Acquired hemolytic anemia (02/17/16) Surgical History Surgical History H/O colonoscopy 04/2024, no polyps + sigmoid diverticulosis Fragmented bone 02/2024, removed from right anterior pisano H/O esophagogastroduodenoscopy 10/2022, mild chronic inflammation S/P ablation of atrial flutter 02/2022 S/P lumbar laminectomy 01/2022, L2-3 H/O endoscopy 06/2020, prominent papilla, o/w benign Arthrodesis present 11/2019, right foot, digists 2-5 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 Santana S/P cholecystectomy Status post Matt fundoplication H/O heart artery stent 11/2012, GE-RCA + proximal PDA 04/2015, GE-distal RCA H/O heart artery stent 2001, RCA x 2 stents Family History Family History Mother FH: early coronary artery disease Father FH: early coronary artery disease CVA (cerebral vascular accident) Social History Social History Smoking Status: Former smoker If you are a former smoker, when did you quit? (Date/Year): 1980 Number of Years Smoked: 24 How many cigarettes a day do you smoke? (20 cigarettes=1 Pk): 20 Second hand tobacco smoke exposure: No Do you dip or chew tobacco?: No Living arrangement: At home Marital Status: Living Condition: With spouse/s.o. 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 He is full range of motion of both shoulders. He has pain with external rotation of the left hip. The right knee is tender but he says that is just from the recent knee replacement. Neurology GCS 15 Results Vitals Vitals: Vital Signs - 24 hr 12/15/24 16:46 12/15/24 16:58 12/15/24 17:38 Temperature 36.3 C L Temperature Source Temporal Artery Scan Pulse Rate 79 74 75 Respiratory Rate 18 18 15 Blood Pressure 96/52 L 109/51 L 94/52 L O2 Saturation 98 93 94 O2 Source Room air Room air Room air Pain Intensity 8 8 12/15/24 18:07 12/15/24 18:18 Temperature Temperature Source Pulse Rate 73 Respiratory Rate Blood Pressure 116/64 O2 Saturation 94 O2 Source Room air Pain Intensity 8 5 Oxygen O2 Source [With Activity] Room air O2 Source Room air EKG (time done) 1654: EKG releavant findings:: EKG personally interpreted by author of this note. Relevant findings are: Sinus rhythm with a rate of 74, some artifact. Computer reading short NE interval but I think that is artifactual. Also early transition of the R waves. No ST elevation or depression. Labs Labs: Laboratory Tests 12/15/24 16:53 WBC 7.5 RBC 4.35 L Hgb 13.0 L Hct 39.7 L MCV 91.3 MCH 29.9 MCHC 32.7 RDW 12.7 Plt Count 139 MPV 9.8 Neut # (Auto) 5.5 Lymph # (Auto) 0.8 L [place] # (Auto) 0.7 Eos # (Auto) 0.4 Baso # (Auto) 0.1 Absolute Nucleated RBC 0.00 Nucleated RBC % 0.0 Sodium 133 L Potassium 4.6 H Chloride 101 Carbon Dioxide 26 Anion Gap 6.0 BUN 12 Creatinine 1.0 Estimated GFR (MDRD) 73 L Glucose 91 Calcium 8.3 L Total Bilirubin 0.7 AST 16 ALT 13 Alkaline Phosphatase 108 Total Protein 5.7 L Albumin 3.8 Globulin 1.9 L Albumin/Globulin Ratio 2.0 Rads (name of study) CT head and cervical spine were negative for traumatic abnormalities.: Relevant Findings:: Final report received and EMP independent interpretation of test (NAD) CT of the pelvis demonstrates a nondisplaced left femoral neck fracture. CT pelvis demonstrates a left nondisplaced femoral neck fracture: Relevant Findings:: Final report received and EMP independent interpretation of test PD Medical Decision Making ED course Complexity details: reviewed results (CBC/CMP- mild anemia) ED course: He presents after a ground-level fall. He has comorbidities including diabetes and history of coronary disease with CABG, AMPARO. A lot of pain in the left hip and found on imaging to have a left nondisplaced femoral neck fracture. No head or neck injury. The appearance of the right femur was abnormal on CT with an x- ray showing bony remodeling, he had a fracture there at age 15 with prior hardware which was subsequently removed. We do not have orthopedics on-call, I did text the to orthopedist to see if they were around, neither immediately got back to me. We may have to transfer him for this. Subsequently though, Dr Kiel Live did respond and look at the images. He graciously will take the pt to OR tomorrow and spoke with JEROD Chairez for admit at 7:25pm Discharge Plan Discharge Patient Disposition: 66 [facility] DC/Xfer Clinical Impression: Obstructive sleep apnea on CPAP, Type 2 diabetes mellitus with peripheral neuropathy, Injury of hip and thigh, Ground-level fall, Closed fracture of neck of left femur, Contusion of scalp Coronary artery disease involving [place] coronary artery Qualifiers: [place] vs. transplanted heart: [place] heart Associated angina: without angina Qualified Code(s): I25.10 - Atherosclerotic heart disease of [place] coronary artery without angina pectoris Prescriptions: No Action atorvastatin 80 mg tablet 80 mg PO DAILY Qty: 90 3RF insulin glargine [Lantus U-100 Insulin] 100 unit/mL solution 27 - 36 unit subcut BID Qty: 60 3RF Rx Instructions: Inject 27 units in the AM and 36 units in the PM tamsulosin 0.4 mg capsule See Rx Instructions .ROUTE .COMPLEX Qty: 90 3RF Dose Instruction: TAKE ONE CAPSULE BY MOUTH ONE TIME DAILY Rx Instructions: TAKE ONE CAPSULE BY MOUTH ONE TIME DAILY pantoprazole 40 MG tablet,delayed release (DR/EC) 40 mg PO BIDAC aspirin [Adult Low Dose Aspirin] 81 MG tablet,delayed release (DR/EC) 81 mg PO DAILY ferrous sulfate 325 MG tablet 325 mg PO DAILY cetirizine 10 MG tablet 10 mg PO DAILY nitroglycerin 0.4 MG tablet, sublingual 0.4 mg sublingual [id number] PRN (Reason: Pain 1-4) duloxetine 30 MG capsule,delayed release(DR/EC) 90 mg PO DAILY Rx Instructions: 60mg am, 30mg pm isosorbide mononitrate 120 MG tablet extended release 24 hr 120 mg PO DAILY acetaminophen 500 MG tablet 500 mg PO TID PRN (Reason: As Needed Per Provider Orders) coenzyme H93-[id number] E [Co Q-10 (with Vit E)] 1 EACH capsule 1 ea PO DAILY ranolazine 1,000 MG tablet extended release 12 hr 1,000 mg PO DAILY magnesium oxide 200 MG tablet,chewable 200 mg PO DAILY diclofenac sodium 1 % gel 2 g topical QID Rx Instructions: apply to single elbow, wrist or hand; for hand includes palm/fingers/back of hand Mounjaro 7.5 mg/0.5 mL pen injector 7.5 mg subcut QWEEK Qty: 6.5 3RF metoprolol tartrate 50 mg tablet 75 mg PO BID Qty: 270 3RF valacyclovir 1 gram tablet 2,000 mg PO DIRECTED Rx Instructions: 2 tab BID x 1 day prn HSV outbreak insulin lispro [Humalog U-100 Insulin] 100 unit/mL solution 12 - 18 unit subcut .ac meals TID Rx Instructions: 16 units breakfast, 12 units lunch, 18 units dinner Print Language: [place]ar[place]
[2024-12-15 17:15] LABS: BASOPHILS # (AUTO) 0.1 10^3/uL (0.0-0.1); BASOPHILS % (AUTO) 0.8 %; EOSINOPHILS # (AUTO) 0.4 10^3/uL (0.0-0.7); EOSINOPHILS % (AUTO) 5.2 %; HCT - HEMATOCRIT 39.7 % (42.0-52.0); LYMPHOCYTES # (AUTO) 0.8 10^3/uL (1.5-3.5); LYMPHOCYTES % (AUTO) 10.9 %; MEAN CORPUSCULAR HEMOGLOBIN 29.9 pg (27.0-31.0); MEAN CORPUSCULAR HGB CONC 32.7 g/dL (32.0-36.0); MEAN CORPUSCULAR VOLUME 91.3 fL (80.0-94.0); MEAN PLATELET VOLUME 9.8 fL (7.4-11.4); MONOCYTES # (AUTO) 0.7 10^3/uL (0.0-1.0); MONOCYTES % (AUTO) 8.9 %; NEUTROPHILS # (AUTO) 5.5 10^3/uL (1.5-6.6); NEUTROPHILS % (AUTO) 73.5 %; PLT - PLATELET COUNT 139 10^3/uL (130-450); RED BLOOD COUNT 4.35 10^6/uL (4.70-6.10); RED CELL DISTRIBUTION WIDTH 12.7 % (12.0-15.0); WHITE BLOOD COUNT 7.5 x10^3/uL (4.8-10.8)
[2024-12-15 17:26] LABS: ALBUMIN 3.8 g/dL (3.2-5.5); BILIRUBIN,TOTAL 0.7 mg/dL (0.2-1.0); CALCIUM 8.3 mg/dL (8.5-10.3); POTASSIUM 4.6 mmol/L (3.5-4.5); TOTAL PROTEIN 5.7 g/dL (6.4-8.9)
[2024-12-15] MEDS: SODIUM CHLORIDE 0.9% 1,000 ML IV STA (17:31)
--- NOTE | 2024-12-15 18:03 | CT Report ---
PROCEDURE: CT Head WO INDICATIONS: head inj TECHNIQUE: Noncontrast 4.5 mm thick angled axial sections acquired from the foramen magnum to the vertex. For r adiation dose reduction, the following was used: automated exposure control, adjustment of mA and/or kV according to patient size. COMPARISON: Head CT 04/22/2024, 12/22/2018. FINDINGS: Image quality: Excellent. CSF spaces: Basal cisterns are patent. No extra-axial fluid collections. Ventricles are normal in size and shape. Brain: No midline shift. No intracranial masses or hemorrhage. No area of hypodensity in a vascula r distribution to suggest acute infarction. There is periventricular hypodensity consistent with field ring assembler maxx microvascular ischemic disease. Age-related parenchymal loss. Skull and face: Calvarium and visualized facial bones are intact, without suspicious lesions. Sinuses: No significant mucosal thickening. Opacification of the left posterior mastoid air cells, ch ronic. IMPRESSION: No acute intracranial hemorrhage. Reviewed by: Chao Smith MD on 12/15/2024 6:01 PM PST Approved by: Chao Smith MD on 12/15/2024 6:01 PM PST Station ID: [id number]
--- NOTE | 2024-12-15 18:06 | CT Report ---
PROCEDURE: CT Cervical Spine WO INDICATIONS: head inj TECHNIQUE: Noncontrast 3 mm thick sections acquired from the skull base to the T4 level. Sagittal and coronal r eformats were then constructed. For radiation dose reduction, the following was used: automated exp osure control, adjustment of mA and/or kV according to patient size. COMPARISON: CT cervical spine 04/22/2024. FINDINGS: Image quality: Excellent. Bones: No fractures or dislocations. Moderate degenerative changes. Right T7 bone island. Visualized superior ribs are intact. Soft tissues: Prevertebral soft tissues are normal in thickness. No paravertebral hematomas. No ap ical pneumothoraces. Chronic opacification of the posterior left mastoid air cells. IMPRESSION: No acute osseous abnormality. Reviewed by: Chao Smith MD on 12/15/2024 6:05 PM PST Approved by: Chao Smith MD on 12/15/2024 6:05 PM PST Station ID: [id number]
--- NOTE | 2024-12-15 18:13 | CT Report ---
PROCEDURE: CT Pelvis WO INDICATIONS: L hip inj TECHNIQUE: Noncontrast 3 mm axial sections acquired through the bony pelvis, with coronal and sagittal reformatt ing. For radiation dose reduction, the following was used: automated exposure control, adjustment of mA and/or kV according to patient size. COMPARISON: Same day right femur radiographs CT abdomen and pelvis 09/06/2020. FINDINGS: Image quality: Excellent. Bones: Nondisplaced fracture of the left femoral neck, (). No dislocation. Bony remodeling at the proximal right femur. This appears to be postsurgical in nature from prior int ramedullary olivia. There are a few small scattered colonic foci which have the appearance of bone islan ds.. Soft tissues: No large hematoma. No free fluid in the pelvis. Arterial vascular calcifications. Norm al appendix. Diverticulosis. Thickening in the ventral abdominal wall subcutaneous fat may increase c ompared to 2019. IMPRESSION: Nondisplaced fracture of the left femoral neck. Reviewed by: Chao Smith MD on 12/15/2024 6:12 PM PST Approved by: Chao Smith MD on 12/15/2024 6:12 PM PST Station ID: [id number]
--- NOTE | 2024-12-15 18:15 | XRAY Report ---
PROCEDURE: XR Femur 2+V RT INDICATIONS: abn ct TECHNIQUE: 2 views of the femur were acquired. COMPARISON: Same day pelvic CT FINDINGS: Bones: No fractures or dislocations. No suspicious bony lesions. Suspected healed mid femur shaft fracture. Total knee arthroplasty. Soft tissues: No suspicious soft tissue calcifications or masses. IMPRESSION: Suspected healed mid femur shaft fracture. Correlate with history. Reviewed by: Mark Ritchie MD on 12/15/2024 6:14 PM PST Approved by: Mark Ritchie MD on 12/15/2024 6:14 PM PST Station ID: [id number]
[2024-12-15] MEDS: oxyCODONE 5 MG TABLET PO STA (18:18)
[2024-12-15] MEDS ORDERED: oxyCODONE 5 MG TABLET ONE (18:37)
--- NOTE | 2024-12-15 20:09 | PREOP HISTORY & PHYSICAL ---
Surgical History & Physical Chief Complaint/HPI History of Present Illness: CC: LEFT Hip Pain HPI: 74yo M with a past medical history of coronary artery degrees status post four- vessel bypass in 2019 not anticoagulated, diabetes mellitus, Crohn's disease, autoimmune hemolytic anemia presented to the emergency department following a ground-level fall. He reports that he had a right knee replacement 5 weeks ago. He was attempting to walk backwards and tripped over his dog and went down to the ground. He hit his head without loss of consciousness. He had immediate pain in the left hip and was unable to stand up. He was then brought to the emergency department who obtain imaging that demonstrated the nondisplaced left femoral neck fracture. He reports that he has isolated left hip pain at this time. Home Meds and Allergies Active Medications Generic Name Dose Route Start Last Admin Trade Name Freq PRN Reason Stop Dose Admin Acetaminophen 1,000 mg 12/15/24 18:47 12/16/24 02:54 Acetaminophen 500 Mg Tablet PO 1,000 mg Q6H PRN Administration Mild Pain Or Fever>38c(100.4f) Acetaminophen 650 mg 12/15/24 20:49 Acetaminophen 325 Mg Tablet PO Q4HR PRN Pain 1 to 4, or Fever Atorvastatin Calcium 80 mg 12/15/24 21:00 12/15/24 22:10 Atorvastatin 40 Mg Tablet PO 80 mg QPM MELISSA Administration Duloxetine HCl 90 mg 12/16/24 09:00 Duloxetine 30 Mg Capsule PO DAILY MELISSA Hydromorphone HCl 0.5 mg 12/15/24 20:49 12/16/24 05:54 Hydromorphone 0.5 Mg/0.5 Ml Syringe IVP 0.5 mg Q2H PRN Administration Severe Pain (Level 7-10) Lactated Ringer's 1,000 mls @ 100 mls/hr 12/15/24 20:49 12/16/24 06:05 Lr IV 100 mls/hr .Q10H MELISSA Administration Insulin Human Lispro 3 - 11 unit 12/15/24 21:00 12/15/24 21:24 Insulin Lispro 300 Unit/3 Ml Pen SUBQ Not Given 0800,1200,1700,2100 [facility] Protocol Isosorbide Mononitrate 120 mg 12/16/24 09:00 Isosorbide Mononitrate Er 30 Mg Tablet PO DAILY [facility] Metoprolol Tartrate 75 mg 12/15/24 21:00 12/15/24 22:10 Metoprolol Tartrate 25 Mg Tablet PO 75 mg BID MELISSA Administration Ondansetron HCl 4 mg 12/15/24 18:47 12/16/24 06:01 Ondansetron 4 Mg/2 Ml Vial IVP 4 mg Q6HR PRN Administration Nausea / Vomiting Ondansetron HCl 4 mg 12/15/24 20:49 Ondansetron 4 Mg/2 Ml Vial IVP Q6HR PRN Nausea / Vomiting Oxycodone HCl 10 mg 12/15/24 18:47 12/16/24 05:00 Oxycodone 5 Mg Tablet PO 10 mg Q4H PRN Administration Moderate to Severe pain (4-10) Pantoprazole Sodium 40 mg 12/16/24 07:00 12/16/24 06:02 Pantoprazole 40 Mg Tablet PO 40 mg QDAC MELISSA Administration Sodium Chloride 10 ml 12/15/24 20:49 Sodium Chloride Flush 0.9% 10 Ml Syringe IVP PRN PRN NEEDED PER PROVIDER ORDERS Sodium Chloride 10 ml 12/16/24 01:00 12/16/24 00:51 Sodium Chloride Flush 0.9% 10 Ml Syringe IVP Not Given 0100,0900,1700 MELISSA Tamsulosin HCl 0.4 mg 12/16/24 09:00 Tamsulosin 0.4 Mg Capsule PO DAILY [facility] pantoprazole 40 mg tablet,delayed release 40 mg PO BIDAC 02/13/16 aspirin 81 mg tablet,delayed release (Adult Low Dose Aspirin) 81 mg PO DAILY 02/15/16 ferrous sulfate 325 mg (65 mg iron) tablet 325 mg PO DAILY 06/11/16 cetirizine 10 mg tablet 10 mg PO DAILY 06/17/16 duloxetine 30 mg capsule,delayed release 90 mg PO DAILY 06/05/23 nitroglycerin 0.4 mg sublingual tablet 0.4 mg sublingual [id number] PRN Pain 1-4 06/05/23 acetaminophen 500 mg tablet 500 mg PO TID PRN As Needed Per Provider Orders 03/13/24 coenzyme [id number] E 100 mg-5 unit capsule (Co Q-10 (with Vit E)) 1 ea PO DAILY 03/13/24 isosorbide mononitrate 120 mg tablet,extended release 24 hr 120 mg PO DAILY 03/13/24 magnesium oxide 200 mg PO DAILY 03/13/24 ranolazine 1,000 mg tablet,extended release,12 hr 1,000 mg PO DAILY 03/13/24 diclofenac sodium 1 % topical gel 2 g topical QID 10/08/24 tirzepatide 7.5 mg/0.5 mL subcutaneous pen injector (Mounjaro) 7.5 mg (0.5 mL) subcut QWEEK #6.5 mL 10/09/24 insulin lispro 100 unit/mL subcutaneous solution (Humalog U-100 Insulin) 12 - 18 unit subcut .ac meals TID 10/16/24 metoprolol tartrate 50 mg tablet 75 mg (1.5 x 50 mg) PO BID #270 tabs 10/16/24 valacyclovir 1 gram tablet 2,000 mg PO DIRECTED 10/16/24 atorvastatin 80 mg tablet 80 mg PO DAILY #90 tabs 10/23/24 insulin glargine 100 unit/mL subcutaneous solution (Lantus U-100 Insulin) 27 - 36 unit (0.27 - 0.36 mL) subcut BID #60 mL 11/02/24 tamsulosin 0.4 mg capsule See Rx Instructions .Route .COMPLEX #90 caps 11/09/24 Allergies Allergy/AdvReac Type Severity Reaction Status Date / Time No Known Drug Allergies Allergy Verified 12/15/24 16:48 Vital Signs O2 Saturation: 94 Patient Review Patient Review Pertinent Tests Reviewed [facility] Medical History Medical History (Updated 12/15/24 @ 18:45 by Pankaj Quezada MD) Inflammatory bowel disease (Crohn's disease) possible Crohn's in 2018, not noted on future studies 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 Autoimmune hemolytic anemias (02/13/18) Acquired hemolytic anemia (02/17/16) Surgical History Surgical History H/O colonoscopy 04/2024, no polyps + sigmoid diverticulosis Fragmented bone 02/2024, removed from right anterior pisano H/O esophagogastroduodenoscopy 10/2022, mild chronic inflammation S/P ablation of atrial flutter 02/2022 S/P lumbar laminectomy 01/2022, L2-3 H/O endoscopy 06/2020, prominent papilla, o/w benign Arthrodesis present 11/2019, right foot, digists 2-5 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 Santana S/P cholecystectomy Status post Matt fundoplication H/O heart artery stent 11/2012, GE-RCA + proximal PDA 04/2015, GE-distal RCA H/O heart artery stent 2001, RCA x 2 stents Family History Family History Mother FH: early coronary artery disease Father FH: early coronary artery disease CVA (cerebral vascular accident) Social History Social History Smoking Status: Never smoker If you are a former smoker, when did you quit? (Date/Year): 1980 Number of Years Smoked: 24 How many cigarettes a day do you smoke? (20 cigarettes=1 Pk): 20 Second hand tobacco smoke exposure: No Do you dip or chew tobacco?: No Living arrangement: At home Marital Status: Living Condition: With spouse/s.o. 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 ROM deferred due to known fracture Neurovascular exam: Fires q/h/ta/gc/ehl; SILT s/s/sp/dp/t, 2+ dp Imaging: Pelvis CT scan on December 15, 2024: Nondisplaced fracture of the left femoral neck. Remodeling of the right femoral shaft. Right femur radiographs on December 15, 2024: Evidence of total knee replacement. There is also remodeling of the femoral shaft. Assessment & Plan Assessment & Plan Assessment & Plan: 74yo M with a past medical history of coronary artery degrees status post four- vessel bypass in 2019 not anticoagulated, diabetes mellitus, Crohn's disease, autoimmune hemolytic anemia who presents with a nondisplaced left femoral neck fracture. It was explained to the patient that this type of injury requires surgical intervention for early recovery and return to weightbearing. The risk, benefits and alternatives of the procedure were discussed with the patient to include bleeding, infection, damage surrounding structures, ongoing pain, hip stiffness, need for additional surgeries and anesthesia risk such as heart attack, stroke and . Patient understood these risks and wanted to move forward with the procedure. He was signed and consented today. He is consented for operative fixation of his left femoral neck fracture. PLAN: Admission by hospitalist team N.p.o. for surgery on December 16, 2024 Nonweightbearing left lower extremity Ancef for perioperative antibiotics We will start aspirin postop day 1 for 6 weeks The patient had the treatment plan explained, questions answered and seemed satisfied with the plan. There were no apparent barriers to communication. The documentation in this note may have been entered with the assistance of computer voice recognition and dictation software. Therefore, it may contain unintended errors in text, spelling, punctuation, or grammar. Kiel Live MD Orthopedic Surgeon
--- NOTE | 2024-12-15 20:33 | HISTORY & PHYSICAL EXAMINATION ---
Chief Complaint Chief Complaint Chief Complaint: left hip pain History of Present Illness Admitted From Admitted From:: home History Obtained From History obtained from: patient and spouse History of Present Illness HPI Comment/Other: 74-year-old male who presents to the emergency department this evening after tripping backwards over his dogs and landing on his left hip. Immediate onset of left hip pain and inability ambulate. 5 weeks ago had a right total knee arthroplasty and has done relatively well from this is actively engaged in physical therapy and walking with a cane outside the home no supportive device inside the home Has a past medical history of coronary artery disease status post CABG in 2019. History of diabetes.Hemoglobin A1c 10/27/2024 was 6.8%. Since his knee surgery he has been struggling with some constipation. Last had a bowel movement this morning which was firm. Dr. Luther is his PCP he states that he wants to be full code and his Vikram is his surrogate decision-maker. Meds/Allgy Home Medications Ambulatory Orders Medication Instructions Recorded Confirmed pantoprazole 40 mg tablet,delayed 40 mg PO BIDAC 02/13/16 10/08/24 release aspirin 81 mg tablet,delayed 81 mg PO DAILY 02/15/16 10/08/24 release (Adult Low Dose Aspirin) ferrous sulfate 325 mg (65 mg 325 mg PO DAILY 06/11/16 04/23/24 iron) tablet cetirizine 10 mg tablet 10 mg PO DAILY 06/17/16 10/08/24 duloxetine 30 mg capsule,delayed 90 mg PO DAILY 06/05/23 10/08/24 release nitroglycerin 0.4 mg sublingual 0.4 mg sublingual [id number] PRN Pain 06/05/23 10/08/24 tablet 1-4 acetaminophen 500 mg tablet 500 mg PO TID PRN As Needed Per 03/13/24 10/08/24 Provider Orders coenzyme [id number] E 100 mg-5 1 ea PO DAILY 03/13/24 10/08/24 unit capsule (Co Q-10 (with Vit E)) isosorbide mononitrate 120 mg 120 mg PO DAILY 03/13/24 10/08/24 tablet,extended release 24 hr magnesium oxide 200 mg PO DAILY 03/13/24 10/09/24 ranolazine 1,000 mg 1,000 mg PO DAILY 03/13/24 10/08/24 tablet,extended release,12 hr diclofenac sodium 1 % topical gel 2 g topical QID 10/08/24 10/08/24 tirzepatide 7.5 mg/0.5 mL 7.5 mg (0.5 mL) subcut QWEEK #6.5 10/09/24 10/09/24 subcutaneous pen injector mL (Mounjaro) insulin lispro 100 unit/mL 12 - 18 unit subcut .ac meals TID 10/16/24 10/16/24 subcutaneous solution (Humalog U-100 Insulin) metoprolol tartrate 50 mg tablet 75 mg (1.5 x 50 mg) PO BID #270 10/16/24 10/16/24 tabs valacyclovir 1 gram tablet 2,000 mg PO DIRECTED 10/16/24 10/16/24 atorvastatin 80 mg tablet 80 mg PO DAILY #90 tabs 10/23/24 insulin glargine 100 unit/mL 27 - 36 unit (0.27 - 0.36 mL) 11/02/24 subcutaneous solution (Lantus subcut BID #60 mL U-100 Insulin) tamsulosin 0.4 mg capsule See Rx Instructions .Route 11/09/24 .COMPLEX #90 caps Allergies Allergies Allergy/AdvReac Type Severity Reaction Status Date / Time No Known Drug Allergies Allergy Verified 12/15/24 16:48 [facility] Active Problems All Active Problems (Updated 12/15/24 @ 18:45 by Pankaj Quezada MD) Contusion of scalp (Acute) Closed fracture of neck of left femur (Acute) Ground-level fall (Acute) Injury of hip and thigh (Acute) Coronary artery disease involving [place] coronary artery (Acute) Mixed hyperlipidemia (Acute) Paroxysmal atrial fibrillation (Acute 04/01/19) Essential hypertension (Acute) Type 2 diabetes mellitus with peripheral neuropathy (Acute 09/26/20) Acquired hypothyroidism (Acute) Obstructive sleep apnea on CPAP (Acute) BPH w urinary obs/LUTS (Acute) GERD (gastroesophageal reflux disease) (Acute) Depression (Acute 08/15/06) Osseous stenosis of neural canal of lumbar region (Acute 10/12/21) DJD (degenerative joint disease) of thoracic spine (Acute 05/25/21) Adenomatous colon polyp (Acute 09/14/14) Actinic skin damage (Acute) Bilateral primary osteoarthritis of knee (Acute) Atopic eczema (Acute) Herpes labialis (Acute 10/02/19) Medical History Medical History (Updated 12/15/24 @ 18:45 by Pankaj Quezada MD) Inflammatory bowel disease (Crohn's disease) possible Crohn's in 2017, not noted on future studies 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 Autoimmune hemolytic anemias (02/13/18) Acquired hemolytic anemia (02/17/16) Surgical History Surgical History H/O colonoscopy 04/2024, no polyps + sigmoid diverticulosis Fragmented bone 02/2024, removed from right anterior pisano H/O esophagogastroduodenoscopy 10/2022, mild chronic inflammation S/P ablation of atrial flutter 02/2022 S/P lumbar laminectomy 01/2022, L2-3 H/O endoscopy 06/2020, prominent papilla, o/w benign Arthrodesis present 11/2019, right foot, digists 2-5 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 Santana S/P cholecystectomy Status post Matt fundoplication H/O heart artery stent 11/2012, GE-RCA + proximal PDA 04/2015, GE-distal RCA H/O heart artery stent 2001, RCA x 2 stents Family History Family History Mother FH: early coronary artery disease Father FH: early coronary artery disease CVA (cerebral vascular accident) Social History Social History Smoking Status: Never smoker If you are a former smoker, when did you quit? (Date/Year): 1980 Number of Years Smoked: 24 How many cigarettes a day do you smoke? (20 cigarettes=1 Pk): 20 Second hand tobacco smoke exposure: No Do you dip or chew tobacco?: No Living arrangement: At home Marital Status: Living Condition: With spouse/s.o. 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 Service: Yes POLST Patient has POLST: No Review of Systems Constitutional Denies: Fatigue Eyes Denies: Change in vision Ears, nose, mouth, and throat Denies: Ear pain or Neck pain Cardiovascular Denies: Irregular heart rate, chest pain, palpitations, edema, swelling of feet/ankles or shortness of breath with exertion Respiratory Denies: Shortness of breath or Cough Gastrointestinal Reports: Constipation; Denies: Abdominal pain or Blood in stool Musculoskeletal Reports: Extremity pain; Denies: Back pain or Neck pain Integumentary/Breast Denies: Rash Endocrine Denies: Fatigue Prior Level of Functionality: 5 weeks status post right total knee arthroplasty. Doing well with recovering range of motion and function. Ambulates without assistive devices in the home and uses a cane when he goes out. Lives with his . They do not need any help in the home. He enjoys building [employer] Exam Constitutional normal general appearance and no apparent distress HENMT normocephalic and head/scalp atraumatic Eyes conjunctivae normal Neck/C-Spine visual inspection normal and trachea midline Lymph no lymphadenopathy noted Chest palpation of chest normal Respiratory breath sounds equal bilaterally, normal respiratory effort and no use of accessory muscles Cardiovascular normal heart rate noted, regular rhythm noted and peripheral pulses 2+ throughout Gastrointestinal abdomen normal to inspection and abdomen soft to palpation Extremities normal to inspection left leg is not shortened. 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 There was no presyncope or syncope leading to this fall. Has a minimally displaced left femoral neck fracture. Dr. Quezada contacted the orthopedic surgeon Dr. Mcintosh who will see the patient in consultation tomorrow morning and probably plan for hemiarthroplasty to follow. Patient will be made n.p.o. after midnight in preparation for possible procedure. I discussed the case with Dr. Quezada, medicine service will admit this patient and manage his medical problems in preparation for his left hip hemiarthroplasty. (2) Ground-level fall: Plan: Due to trip and fall. Patient denies frequent falls. He did not have any dizziness leading to this he did not have any associated loss of consciousness he denies any head injury. (3) Coronary artery disease involving [place] coronary artery: Plan: Status post coronary artery bypass graft in February 2019. He has done well after this. 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 He did well through his hospitalization for his right knee replacement 5 weeks ago. There is no reason to think that he has anything other than average anesthesia risk. Will continue his isosorbide and his metoprolol to tartrate 100 mg twice daily. Qualifiers: Associated angina: without angina [place] vs. transplanted heart: [place] heart Qualified Code(s): I25.10 - Atherosclerotic heart disease of [place] coronary artery without angina pectoris (4) Essential hypertension: Plan: Continue metoprolol and isosorbide. He is not hypertensive in the emergency department this evening. (5) Type 2 diabetes mellitus with peripheral neuropathy: Plan: Last hemoglobin A1c in October of this year at 6.8%. Showing good diabetes control. Looking at his home medications he is on lispro with meals, Mounjaro 7.5 mg weekly. We will hold Mounjaro while he is here in the hospital. We will use sliding scale insulin to control his blood sugars through the perioperative period. Goal glucose less than 180. (6) BPH w urinary obs/LUTS: Plan: history of this. Will need to watch for urinary retention in the perioperative period. (7) Paroxysmal atrial fibrillation: Plan: He is status post closure of left atrial appendage. There is no indication for anticoagulation in this patient and he does not take blood thinning medicines aside from aspirin 81 mg daily. Plan I have spent 76 minutes in the care of this patient today. This includes time [id number], review and ordering of diagnostic imaging and laboratory studies and consultation with other providers.. Monitoring the patient's signs symptoms, evaluation of medication effectiveness and patient's response to treatment. Lab Results Lab results reviewed: Yes 12/15/24 16:53 12/15/24 16:53 Core Measures Anticipated LOS I expect patient to be DC'd or transferred within 96 hours.: Yes Issues Hospital Issues and Management Plan: Left femoral neck fracture, being admitted for operative repair with consultation by orthopedic surgery. Plan for physical and Occupational Therapy evaluations on postoperative day 1 with subsequent discharged home if appropriate versus SNF placement for rehab. DVT/VTE - Prophylaxis VTE/DVT Device ordered at admit?: Yes VTE/DVT Prophylaxis med ordered at admit?: No Not Ordered - Medical Reason: Not indicated (Hold until postop)
[2024-12-15] MEDS ORDERED: ACETAMINOPHEN 325 MG TABLET PO PRN (20:49)
[2024-12-15] MEDS ORDERED: SODIUM CHLORIDE FLUSH 0.9% 10 ML SYRINGE IVP PRN (20:49)
[2024-12-15] MEDS ORDERED: HYDROmorphone 0.5 MG/0.5 ML SYRINGE IVP PRN (20:49)
[2024-12-15] MEDS: HYDROmorphone 0.5 MG/0.5 ML SYRINGE IVP PRN (20:59)
[2024-12-15] MEDS ORDERED: INSULIN GLARGINE-YFGN 300 UNIT/3 ML PEN SUBQ SCH (21:00)
[2024-12-15] MEDS: INSULIN LISPRO 300 UNIT/3 ML PEN SUBQ SCH (21:24)
[2024-12-15] MEDS: LACTATED RINGERS 1,000 ML IV SCH (21:35)
[2024-12-15] MEDS: ATORVASTATIN 40 MG TABLET PO SCH (22:10)
[2024-12-15] MEDS: METOPROLOL TARTRATE 25 MG TABLET PO SCH (22:10)
[2024-12-16] MEDS: oxyCODONE 5 MG TABLET PO PRN ×2 (00:47→18:24)
[2024-12-16] MEDS: SODIUM CHLORIDE FLUSH 0.9% 10 ML SYRINGE IVP SCH (00:51)
[2024-12-16] MEDS: ACETAMINOPHEN 500 MG TABLET PO PRN (02:54)
[2024-12-16] MEDS: ONDANSETRON 4 MG/2 ML VIAL IVP PRN (06:01)
[2024-12-16] MEDS: PANTOPRAZOLE 40 MG TABLET PO SCH (06:02)
[2024-12-16] MEDS ORDERED: ENOXAPARIN 40 MG/0.4 ML SYRINGE SUBQ SCH (09:00)
[2024-12-16] MEDS ORDERED: ASPIRIN CHEW 81 MG TABLET PO SCH (09:00)
--- NOTE | 2024-12-16 09:37 | ANESTHESIA PROCEDURE NOTE ---
Pre-Anesthesia VS, & Labs Diagnosis Surgical Diagnosis:: L Femoral Nex Fracture Procedure Procedure: Left Hip Pinning Vitals Vital Signs: Temp Pulse Resp BP Pulse Ox O2 Flow Rate 36.7 C 71 18 132/62 H 97 2 12/16/24 05:02 12/16/24 05:02 12/16/24 05:02 12/16/24 05:02 12/16/24 05:02 12/16/24 08:11 Height (in): 5 ft 10 in Weight (kg): 109 kg Body Mass Index: 34.4 BMI Classification: Obese NPO NPO: Other (Ice chips until 929) Lab Results Current Lab Results: Laboratory Tests 12/16/24 07:51: POC Whole Bld Glucose 135 12/15/24 20:48: POC Whole Bld Glucose 89 12/15/24 16:53: WBC 7.5, RBC 4.35 L, Hgb 13.0 L, Hct 39.7 L, MCV 91.3, MCH 29.9, MCHC 32.7, RDW 12.7, Plt Count 139, MPV 9.8, Neut # (Auto) 5.5, Lymph # (Auto) 0.8 L, [place] # (Auto) 0.7, Eos # (Auto) 0.4, Baso # (Auto) 0.1, Absolute Nucleated RBC 0.00, Nucleated RBC % 0.0, Sodium 133 L, Potassium 4.6 H, Chloride 101, Carbon Dioxide 26, Anion Gap 6.0, BUN 12, Creatinine 1.0, Estimated GFR (MDRD) 73 L, Glucose 91, Calcium 8.3 L, Total Bilirubin 0.7, AST 16, ALT 13, Alkaline Phosphatase 108, Total Protein 5.7 L, Albumin 3.8, Globulin 1.9 L, Albumin/Globulin Ratio 2.0 Lab results reviewed: Yes 12/15/24 16:53 12/15/24 16:53 Meds/Allgy Home Medications Ambulatory Orders Medication Instructions Recorded Confirmed pantoprazole 40 mg tablet,delayed 40 mg PO BIDAC 02/13/16 10/08/24 release aspirin 81 mg tablet,delayed 81 mg PO DAILY 02/15/16 10/08/24 release (Adult Low Dose Aspirin) ferrous sulfate 325 mg (65 mg 325 mg PO DAILY 06/11/16 04/23/24 iron) tablet cetirizine 10 mg tablet 10 mg PO DAILY 06/17/16 10/08/24 duloxetine 30 mg capsule,delayed 90 mg PO DAILY 06/05/23 10/08/24 release nitroglycerin 0.4 mg sublingual 0.4 mg sublingual [id number] PRN Pain 06/05/23 10/08/24 tablet 1-4 acetaminophen 500 mg tablet 500 mg PO TID PRN As Needed Per 03/13/24 10/08/24 Provider Orders coenzyme [id number] E 100 mg-5 1 ea PO DAILY 03/13/24 10/08/24 unit capsule (Co Q-10 (with Vit E)) isosorbide mononitrate 120 mg 120 mg PO DAILY 03/13/24 10/08/24 tablet,extended release 24 hr magnesium oxide 200 mg PO DAILY 03/13/24 10/09/24 ranolazine 1,000 mg 1,000 mg PO DAILY 03/13/24 10/08/24 tablet,extended release,12 hr diclofenac sodium 1 % topical gel 2 g topical QID 10/08/24 10/08/24 tirzepatide 7.5 mg/0.5 mL 7.5 mg (0.5 mL) subcut QWEEK #6.5 10/09/24 10/09/24 subcutaneous pen injector mL (Mounjaro) insulin lispro 100 unit/mL 12 - 18 unit subcut .ac meals TID 10/16/24 10/16/24 subcutaneous solution (Humalog U-100 Insulin) metoprolol tartrate 50 mg tablet 75 mg (1.5 x 50 mg) PO BID #270 10/16/24 10/16/24 tabs valacyclovir 1 gram tablet 2,000 mg PO DIRECTED 10/16/24 10/16/24 atorvastatin 80 mg tablet 80 mg PO DAILY #90 tabs 10/23/24 insulin glargine 100 unit/mL 27 - 36 unit (0.27 - 0.36 mL) 11/02/24 subcutaneous solution (Lantus subcut BID #60 mL U-100 Insulin) tamsulosin 0.4 mg capsule See Rx Instructions .Route 11/09/24 .COMPLEX #90 caps Allergies Allergies Allergy/AdvReac Type Severity Reaction Status Date / Time No Known Drug Allergies Allergy Verified 12/15/24 16:48 PFSH Active Problems All Active Problems Contusion of scalp (Acute) Closed fracture of neck of left femur (Acute) Ground-level fall (Acute) Injury of hip and thigh (Acute) Coronary artery disease involving [place] coronary artery (Acute) Mixed hyperlipidemia (Acute) Paroxysmal atrial fibrillation (Acute 04/01/19) Essential hypertension (Acute) Type 2 diabetes mellitus with peripheral neuropathy (Acute 09/26/20) Acquired hypothyroidism (Acute) Obstructive sleep apnea on CPAP (Acute) BPH w urinary obs/LUTS (Acute) GERD (gastroesophageal reflux disease) (Acute) Depression (Acute 08/15/06) Osseous stenosis of neural canal of lumbar region (Acute 10/12/21) DJD (degenerative joint disease) of thoracic spine (Acute 05/25/21) Adenomatous colon polyp (Acute 09/14/14) Actinic skin damage (Acute) Bilateral primary osteoarthritis of knee (Acute) Atopic eczema (Acute) Herpes labialis (Acute 10/02/19) Medical History Medical History Inflammatory bowel disease (Crohn's disease) possible Crohn's in 2017, not noted on future studies 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 Autoimmune hemolytic anemias (02/13/18) Acquired hemolytic anemia (02/17/16) Surgical History Surgical History H/O colonoscopy 04/2024, no polyps + sigmoid diverticulosis Fragmented bone 02/2024, removed from right anterior pisano H/O esophagogastroduodenoscopy 10/2022, mild chronic inflammation S/P ablation of atrial flutter 02/2022 S/P lumbar laminectomy 01/2022, L2-3 H/O endoscopy 06/2020, prominent papilla, o/w benign Arthrodesis present 11/2019, right foot, digists 2-5 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 Santana S/P cholecystectomy Status post Matt fundoplication H/O heart artery stent 11/2012, GE-RCA + proximal PDA 04/2015, GE-distal RCA H/O heart artery stent 2001, RCA x 2 stents Family History Family History Mother FH: early coronary artery disease Father FH: early coronary artery disease CVA (cerebral vascular accident) Social History Social History Smoking Status: Never smoker If you are a former smoker, when did you quit? (Date/Year): 1980 Number of Years Smoked: 24 How many cigarettes a day do you smoke? (20 cigarettes=1 Pk): 20 Second hand tobacco smoke exposure: No Do you dip or chew tobacco?: No Living arrangement: At home Marital Status: Living Condition: With spouse/s.o. 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
[2024-12-16] MEDS: polyethylene glycoL 3350 17 GM PACKET PO SCH (09:49)
[2024-12-16] MEDS: TAMSULOSIN 0.4 MG CAPSULE PO SCH (09:52)
[2024-12-16] MEDS: DULoxetine 30 MG CAPSULE PO SCH (09:52)
[2024-12-16] MEDS: ISOSORBIDE MONONITRATE ER 30 MG TABLET PO SCH (09:53)
[2024-12-16] MEDS ORDERED: LIDOCAINE 1%-EPI 1:100000 20 ML MDV ONE (11:10)
[2024-12-16] MEDS ORDERED: BUPIVACAINE 0.25% PF 10 ML VIAL ONE (11:11)
[2024-12-16] MEDS ORDERED: BACITRACIN ZINC OINT 1 PACKET TOP ONE (11:11)
[2024-12-16] MEDS ORDERED: fentaNYL 100 MCG/2 ML VIAL ONE (11:35)
[2024-12-16] MEDS ORDERED: PROPOFOL 200 MG/20 ML VIAL IVP ONE (11:35)
[2024-12-16] MEDS ORDERED: ePHEDrine 50 MG/ML VIAL IVP ONE (12:20)
[2024-12-16] MEDS ORDERED: ceFAZolin 1 GM VIAL ONE (12:26)
[2024-12-16] MEDS ORDERED: TRANEXAMIC ACID 1,000 MG/10 ML VIAL ONE (12:26)
[2024-12-16] MEDS ORDERED: ONDANSETRON 4 MG/2 ML VIAL ONE (13:15)
[2024-12-16] MEDS ORDERED: ONDANSETRON 4 MG/2 ML VIAL IVP PRN (13:27)
[2024-12-16] MEDS ORDERED: fentaNYL 100 MCG/2 ML VIAL IVP PRN (13:27)
[2024-12-16] MEDS ORDERED: MORPHINE 2 MG/ML CARPUJECT IVP PRN (13:27)
[2024-12-16] MEDS ORDERED: HYDROmorphone 0.5 MG/0.5 ML SYRINGE IVP PRN (13:27)
[2024-12-16] MEDS ORDERED: ATROPINE ABBOJECT 1 MG/10 ML SYRINGE IVP PRN (13:27)
[2024-12-16] MEDS ORDERED: NALOXONE 0.4 MG/ML VIAL IVP PRN (13:27)
[2024-12-16] MEDS ORDERED: METOCLOPRAMIDE 10 MG/2 ML VIAL IVP PRN (13:27)
[2024-12-16] MEDS ORDERED: ePHEDrine 50 MG/ML VIAL IVP PRN (13:27)
--- NOTE | 2024-12-16 13:30 | PROVIDER PROGRESS NOTE ---
Subjective Prog Note Date Prog Note Date: 12/16/24 Subjective Pt reports feeling: No change Current Medications Current Medications Current Medications: Current Medications Generic Name Dose Route Start Last Admin Trade Name Freq PRN Reason Stop Dose Admin Acetaminophen 650 mg 12/15/24 20:49 Acetaminophen 325 Mg Tablet PO Q4HR PRN Pain 1 to 4, or Fever Atorvastatin Calcium 80 mg 12/15/24 21:00 12/15/24 22:10 Atorvastatin 40 Mg Tablet PO 80 mg QPM MELISSA Administration Duloxetine HCl 90 mg 12/16/24 09:00 12/16/24 09:52 Duloxetine 30 Mg Capsule PO 90 mg DAILY MELISSA Administration Hydromorphone HCl 0.5 mg 12/15/24 20:49 12/16/24 07:55 Hydromorphone 0.5 Mg/0.5 Ml Syringe IVP 0.5 mg Q2H PRN Administration Severe Pain (Level 7-10) Lactated Ringer's 1,000 mls @ 100 mls/hr 12/15/24 20:49 12/16/24 06:05 Lr IV 100 mls/hr .Q10H MELISSA Administration Insulin Human Lispro 3 - 11 unit 12/15/24 21:00 12/16/24 12:57 Insulin Lispro 300 Unit/3 Ml Pen SUBQ Not Given 0800,1200,1700,2100 [facility] Protocol Isosorbide Mononitrate 120 mg 12/16/24 09:00 12/16/24 09:53 Isosorbide Mononitrate Er 30 Mg Tablet PO Not Given DAILY [facility] Metoprolol Tartrate 75 mg 12/15/24 21:00 12/16/24 09:50 Metoprolol Tartrate 25 Mg Tablet PO 75 mg BID MELISSA Administration Ondansetron HCl 4 mg 12/15/24 18:47 12/16/24 06:01 Ondansetron 4 Mg/2 Ml Vial IVP 4 mg Q6HR PRN Administration Nausea / Vomiting Ondansetron HCl 4 mg 12/15/24 20:49 Ondansetron 4 Mg/2 Ml Vial IVP Q6HR PRN Nausea / Vomiting Oxycodone HCl 10 mg 12/15/24 18:47 12/16/24 09:50 Oxycodone 5 Mg Tablet PO 10 mg Q4H PRN Administration Moderate to Severe pain (4-10) Pantoprazole Sodium 40 mg 12/16/24 07:00 12/16/24 06:02 Pantoprazole 40 Mg Tablet PO 40 mg QDAC MELISSA Administration Polyethylene Glycol 17 gm 12/16/24 10:00 12/16/24 09:49 Polyethylene Glycol 3350 17 Gm Packet PO 17 gm DAILY MELISSA Administration Sodium Chloride 10 ml 12/15/24 20:49 Sodium Chloride Flush 0.9% 10 Ml Syringe IVP PRN PRN NEEDED PER PROVIDER ORDERS Sodium Chloride 10 ml 12/16/24 01:00 12/16/24 09:52 Sodium Chloride Flush 0.9% 10 Ml Syringe IVP Not Given 0100,0900,1700 MELISSA Tamsulosin HCl 0.4 mg 12/16/24 09:00 12/16/24 09:52 Tamsulosin 0.4 Mg Capsule PO 0.4 mg DAILY MELISSA Administration Objective Vital Signs/Intake & Output Reviewed Vital Signs: Yes Vital Signs: Vital Signs x48h Temp Pulse Pulse Resp BP BP Pulse Ox 12/16/24 09:58 16 131/62 H 98 12/16/24 09:50 66 117/60 12/16/24 09:00 36.4 C L 65 20 117/60 96 12/16/24 08:11 O2 Flow Rate 12/16/24 09:58 12/16/24 09:50 12/16/24 09:00 2 12/16/24 08:11 2 Intake & Output: Intake & Output 12/13/24 12/14/24 12/15/24 12/16/24 23:59 23:59 23:59 23:59 Intake Total 1060 / 1060 1000 / 1000 Output Total 850 / 850 590 / 590 Balance 210 / 210 410 / 410 Weight (kg) 111 kg 109 kg Objective General Appearance: positive No acute distress and Alert Eyes Bilateral: positive Normal inspection ENT: positive No signs of dehydration Neck: positive No JVD Respiratory: positive Chest non-tender and No respiratory distress Cardiovascular: positive Regular rate & rhythm Abdomen: positive Non-tender Skin: positive Color nml Extremities: positive Other (Pain in left hip) Neurologic/Psychiatric: positive Oriented x3 Lab Results 12/15/24 16:53 12/15/24 16:53 Other Labs: Lab Results x24hrs 12/16/24 12/15/24 12/15/24 Range/Units 07:51 20:48 16:53 WBC 7.5 (4.8-10.8) x10^3/uL RBC 4.35 L (4.70-6.10) 10^6/uL Hgb 13.0 L (14.0-18.0) g/dL Hct 39.7 L (42.0-52.0) % MCV 91.3 (80.0-94.0) fL MCH 29.9 (27.0-31.0) pg MCHC 32.7 (32.0-36.0) g/dL RDW 12.7 (12.0-15.0) % Plt Count 139 (130-450) 10^3/uL MPV 9.8 (7.4-11.4) fL Neut # (Auto) 5.5 (1.5-6.6) 10^3/uL Lymph # (Auto) 0.8 L (1.5-3.5) 10^3/uL Crisp # (Auto) 0.7 (0.0-1.0) 10^3/uL Eos # (Auto) 0.4 (0.0-0.7) 10^3/uL Baso # (Auto) 0.1 (0.0-0.1) 10^3/uL Absolute Nucleated RBC 0.00 x10^3/uL Nucleated RBC % 0.0 /100WBC Sodium 133 L (135-145) mmol/L Potassium 4.6 H (3.5-4.5) mmol/L Chloride 101 (101-111) mmol/L Carbon Dioxide 26 (21-32) mmol/L Anion Gap 6.0 (6-13) BUN 12 (6-20) mg/dL Creatinine 1.0 (0.6-1.3) mg/dL Estimated GFR (MDRD) 73 L (>89) Glucose 91 (74-104) mg/dL POC Whole Bld Glucose 135 89 (70-100) mg/dL Calcium 8.3 L (8.5-10.3) mg/dL Total Bilirubin 0.7 (0.2-1.0) mg/dL AST 16 (10-42) IU/L ALT 13 (10-60) IU/L Alkaline Phosphatase 108 (42-121) IU/L Total Protein 5.7 L (6.4-8.9) g/dL Albumin 3.8 (3.2-5.5) g/dL Globulin 1.9 L (2.1-4.2) g/dL Albumin/Globulin Ratio 2.0 (1.0-2.2) Assessment/Plan Problem List (1) Closed fracture of neck of left femur: Impression: Mechanical ground-level fall with minimally displaced left femoral neck fracture. Ortho on board. I am adding Tylenol 1 g 3 times daily in addition to his hydromorphone 0.5 mg IV push every 2 hours as needed and monitoring respiratory status to ensure he does not have respiratory depression. Plan for OR today (2) Ground-level fall: Impression: Mechanical fall, denies dizziness, alteration in consciousness and head injury (3) Coronary artery disease involving [place] coronary artery: Impression: CABG February 2019. Follows cardiology in [place]. Chronic, continue home regimen isosorbide metoprolol Qualifiers: Associated angina: without angina [place] vs. transplanted heart: [place] heart Qualified Code(s): I25.10 - Atherosclerotic heart disease of [place] coronary artery without angina pectoris (4) Essential hypertension: Impression: Metoprolol, isosorbide as above (5) Type 2 diabetes mellitus with peripheral neuropathy: Impression: A1c 6.8. He takes lispro with meals and Mounjaro weekly. Holding Mounjaro while he is in the hospital. SSI (6) Paroxysmal atrial fibrillation: Impression: Continue metoprolol. Status post closure of left atrial appendage, so anticoagulation necessary
--- NOTE | 2024-12-16 13:48 | OPERATIVE REPORT ---
Operative Report General Admit Date: 12/15/24 Procedure Data: Operation Date: 12/16/24 12:00 Proposed Procedures p Hip Pinning(Left) - Kiel Live MD Actual Procedures p Hip Pinning(Left) - Kiel Live MD Anesthesia Type General Case Staff Anesthesia Provider: Sera Reilly Anesthesia Provider: SRNA. ANNETTE Assisting Provider: Oxana Dias Assisting Provider: Hazel Gonzales Case Times Into Recovery: 12/16/24 13:21 Procedure Start: 12/16/24 12:30 Procedure End: 12/16/24 13:15 Time out: 12/16/24 12:28 Implants SCREW [id number] SS JOSE 32MM Other Other Information/Narrative: Op Note Date of Procedure: 12/16/24 Pre-Op Diagnosis:LEFT Femoral Neck Fracture Post-Op Diagnosis: LEFT Femoral Neck Fracture Procedure Closed reduction and cannulated screw fixation of the femoral neck fracture Surgeon: Kiel Live MD Co-Surgeon: Oxana Dias DO Career Services Officer in OR: Hazel Hampton. PA Physician Career Services Officer was used throughout the entirety of the case. This operation could not have been safely performed (without compromising the technical results or length of the procedure) without the assistance of a skilled surgical specialist. A surgical specialist was medically necessary for room set up, patient positioning, draping, retraction, visualization, reduction, fixation and closure. They were essential for the success of the case. Anesthesia Type: General EBL: 25 cc Specimens Removed: None Complications: None Implants/Grafts: 3 7.0mm Cannulated Screws Drains: No lines, drains, or airways are recorded for this episode. Findings: Narrative: The patient was taken to the OR and administered anesthetic and preoperative antibiotics. They were placed on the fracture table with LEFT leg in traction boot. SCD device placed on the nonoperative leg and placed with the hip flexed above the operative leg. Using traction and appropriate rotation hip was reduced to near anatomic position on fluoroscopic views. Standard prep and drape was done. A standard timeout was performed. A K wire was laid over the anterior hip and fluoroscopy was utilized to determine the location of the lateral incision. A 2 inch incision was made through the skin in line with the planned trajectory of guidewires over the center of the lateral proximal femur. IT band was incised sharply. 3 guidewires for cannulated screws were then placed taking care to stay above the lesser trochanter. The first was placed along the inferior neck. Two additional guidewires were placed superiorly along the periphery of the neck. Appropriate positions were confirmed on fluoroscopic AP and lateral views. The wires were measured. The cortex was drilled for each screw and screws placed. Final x-rays confirmed satisfactory position of the implants and maintenance of fracture position. The wound was irrigated and closed with 2-0 Vicryl in the dermis and 3-0 Nylon for the skin. A sterile dressing was applied. Patient was then transferred to recovery room bed in stable condition. Plan: Xrays in PACU. Weight Bearing as tolerated. DVT prophylaxis. Physical therapy. Follow-up in 2 weeks for wound check. Kiel Live MD
[2024-12-16] MEDS ORDERED: LACTATED RINGERS 1,000 ML IV SCH (14:00)
--- NOTE | 2024-12-16 14:27 | ANESTHESIA POST OP EVALUATION ---
Anesthesia Post Eval Post Anesthesia Eval Vitals: Last Vital Signs Temp 36.7 C 12/16/24 14:21 Pulse 74 12/16/24 14:21 Resp 18 12/16/24 14:21 BP 138/67 H 12/16/24 14:21 Pulse Ox 92 12/16/24 14:21 O2 Flow Rate 3 12/16/24 14:21 CV Function Including HR & BP: Stable Pain Control: Satisfactory Nausea & Vomiting: Negative Mental Status: Baseline Respiratory Status: Airway Patent Hydration Status: Satisfactory Anesthesia Complications: None
--- NOTE | 2024-12-16 14:33 | XRAY Report ---
PROCEDURE: XR Hip w/Pelvis 1V LT INDICATIONS: post operative imaging TECHNIQUE: AP pelvis with lateral view(s) of the hip(s). COMPARISON: CT pelvis dated 12/15/2024. FINDINGS: Bones: Images demonstrate placement of 3 cannulated screws bridging a left femoral neck fracture. No radiographic evidence of complications. Soft tissues: No suspicious soft tissue calcifications or masses. IMPRESSION: ORIF, left femoral neck fracture. Reviewed by: Edgar Patterson MD on 12/16/2024 2:32 PM PST Approved by: Edgar Patterson MD on 12/16/2024 2:32 PM PST Station ID: [id number]
--- NOTE | 2024-12-16 16:59 | PHARMACY PROGRESS NOTE ---
Best Possible Medication History Admit Date and Time: 12/15/241939 Home Medications Medication Instructions Recorded Confirmed Type pantoprazole 40 mg tablet,delayed 40 mg PO QDAC 02/13/16 12/16/24 History release aspirin 81 mg tablet,delayed 81 mg PO DAILY 02/15/16 12/16/24 History release (Adult Low Dose Aspirin) ferrous sulfate 325 mg (65 mg 325 mg PO DAILY 06/11/16 12/16/24 History iron) tablet cetirizine 10 mg tablet 10 mg PO DAILY 06/17/16 12/16/24 History duloxetine 30 mg capsule,delayed 30 mg PO HS 06/05/23 12/16/24 History release nitroglycerin 0.4 mg sublingual 0.4 mg sublingual [id number] PRN Pain 06/05/23 12/16/24 History tablet 1-4 acetaminophen 500 mg tablet 500 mg PO TID PRN As Needed Per 03/13/24 12/16/24 History Provider Orders coenzyme [id number] E 100 mg-5 1 ea PO DAILY 03/13/24 12/16/24 History unit capsule (Co Q-10 (with Vit E)) isosorbide mononitrate 120 mg 120 mg PO DAILY 03/13/24 12/16/24 History tablet,extended release 24 hr magnesium oxide 200 mg PO DAILY 03/13/24 12/16/24 History diclofenac sodium 1 % topical gel 2 g topical QID PRN pain 10/08/24 12/16/24 History tirzepatide 7.5 mg/0.5 mL 7.5 mg (0.5 mL) subcut QWEEK #6.5 10/09/24 12/16/24 Rx subcutaneous pen injector mL (Tomunmauricio) metoprolol tartrate 50 mg tablet 75 mg (1.5 x 50 mg) PO BID #270 10/16/24 12/16/24 Rx tabs valacyclovir 1 gram tablet 2,000 mg PO DIRECTED 10/16/24 12/16/24 History tamsulosin 0.4 mg capsule See Rx Instructions .Route 11/09/24 12/16/24 Rx .COMPLEX #90 caps atorvastatin 80 mg tablet 80 mg PO HS 12/16/24 12/16/24 History docusate sodium 100 mg capsule 100 mg PO DAILY PRN constipation 12/16/24 0 12/16/24 History duloxetine 60 mg capsule,delayed 60 mg PO DAILY 12/16/24 12/16/24 History release insulin glargine 100 unit/mL (3 27 - 36 unit subcut BID 12/16/24 12/16/24 History mL) subcutaneous pen (Lantus Solostar U-100 Insulin) insulin lispro 100 unit/mL 12 - 18 unit subcut TIDWM 12/16/24 12/16/24 History subcutaneous pen (Humalog KwikPen (U-100) Insulin) oxycodone-acetaminophen 5 mg-325 1 tab PO Q6H PRN pain 12/16/24 12/16/24 History mg tablet ranolazine 500 mg tablet,extended 500 mg PO BID 12/16/24 12/16/24 History release,12 hr Processed by: Pharmacy (Medication Reconciliation completed by [employer] AttendantRivas) Medications reviewed in ED?: No Medication History completed: Yes Patient Interview: Completed Secondary Source(s): Pharmacy records and Insurance records [facility] Statement: As the person ultimately responsible for medication therapy, providers are able to order a medication from an existing home medication list in [facility] via the "Reconcile Routine" prior to Confirmation of that medication by learning support aide. Such practice is discouraged except when the physician, in their clinical judgment, deems that a medical need exists for a medication without regard to previous use.
[2024-12-16] MEDS: ACETAMINOPHEN 500 MG TABLET PO SCH (17:15)
[2024-12-16] MEDS: ceFAZolin (2G) 2 GM in SODIUM CHLORIDE 0.9% MINIBAG 100 ML IV SCH (17:16)
[2024-12-16] MEDS: KETOROLAC 15 MG/ML VIAL IVP STA (17:26)
[2024-12-16] MEDS: CYCLOBENZAPRINE 10 MG TABLET PO SCH (17:26)
[2024-12-16] MEDS: LIDOCAINE PATCH 4% TOP SCH (17:26)
[2024-12-16] MEDS: DOCUSATE SODIUM 100 MG CAPSULE PO SCH (20:56)
[2024-12-16] MEDS ORDERED: ASPIRIN EC 81 MG TABLET PO SCH (21:00)
[2024-12-17] MEDS: oxyCODONE 5 MG TABLET PO PRN (03:38)
[2024-12-17] MEDS: ASPIRIN EC 81 MG TABLET PO SCH (08:52)
[2024-12-17 10:36] LABS: HCT - HEMATOCRIT 37.5 % (42.0-52.0); HGB - HEMOGLOBIN 12.1 g/dL (14.0-18.0); MEAN CORPUSCULAR HEMOGLOBIN 29.7 pg (27.0-31.0); MEAN CORPUSCULAR HGB CONC 32.3 g/dL (32.0-36.0); MEAN CORPUSCULAR VOLUME 91.9 fL (80.0-94.0); MEAN PLATELET VOLUME 9.8 fL (7.4-11.4); RED BLOOD COUNT 4.08 10^6/uL (4.70-6.10); RED CELL DISTRIBUTION WIDTH 12.8 % (12.0-15.0)
[2024-12-17 10:48] LABS: CALCIUM 7.8 mg/dL (8.5-10.3); POTASSIUM 4.2 mmol/L (3.5-4.5)
[2024-12-17] MEDS: SODIUM CHLORIDE 0.9% 1,000 ML IV ONE (11:39)
[2024-12-17] MEDS: KETOROLAC 15 MG/ML VIAL IVP STA (11:40)
--- NOTE | 2024-12-17 13:18 | PT Plan of Care ---
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 Autoimmune hemolytic anemias (02/13/18) Acquired hemolytic anemia (02/17/16) Surgical History (Updated 10/16/24 @ 16:47 by Regino Erazo MD) H/O colonoscopy 04/2024, no polyps + sigmoid diverticulosis Fragmented bone 02/2024, removed from right anterior pisano H/O esophagogastroduodenoscopy 10/2022, mild chronic inflammation S/P ablation of atrial flutter 02/2022 S/P lumbar laminectomy 01/2022, L2-3 H/O endoscopy 06/2020, prominent papilla, o/w benign Arthrodesis present 11/2019, right foot, digists 2-5 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 Santana S/P cholecystectomy Status post Matt fundoplication H/O heart artery stent 11/2012, GE-RCA + proximal PDA 04/2015, GE-distal RCA H/O heart artery stent 2001, RCA x 2 stents Balance/ Functional Results Sitting Balance Fair Standing Balance Poor Assessment Assessment Pt is a 74yo M referred for PT eval s/p L hip screw fixation performed 12/16/24. Pt had L femoral neck fx after tripping over dogs at home . Of note, pt had RTKA approx 5 wks ago performed by Dr Santana; has been seen by OPPT for post-TKA rehab as prescribed. Pt reports he had been walking without an AD and ROM and strength were improving with PT. Upon PT eval today, pt reports minimal pain at rest, vitals stable and agreeable to participate. Transfers to EOB with modAx2; respiratory rate elevated and pt diaphoretic but pt denies adverse symptoms. PT reviews TTWB precautions with pt and pt expresses understanding. RLE strength and mobility nearly WNL aside from R knee 5-100 deg and healing post-TKA incision. Pt able to complete partial STS w/ maxAx2 but unable to maintain standing d/t weakness and difficulty maintaining TTWB. Required maxAx2-3 to dependent transfer to b/s chair. At end of session pt reports increased 8/10 pain. Per nsg report pt only tolerated sitting up in chair approx 30 min (despite legs elevated, pain meds on board, ice packs in place). Pt will benefit from continued PT in acute setting to improve functional mobility and safety. When medically clear PT rec dc to SNF as pt is unable to stand and cannot transfer without maxAx2. Patient/ Family Goals Patient/Family Goals go home Goals Improve bed mobility to: Contact Guard Improve supine to sit to: Contact Guard Improve sit to stand to: Moderate Assist Improve pivot transfer ability Moderate Assist to: Improve sit to supine to: Minimal Assist Improve gait ability to: Mod A Assistive Device Used: Front Wheeled Walker Other gait goal: pt able to transfer in/out of for longer distance mobility while TTWB precautions in place Improve Lower Extremity ROM to WFL : [Bilateral] Improve Lower Extremity ROM to WFL : Improve Lower Extremity Good Strength to: [Bilateral] Improve Lower Extremity Good Strength to: Improve Sitting Balance to: Good Improve Standing Balance to: Fair PT Plan of Care Frequency 1-2x/day Duration Until goals are met Discharge Recommendations Discharge Location Fdc Facility DC Equipment Recommended Front wheeled walker,Wheelchair Other has own FWW in room Transport Needs at Discharge B.L.S Other BLS d/t recent surgeries, unhealed fx's
--- NOTE | 2024-12-17 14:29 | PROVIDER PROGRESS NOTE ---
Subjective Prog Note Date Prog Note Date: 12/17/24 Subjective Pt reports feeling: No change Current Medications Current Medications Current Medications: Current Medications Generic Name Dose Route Start Last Admin Trade Name Wilfredoq PRN Reason Stop Dose Admin Acetaminophen 1,000 mg 12/16/24 14:42 12/17/24 13:06 Acetaminophen 500 Mg Tablet PO 1,000 mg TID MELISSA Administration Aspirin 81 mg 12/17/24 09:00 12/17/24 08:52 Aspirin Ec 81 Mg Tablet PO 81 mg BID MELISSA Administration Atorvastatin Calcium 80 mg 12/17/24 21:00 Atorvastatin 40 Mg Tablet PO HS [facility] Cetirizine HCl 10 mg 12/18/24 09:00 Cetirizine 10 Mg Tablet PO DAILY [facility] Cyclobenzaprine HCl 10 mg 12/16/24 18:00 12/17/24 13:06 Cyclobenzaprine 10 Mg Tablet PO 10 mg TID [facility] Administration Docusate Sodium 100 mg 12/16/24 21:00 12/17/24 08:52 Docusate Sodium 100 Mg Capsule PO 100 mg BID [facility] Administration Duloxetine HCl 30 mg 12/17/24 21:00 Duloxetine 30 Mg Capsule PO HS [facility] Duloxetine HCl 60 mg 12/18/24 09:00 Duloxetine 60 Mg Capsule PO DAILY [facility] Insulin Human Lispro 3 - 11 unit 12/15/24 21:00 12/17/24 11:41 Insulin Lispro 300 Unit/3 Ml Pen SUBQ 5 unit 0800,1200,1700,2100 [facility] Administration Protocol Isosorbide Mononitrate 120 mg 12/16/24 09:00 12/17/24 08:53 Isosorbide Mononitrate Er 30 Mg Tablet PO 120 mg DAILY MELISSA Administration Lidocaine 1 patch 12/16/24 17:15 12/17/24 08:53 Lidocaine Patch 4% TOP 1 patch DAILY [facility] Administration Metoprolol Tartrate 75 mg 12/15/24 21:00 12/17/24 09:45 Metoprolol Tartrate 25 Mg Tablet PO Not Given BID [facility] Ondansetron HCl 4 mg 12/15/24 20:49 Ondansetron 4 Mg/2 Ml Vial IVP Q6HR PRN Nausea / Vomiting Oxycodone HCl 5 mg 12/16/24 17:48 12/17/24 13:06 Oxycodone 5 Mg Tablet PO 5 mg Q4HR PRN Administration Moderate Pain (Level 4-6) Oxycodone HCl 10 mg 12/17/24 02:33 12/17/24 10:43 Oxycodone 5 Mg Tablet PO 10 mg Q6HR PRN Administration PAIN >8 Pantoprazole Sodium 40 mg 12/18/24 07:00 Pantoprazole 40 Mg Tablet PO QDAC [facility] Ranolazine 500 Mg 1 each 12/17/24 21:00 Tablet Extended PO Release 12 Hr BID [facility] Polyethylene Glycol 17 gm 12/16/24 10:00 12/17/24 08:51 Polyethylene Glycol 3350 17 Gm Packet PO 17 gm DAILY [facility] Administration Sodium Chloride 10 ml 12/15/24 20:49 Sodium Chloride Flush 0.9% 10 Ml Syringe IVP PRN PRN NEEDED PER PROVIDER ORDERS Sodium Chloride 10 ml 12/16/24 01:00 12/17/24 09:13 Sodium Chloride Flush 0.9% 10 Ml Syringe IVP Not Given 0100,0900,1700 [facility] Tamsulosin HCl 0.4 mg 12/16/24 09:00 12/17/24 08:52 Tamsulosin 0.4 Mg Capsule PO 0.4 mg DAILY [facility] Administration Tamsulosin HCl 0.4 mg 12/18/24 09:00 Tamsulosin 0.4 Mg Capsule PO DAILY [facility] Objective Vital Signs/Intake & Output Reviewed Vital Signs: Yes Vital Signs: Vital Signs x48h Temp Pulse Pulse Pulse Resp BP BP 12/17/24 12:17 36.5 C 81 16 120/51 L 12/17/24 08:55 83 76 124/66 12/17/24 08:51 36.6 C 73 16 BP BP Pulse Ox 12/17/24 12:17 92 12/17/24 08:55 138/61 H 12/17/24 08:51 128/56 L 100 Intake & Output: Intake & Output 12/14/24 12/15/24 12/16/24 12/17/24 23:59 23:59 23:59 23:59 Intake Total 1060 / 1060 2720 / 2720 3080 / 3080 Output Total 850 / 850 1690 / 1690 325 / 325 Balance 210 / 210 1030 / 1030 2755 / 2755 Weight (kg) 111 kg 109 kg Objective General Appearance: positive No acute distress and Alert Eyes Bilateral: positive Normal inspection ENT: positive No signs of dehydration Neck: positive No JVD Respiratory: positive Chest non-tender and No respiratory distress Cardiovascular: positive Regular rate & rhythm Abdomen: positive Non-tender Skin: positive Color nml Extremities: positive Other (Pain in left hip) Neurologic/Psychiatric: positive Oriented x3 Lab Results 12/17/24 10:30 12/17/24 10:30 Other Labs: Lab Results x24hrs 12/17/24 12/17/24 12/17/24 Range/Units 11:25 10:30 07:43 WBC 8.0 (4.8-10.8) x10^3/uL RBC 4.08 L (4.70-6.10) 10^6/uL Hgb 12.1 L (14.0-18.0) g/dL Hct 37.5 L (42.0-52.0) % MCV 91.9 (80.0-94.0) fL MCH 29.7 (27.0-31.0) pg MCHC 32.3 (32.0-36.0) g/dL RDW 12.8 (12.0-15.0) % Plt Count 98 L (130-450) 10^3/uL MPV 9.8 (7.4-11.4) fL Sodium 128 L (135-145) mmol/L Potassium 4.2 (3.5-4.5) mmol/L Chloride 96 L (101-111) mmol/L Carbon Dioxide 27 (21-32) mmol/L Anion Gap 5.0 L (6-13) BUN 10 (6-20) mg/dL Creatinine 1.0 (0.6-1.3) mg/dL Estimated GFR (MDRD) 73 L (>89) Glucose 206 H (74-104) mg/dL POC Whole Bld Glucose 185 147 (70-100) mg/dL Calcium 7.8 L (8.5-10.3) mg/dL 12/16/24 12/16/24 Range/Units 20:46 16:48 WBC (4.8-10.8) x10^3/uL RBC (4.70-6.10) 10^6/uL Hgb (14.0-18.0) g/dL Hct (42.0-52.0) % MCV (80.0-94.0) fL MCH (27.0-31.0) pg MCHC (32.0-36.0) g/dL RDW (12.0-15.0) % Plt Count (130-450) 10^3/uL MPV (7.4-11.4) fL Sodium (135-145) mmol/L Potassium (3.5-4.5) mmol/L Chloride (101-111) mmol/L Carbon Dioxide (21-32) mmol/L Anion Gap (6-13) BUN (6-20) mg/dL Creatinine (0.6-1.3) mg/dL Estimated GFR (MDRD) (>89) Glucose (74-104) mg/dL POC Whole Bld Glucose 185 144 (70-100) mg/dL Calcium (8.5-10.3) mg/dL Assessment/Plan Problem List (1) Closed fracture of neck of left femur: Impression: Mechanical ground-level fall with minimally displaced left femoral neck fracture. Ortho on board. I am adding Tylenol 1 g 3 times daily in addition to his hydromorphone 0.5 mg IV push every 2 hours as needed and monitoring respiratory status to ensure he does not have respiratory depression. Plan for OR today 12/17/2024: POD 1. Continue Tylenol and Flexeril scheduled. We have increased his dose of oxycodone to 10 mg. Discussed case with Ortho today, they recommend 1 more day and PT eval which have already ordered. I have restarted his duloxetine. He reports his pain is a 6 today. I explained to him that we would not be able to get rid of all of his pain, but we will try and keep managed as best as possible. I am adding 0.2 mg Dilaudid every 2 hours as needed (2) Ground-level fall: Impression: Mechanical fall, denies dizziness, alteration in consciousness and head injury (3) Coronary artery disease involving [place] coronary artery: Impression: CABG February 2019. Follows cardiology in [place]. Chronic, continue home regimen isosorbide metoprolol Qualifiers: [place] vs. transplanted heart: [place] heart Associated angina: without angina Qualified Code(s): I25.10 - Atherosclerotic heart disease of [place] coronary artery without angina pectoris (4) Essential hypertension: Impression: Metoprolol, isosorbide as above (5) Type 2 diabetes mellitus with peripheral neuropathy: Impression: A1c 6.8. He takes lispro with meals and Mounjaro weekly. Holding Mounjaro while he is in the hospital. SSI Restarted home dose Cymbalta (6) Paroxysmal atrial fibrillation: Impression: Continue metoprolol. Status post closure of left atrial appendage, so anticoagulation necessary
[2024-12-17] MEDS: HYDROmorphone 0.5 MG/0.5 ML SYRINGE IVP PRN (14:45)
--- NOTE | 2024-12-17 15:04 | POST OP PROGRESS NOTE ---
Subjective General Admit Date: 12/15/24 Procedure Date: 12/16/24 Post Op Days: 1 Procedure Performed: Closed reduction percutaneous pinning for left femoral neck fracture Other Other Information/Narrative: Patient alert, semi recumbent in bed He reports persistent left hip and right knee pain He was unable to stand without the assist of physical therapy Ortho Surgical Progress Note Problem List Problem List: 74-year-old male with a past medical history of hypertension, diabetes mellitus type 2 with peripheral neuropathy, hypothyroidism, obstructive sleep apnea, GERD and coronary artery disease status post CABG is postoperative day 1 from a closed reduction percutaneous pinning for a left femoral neck fracture. He is recovering well but has been unable to stand on his own physical therapy. Rehabilitation team is recommending discharge to half-way facility at this time. He is also status post right total knee arthroplasty [address] Santana. Plan: - DVT prophylaxis with 81 mg of aspirin twice daily for 6 weeks, SCDs in hospital - Physical and occupational therapy evaluation - currently recommending SNF - Pain control with scheduled tylenol and oxycodone. Pain management per medicine team. - Toe touch weight bearing with front wheeled walker at all times - Follow up with orthopedic clinic in 2 weeks. Sutures to stay in place until follow up. - Bowel regimen in hospital - Normal diet, IV fluids to be discontinued when tolerating oral diet without nausea and emesis - Appreciate medicine expertise in co-managed care Orthopedic surgery will sign off. Please re-consult our service with any questions for concerns. Review of Systems Status of ROS: See HPI Exam Exam well developed, well nourished, 74 year old male, no acute distress Dressing is dry and intact, no hematoma Neurovascular intact to the left lower extremity
[2024-12-17] MEDS: LACTATED RINGERS 500 ML IV ONE (19:30)
[2024-12-17] MEDS: ONDANSETRON 4 MG/2 ML VIAL IVP PRN (19:38)
[2024-12-17] MEDS ORDERED: LACTATED RINGERS 1,000 ML ONE (19:49)
[2024-12-17] MEDS: METOPROLOL 5 MG/5 ML VIAL IVP PRN (19:56)
[2024-12-17 20:07] LABS: HCT - HEMATOCRIT 36.5 % (42.0-52.0); HGB - HEMOGLOBIN 12.2 g/dL (14.0-18.0); MEAN CORPUSCULAR HGB CONC 33.4 g/dL (32.0-36.0); MEAN CORPUSCULAR VOLUME 89.7 fL (80.0-94.0); MEAN PLATELET VOLUME 10.1 fL (7.4-11.4); RED BLOOD COUNT 4.07 10^6/uL (4.70-6.10); RED CELL DISTRIBUTION WIDTH 12.4 % (12.0-15.0); WHITE BLOOD COUNT 8.3 x10^3/uL (4.8-10.8)
[2024-12-17 20:18] LABS: CALCIUM 7.6 mg/dL (8.5-10.3); MAGNESIUM 1.5 mg/dL (1.7-2.3); POTASSIUM 4.1 mmol/L (3.5-4.5)
[2024-12-17] MEDS ORDERED: diltiaZEM INJ 5 MG/ML VIAL ONE (20:20)
[2024-12-17] MEDS: diltiaZEM INJ 5 MG/ML VIAL IVP STA (20:22)
[2024-12-17] MEDS: MAGNESIUM SULFATE 2 GRAM 2 GM/50 ML BAG IV ONE (20:31)
[2024-12-17 20:35] LABS: TROPONIN I HIGH SENSITIVITY 47.2 ng/L (2.3-19.7)
[2024-12-17] MEDS: SODIUM CHLORIDE 0.9% 1,000 ML IV SCH (20:36)
[2024-12-17] MEDS ORDERED: iohexoL-300 100 ML VIAL ONE (20:52)
[2024-12-17] MEDS ORDERED: METOPROLOL TARTRATE 25 MG TABLET PO SCH (21:00)
--- NOTE | 2024-12-17 21:02 | XRAY Report ---
PROCEDURE: FL OR C-Arm Procedure INDICATIONS: left hip fx FLUORO TIME: 0.8 MIN 557.62 uGym2 TECHNIQUE: Intraoperative fluoroscopic images. COMPARISON: X-ray femur 12/15/2024 FINDINGS: Intraoperative images demonstrating patent fixation of the left femoral head. Hardware is intact. Goo d anatomic alignment. IMPRESSION: Interval left femoral fixation. Reviewed by: Shannen Raphael MD on 12/17/2024 9:00 PM PST Approved by: Shannen Raphael MD on 12/17/2024 9:00 PM PST Station ID: [id number]
--- NOTE | 2024-12-17 21:09 | MISCELLANEOUS PROVIDER NOTE ---
Miscellaneous Provider Note - Note: Notified by nursing staff that patient is diaphoretic with heart rate 140s to 150s. EKG was performed which showed atrial fibrillation with RVR. He has history of atrial fibrillation, but was in sinus rhythm at presentation to this hospital. This conversion to A-fib RVR happened after a episode of nausea and vomiting. He reports some sharp chest pain, worse with palpation. No ischemic changes on EKG. Metoprolol 5 mg IV every 5 minutes x 3 was given with minimal effect He is on scheduled 75 mg metoprolol twice daily. Dose this morning was held. I instructed nursing staff to go ahead and give his nighttime dose of 75 mg metoprolol p.o. Diltiazem 15 mg IV x 1 given with minimal effect Repleting mag D-dimer elevated, ordered stat CTA chest to rule out PE Troponin elevated, will trend Additional 15 mg Cardizem IV push plus Cardizem drip Transferred to ICU
[2024-12-17] MEDS: iohexoL-300 100 ML VIAL IVP ONE (21:25)
[2024-12-17] MEDS: diltiaZEM INJ 125 MG in DEXTROSE 5% 100 ML IV SCH (21:30)
--- NOTE | 2024-12-17 21:35 | CT Report ---
PROCEDURE: CT Angio Chest INDICATIONS: Rule out PE CONTRAST: 80 ML OMNI TECHNIQUE: After the administration of intravenous contrast, 2 mm axial images were acquired from the pulmonary apices to the posterior costophrenic angles during the arterial phase. In addition, 1 mm lung kernel and 5 mm soft tissue kernel reconstructions were performed. 3-dimensional coronal oblique maximum int ensity projection (MIP) reformats, 8 mm axial MIP, and 5 mm coronal and sagittal MPR reformats were t hen performed through the thorax. For radiation dose reduction, the following was used: automated exp osure control, adjustment of mA and/or kV according to patient size. COMPARISON: None. FINDINGS: Image quality: Excellent. Large vessels: No filling defects within the opacified pulmonary arteries, accounting for motion and contrast timing. No evidence of acute aortic syndrome or aortic aneurysm. Lungs and pleura: No consolidation. Elevation right hemidiaphragm with right basilar atelectasis. Pos sible trace left pleural effusion with adjacent atelectasis. No suspicious pulmonary nodules which re quire follow up. Mediastinum: Heart size is normal. Status post CABG. No pericardial effusion. No large vessel abnorma lity. No mediastinal adenopathy by size criteria. Chest wall and lower neck: Thyroid is unremarkable. No axillary or supraclavicular adenopathy by size . Bones: No aggressive osseous abnormality. Median sternotomy wires. Degenerative changes of the spine with decreased osseous mineralization. Upper Abdomen: Unremarkable. IMPRESSION: 1.No pulmonary embolus. 2.Possible trace left pleural effusion and adjacent atelectasis. Elevation of the right hemidiaphragm with right basilar atelectasis. Reviewed by: Haider Siegel MD on 12/17/2024 9:34 PM PST Approved by: Haider Siegel MD on 12/17/2024 9:34 PM PST Station ID: [id number]
[2024-12-17] MEDS: diltiaZEM INJ 5 MG/ML VIAL IVP ONE (21:45)
[2024-12-17] MEDS: ATORVASTATIN 40 MG TABLET PO SCH (22:06)
[2024-12-17] MEDS: SODIUM CHLORIDE 1 GM TABLET PO SCH (22:07)
[2024-12-17] MEDS: DULoxetine 30 MG CAPSULE PO SCH (22:13)
[2024-12-18 00:47] LABS: TROPONIN I HIGH SENSITIVITY 51.6 ng/L (2.3-19.7)
[2024-12-18] MEDS: PROCHLORPERAZINE 10 MG/2 ML VIAL IVP ONE (01:00)
[2024-12-18 05:29] LABS: BASOPHILS % (AUTO) 0.3 %; EOSINOPHILS # (AUTO) 0.5 10^3/uL (0.0-0.7); EOSINOPHILS % (AUTO) 7.7 %; HCT - HEMATOCRIT 33.6 % (42.0-52.0); HGB - HEMOGLOBIN 11.3 g/dL (14.0-18.0); LYMPHOCYTES # (AUTO) 0.7 10^3/uL (1.5-3.5); LYMPHOCYTES % (AUTO) 10.4 %; MEAN CORPUSCULAR HEMOGLOBIN 30.2 pg (27.0-31.0); MEAN CORPUSCULAR HGB CONC 33.6 g/dL (32.0-36.0); MEAN CORPUSCULAR VOLUME 89.8 fL (80.0-94.0); MEAN PLATELET VOLUME 10.7 fL (7.4-11.4); MONOCYTES # (AUTO) 0.9 10^3/uL (0.0-1.0); MONOCYTES % (AUTO) 12.8 %; NEUTROPHILS # (AUTO) 4.5 10^3/uL (1.5-6.6); NEUTROPHILS % (AUTO) 68.3 %; PLT - PLATELET COUNT 92 10^3/uL (130-450); RED BLOOD COUNT 3.74 10^6/uL (4.70-6.10); RED CELL DISTRIBUTION WIDTH 12.7 % (12.0-15.0); WHITE BLOOD COUNT 6.6 x10^3/uL (4.8-10.8)
[2024-12-18 05:33] LABS: CALCIUM, IONIZED 1.07 mmol/L (1.09-1.30)
[2024-12-18 05:45] LABS: CALCIUM 7.3 mg/dL (8.5-10.3); CREATININE 0.9 mg/dL (0.6-1.3); MAGNESIUM 1.9 mg/dL (1.7-2.3); PHOSPHORUS 3.3 mg/dL (2.5-5.0); POTASSIUM 3.9 mmol/L (3.5-4.5)
[2024-12-18] MEDS: PANTOPRAZOLE 40 MG TABLET PO SCH (06:09)
[2024-12-18] MEDS: CALCIUM CARBONATE CHEW 500 MG TABLET PO SCH (06:09)
[2024-12-18] MEDS: DULoxetine 60 MG CAPSULE PO SCH (08:25)
[2024-12-18] MEDS: TAMSULOSIN 0.4 MG CAPSULE PO SCH (08:27)
[2024-12-18 08:34] LABS: TROPONIN I HIGH SENSITIVITY 45.5 ng/L (2.3-19.7)
[2024-12-18] MEDS ORDERED: ASPIRIN EC 81 MG TABLET PO SCH (09:00)
[2024-12-18] MEDS: CETIRIZINE 10 MG TABLET PO SCH (11:28)
--- NOTE | 2024-12-18 15:00 | PROVIDER PROGRESS NOTE ---
Subjective Prog Note Date Prog Note Date: 12/18/24 Subjective Pt reports feeling: Improved Current Medications Current Medications Current Medications: Current Medications Generic Name Dose Route Start Last Admin Trade Name Da PRN Reason Stop Dose Admin Acetaminophen 1,000 mg 12/16/24 14:42 12/18/24 06:09 Acetaminophen 500 Mg Tablet PO 1,000 mg TID MELISSA Administration Aspirin 81 mg 12/17/24 09:00 12/18/24 08:23 Aspirin Ec 81 Mg Tablet PO 81 mg BID MELISSA Administration Atorvastatin Calcium 80 mg 12/17/24 21:00 12/17/24 22:06 Atorvastatin 40 Mg Tablet PO 80 mg HS MELISSA Administration Cetirizine HCl 10 mg 12/18/24 09:00 12/18/24 11:28 Cetirizine 10 Mg Tablet PO 10 mg DAILY MELISSA Administration Cyclobenzaprine HCl 10 mg 12/16/24 18:00 12/18/24 06:09 Cyclobenzaprine 10 Mg Tablet PO 10 mg TID MELISSA Administration Docusate Sodium 100 mg 12/16/24 21:00 12/18/24 08:24 Docusate Sodium 100 Mg Capsule PO Not Given BID [facility] Duloxetine HCl 30 mg 12/17/24 21:00 12/17/24 22:13 Duloxetine 30 Mg Capsule PO 30 mg HS MELISSA Administration Duloxetine HCl 60 mg 12/18/24 09:00 12/18/24 08:25 Duloxetine 60 Mg Capsule PO 60 mg DAILY MELISSA Administration Hydromorphone HCl 0.2 mg 12/17/24 14:28 12/18/24 01:16 Hydromorphone 0.5 Mg/0.5 Ml Syringe IVP 0.2 mg Q2H PRN Administration Severe Pain (Level 7-10) Sodium Chloride 1,000 mls @ 125 mls/hr 12/17/24 21:00 12/18/24 14:47 Normal Saline 0.9% IV Not Given .Q8H [facility] Insulin Human Lispro 3 - 11 unit 12/15/24 21:00 12/18/24 12:05 Insulin Lispro 300 Unit/3 Ml Pen SUBQ 3 unit 0800,1200,1700,2100 MELISSA Administration Protocol Isosorbide Mononitrate 120 mg 12/16/24 09:00 12/18/24 08:25 Isosorbide Mononitrate Er 30 Mg Tablet PO 120 mg DAILY MELISSA Administration Lidocaine 1 patch 02/26/25 17:15 12/18/24 08:25 Lidocaine Patch 4% TOP 1 patch DAILY MELISSA Administration Metoprolol Tartrate 75 mg 12/15/24 21:00 12/18/24 08:26 Metoprolol Tartrate 25 Mg Tablet PO 75 mg BID MELISSA Administration Ondansetron HCl 4 mg 12/15/24 20:49 12/17/24 19:38 Ondansetron 4 Mg/2 Ml Vial IVP 4 mg Q6HR PRN Administration Nausea / Vomiting Oxycodone HCl 5 mg 12/16/24 17:48 12/17/24 17:01 Oxycodone 5 Mg Tablet PO 5 mg Q4HR PRN Administration Moderate Pain (Level 4-6) Oxycodone HCl 10 mg 12/17/24 02:33 12/18/24 08:27 Oxycodone 5 Mg Tablet PO 10 mg Q6HR PRN Administration PAIN >8 Pantoprazole Sodium 40 mg 12/18/24 07:00 12/18/24 06:09 Pantoprazole 40 Mg Tablet PO 40 mg QDAC MELISSA Administration Ranolazine 500 Mg 1 each 12/17/24 21:00 12/18/24 11:29 Tablet Extended PO 1 each Release 12 Hr BID MELISSA Administration Polyethylene Glycol 17 gm 12/16/24 10:00 12/18/24 08:24 Polyethylene Glycol 3350 17 Gm Packet PO Not Given DAILY MELISSA Sodium Chloride 10 ml 12/15/24 20:49 Sodium Chloride Flush 0.9% 10 Ml Syringe IVP PRN PRN NEEDED PER PROVIDER ORDERS Sodium Chloride 10 ml 12/16/24 01:00 12/18/24 08:24 Sodium Chloride Flush 0.9% 10 Ml Syringe IVP 10 ml 0100,0900,1700 MELISSA Administration Sodium Chloride 2 gm 12/17/24 22:00 12/18/24 06:09 Sodium Chloride 1 Gm Tablet PO 2 gm TID MELISSA Administration Tamsulosin HCl 0.4 mg 12/18/24 09:00 12/18/24 08:27 Tamsulosin 0.4 Mg Capsule PO 0.4 mg DAILY MELISSA Administration Objective Vital Signs/Intake & Output Reviewed Vital Signs: Yes Vital Signs: Vital Signs x48h Temp Pulse Pulse Resp BP BP Pulse Ox 12/18/24 14:00 66 20 90/51 L 92 12/18/24 12:00 35.9 C L 64 20 101/52 L 93 12/18/24 11:00 63 16 95/69 93 12/18/24 10:00 62 26 H 90/53 L 93 12/18/24 09:00 62 15 107/50 L 96 12/18/24 08:26 92 106/65 12/18/24 08:00 36.6 C 90 106/65 95 12/18/24 07:00 88 18 129/61 97 O2 Flow Rate 12/18/24 14:00 2 12/18/24 12:00 2 12/18/24 11:00 3 12/18/24 10:00 3 12/18/24 09:00 4.5 12/18/24 08:26 12/18/24 08:00 4.5 12/18/24 07:00 4.5 Intake & Output: Intake & Output 12/15/24 12/16/24 12/17/24 12/18/24 23:59 23:59 23:59 23:59 Intake Total 1060 / 1060 2720 / 2720 3932 / 3932 2889 / 2889 Output Total 850 / 850 1690 / 1690 1200 / 1200 875 / 875 Balance 210 / 210 1030 / 1030 2732 / 2732 2013 Weight (kg) 111 kg 109 kg Objective General Appearance: positive No acute distress and Alert Eyes Bilateral: positive Normal inspection ENT: positive No signs of dehydration Neck: positive No JVD Respiratory: positive Chest non-tender and No respiratory distress Cardiovascular: positive Regular rate & rhythm Abdomen: positive Non-tender Skin: positive Color nml Extremities: positive Other (Pain in left hip) Neurologic/Psychiatric: positive Oriented x3 Lab Results 12/18/24 04:22 12/18/24 12:07 Other Labs: Lab Results x24hrs 12/18/24 12/18/24 12/18/24 Range/Units 12:07 12:00 08:02 WBC (4.8-10.8) x10^3/uL RBC (4.70-6.10) 10^6/uL Hgb (14.0-18.0) g/dL Hct (42.0-52.0) % MCV (80.0-94.0) fL MCH (27.0-31.0) pg MCHC (32.0-36.0) g/dL RDW (12.0-15.0) % Plt Count (130-450) 10^3/uL MPV (7.4-11.4) fL Neut # (Auto) (1.5-6.6) 10^3/uL Lymph # (Auto) (1.5-3.5) 10^3/uL Shannon # (Auto) (0.0-1.0) 10^3/uL Eos # (Auto) (0.0-0.7) 10^3/uL Baso # (Auto) (0.0-0.1) 10^3/uL Absolute Nucleated RBC x10^3/uL Nucleated RBC % /100WBC D-Dimer (200.0-255.0) ng/mL VBG pH (7.31-7.41) Ionized Calcium (1.09-1.30) mmol/L Sodium 129 L 129 L (135-145) mmol/L Potassium (3.5-4.5) mmol/L Chloride (101-111) mmol/L Carbon Dioxide (21-32) mmol/L Anion Gap (6-13) BUN (6-20) mg/dL Creatinine (0.6-1.3) mg/dL Estimated GFR (MDRD) (>89) Glucose (74-104) mg/dL POC Whole Bld Glucose 167 (70-100) mg/dL Calcium (8.5-10.3) mg/dL Phosphorus (2.5-5.0) mg/dL Magnesium (1.7-2.3) mg/dL Troponin I High Sens 45.5 H* (2.3-19.7) ng/L Nasal Screen MRSA (PCR) (NEGATIVE) 12/18/24 12/18/24 12/18/24 Range/Units 07:52 04:22 01:43 WBC 6.6 (4.8-10.8) x10^3/uL RBC 3.74 L (4.70-6.10) 10^6/uL Hgb 11.3 L (14.0-18.0) g/dL Hct 33.6 L (42.0-52.0) % MCV 89.8 (80.0-94.0) fL MCH 30.2 (27.0-31.0) pg MCHC 33.6 (32.0-36.0) g/dL RDW 12.7 (12.0-15.0) % Plt Count 92 L (130-450) 10^3/uL MPV 10.7 (7.4-11.4) fL Neut # (Auto) 4.5 (1.5-6.6) 10^3/uL Lymph # (Auto) 0.7 L (1.5-3.5) 10^3/uL Shannon # (Auto) 0.9 (0.0-1.0) 10^3/uL Eos # (Auto) 0.5 (0.0-0.7) 10^3/uL Baso # (Auto) 0.0 (0.0-0.1) 10^3/uL Absolute Nucleated RBC 0.00 x10^3/uL Nucleated RBC % 0.0 /100WBC D-Dimer (200.0-255.0) ng/mL VBG pH 7.434 H (7.31-7.41) Ionized Calcium 1.07 L (1.09-1.30) mmol/L Sodium 127 L (135-145) mmol/L Potassium 3.9 (3.5-4.5) mmol/L Chloride 98 L (101-111) mmol/L Carbon Dioxide 24 (21-32) mmol/L Anion Gap 5.0 L (6-13) BUN 11 (6-20) mg/dL Creatinine 0.9 (0.6-1.3) mg/dL Estimated GFR (MDRD) 82 L (>89) Glucose 181 H (74-104) mg/dL POC Whole Bld Glucose 167 (70-100) mg/dL Calcium 7.3 L (8.5-10.3) mg/dL Phosphorus 3.3 (2.5-5.0) mg/dL Magnesium 1.9 (1.7-2.3) mg/dL Troponin I High Sens 47.2 H* (2.3-19.7) ng/L Nasal Screen MRSA (PCR) NEGATIVE (NEGATIVE) 12/18/24 12/17/24 12/17/24 Range/Units 00:15 20:00 16:36 WBC 8.3 (4.8-10.8) x10^3/uL RBC 4.07 L (4.70-6.10) 10^6/uL Hgb 12.2 L (14.0-18.0) g/dL Hct 36.5 L (42.0-52.0) % MCV 89.7 (80.0-94.0) fL MCH 30.0 (27.0-31.0) pg MCHC 33.4 (32.0-36.0) g/dL RDW 12.4 (12.0-15.0) % Plt Count 87 L (130-450) 10^3/uL MPV 10.1 (7.4-11.4) fL Neut # (Auto) (1.5-6.6) 10^3/uL Lymph # (Auto) (1.5-3.5) 10^3/uL Shannon # (Auto) (0.0-1.0) 10^3/uL Eos # (Auto) (0.0-0.7) 10^3/uL Baso # (Auto) (0.0-0.1) 10^3/uL Absolute Nucleated RBC x10^3/uL Nucleated RBC % /100WBC D-Dimer 535.4 H (200.0-255.0) ng/mL VBG pH (7.31-7.41) Ionized Calcium (1.09-1.30) mmol/L Sodium 125 L 125 L (135-145) mmol/L Potassium 4.1 (3.5-4.5) mmol/L Chloride 95 L (101-111) mmol/L Carbon Dioxide 24 (21-32) mmol/L Anion Gap 6.0 (6-13) BUN 11 (6-20) mg/dL Creatinine 1.0 (0.6-1.3) mg/dL Estimated GFR (MDRD) 73 L (>89) Glucose 232 H (74-104) mg/dL POC Whole Bld Glucose 195 (70-100) mg/dL Calcium 7.6 L (8.5-10.3) mg/dL Phosphorus (2.5-5.0) mg/dL Magnesium 1.5 L (1.7-2.3) mg/dL Troponin I High Sens 51.6 H* 47.2 H* (2.3-19.7) ng/L Nasal Screen MRSA (PCR) (NEGATIVE) Assessment/Plan Problem List (1) Paroxysmal atrial fibrillation: Impression: Continue metoprolol. Status post closure of left atrial appendage, so anticoagulation necessary 12/18/2024: Episode of AF RVR as described in miscellaneous note last night. Was on Cardizem overnight, this was stopped this morning after his morning dose of metoprolol. VSS, known history of atrial fibrillation status post Watchman procedure, will continue current regimen of metoprolol for rate control and maintain telemetry to ensure he does not go back into this rhythm (2) Closed fracture of neck of left femur: Impression: Mechanical ground-level fall with minimally displaced left femoral neck fracture. Ortho on board. I am adding Tylenol 1 g 3 times daily in addition to his hydromorphone 0.5 mg IV push every 2 hours as needed and monitoring respiratory status to ensure he does not have respiratory depression. Plan for OR today 12/17/2024: POD 1. Continue Tylenol and Flexeril scheduled. We have increased his dose of oxycodone to 10 mg. Discussed case with Ortho today, they recommend 1 more day and PT eval which have already ordered. I have restarted his duloxetine. He reports his pain is a 6 today. I explained to him that we would not be able to get rid of all of his pain, but we will try and keep managed as best as possible. I am adding 0.2 mg Dilaudid every 2 hours as needed 12/18/2024: Postop day 2. Continuing Tylenol and Flexeril scheduled. His pain is much better controlled today. Need for parenteral narcotics is decreasing, but he is still using them. Will continue to keep Dilaudid as needed for pain and encouraged him to opt for his p.o. regimen is much as as tolerated. He is medically cleared today, plan for discharge tomorrow to [facility] (3) Ground-level fall: Impression: Mechanical fall, denies dizziness, alteration in consciousness and head injury (4) Coronary artery disease involving [place] coronary artery: Impression: CABG February 2019. Follows cardiology in [place]. Chronic, continue home regimen isosorbide metoprolol Qualifiers: [place] vs. transplanted heart: [place] heart Associated angina: without angina Qualified Code(s): I25.10 - Atherosclerotic heart disease of [place] coronary artery without angina pectoris (5) Essential hypertension: Impression: Metoprolol, isosorbide as above (6) Type 2 diabetes mellitus with peripheral neuropathy: Impression: A1c 6.8. He takes lispro with meals and Mounjaro weekly. Holding Mounjaro while he is in the hospital. SSI Restarted home dose Cymbalta
--- NOTE | 2024-12-18 16:33 | PT Plan of Care ---
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 Autoimmune hemolytic anemias (02/13/18) Acquired hemolytic anemia (02/17/16) Surgical History (Updated 10/16/24 @ 16:47 by Regino Erazo MD) H/O colonoscopy 04/2024, no polyps + sigmoid diverticulosis Fragmented bone 02/2024, removed from right anterior pisano H/O esophagogastroduodenoscopy 10/2022, mild chronic inflammation S/P ablation of atrial flutter 02/2022 S/P lumbar laminectomy 01/2022, L2-3 H/O endoscopy 06/2020, prominent papilla, o/w benign Arthrodesis present 11/2019, right foot, digists 2-5 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 Santana S/P cholecystectomy Status post Matt fundoplication H/O heart artery stent 11/2012, GE-RCA + proximal PDA 04/2015, GE-distal RCA H/O heart artery stent 2001, RCA x 2 stents Balance/ Functional Results Sitting Balance Fair Standing Balance Poor Assessment Assessment Pt is a 74yo M seen for PT re-eval d/t change in status from med/surg to ICU. Placed in ICU d/t Afib c RVR, now resolved and cleared for therapy . Pt is POD2 s/p L hip screw fixation performed 12/16/24. Pt had L femoral neck fx after tripping over dogs at home. Of note, pt had RTKA approx 5 wks ago performed by Dr Santana; has been seen by OPPT for post-TKA rehab as prescribed. Pt reports he had been walking without an AD and ROM and strength were improving with PT. Upon PT re-eval today, pt reports minimal pain at rest, hypotensive but vital otherwise stable and agreeable to participate. Pt is now on 2L O2, sats 92-95%. Transfers to EOB with modAx1. PT reviews TTWB precautions with pt and pt expresses understanding but notably fatigued and distractible. RN assists at LLE to maintain TTWB while PT and TRUANT OFFICER assist with STS and stand pivot transfer. RLE mobility nearly WNL aside from R knee 5-100 deg and healing post-TKA incision. RLE weakness > than PT eval on 12/17 and pt has difficulty maintaining standing despite 3 person assist. Pt will benefit from continued PT in acute setting to improve functional mobility and safety. When medically clear PT rec dc to SNF as pt is unable to stand and cannot transfer without modAx2-3. Patient/ Family Goals Patient/Family Goals go home Goals Improve bed mobility to: Contact Guard Improve supine to sit to: Contact Guard Improve sit to stand to: Moderate Assist Improve pivot transfer ability Moderate Assist to: Improve sit to supine to: Minimal Assist Improve gait ability to: Mod A Assistive Device Used: Front Wheeled Walker Other gait goal: pt able to transfer in/out of for longer distance mobility while TTWB precautions in place Improve Lower Extremity ROM to WFL : [Bilateral] Improve Lower Extremity ROM to WFL : Improve Lower Extremity Good Strength to: [Bilateral] Improve Lower Extremity Good Strength to: Improve Sitting Balance to: Good Improve Standing Balance to: Fair PT Plan of Care Frequency 1-2x/day Duration Until goals are met Discharge Recommendations Discharge Location [facility] Equipment Recommended Front wheeled walker,Wheelchair Other has own FWW in room Transport Needs at Discharge B.L.S Other BLS d/t recent surgeries, unhealed fx's
[2024-12-19 00:32] VITALS: TEMP 98.2
[2024-12-19 05:24] LABS: BASOPHILS % (AUTO) 0.7 %; EOSINOPHILS # (AUTO) 0.4 10^3/uL (0.0-0.7); EOSINOPHILS % (AUTO) 10.1 %; HCT - HEMATOCRIT 32.7 % (42.0-52.0); HGB - HEMOGLOBIN 10.4 g/dL (14.0-18.0); LYMPHOCYTES # (AUTO) 0.7 10^3/uL (1.5-3.5); LYMPHOCYTES % (AUTO) 15.2 %; MEAN CORPUSCULAR HEMOGLOBIN 29.6 pg (27.0-31.0); MEAN CORPUSCULAR HGB CONC 31.8 g/dL (32.0-36.0); MEAN CORPUSCULAR VOLUME 93.2 fL (80.0-94.0); MEAN PLATELET VOLUME 11.2 fL (7.4-11.4); MONOCYTES # (AUTO) 0.7 10^3/uL (0.0-1.0); MONOCYTES % (AUTO) 16.6 %; NEUTROPHILS # (AUTO) 2.5 10^3/uL (1.5-6.6); NEUTROPHILS % (AUTO) 56.9 %; PLT - PLATELET COUNT 81 10^3/uL (130-450); RED BLOOD COUNT 3.51 10^6/uL (4.70-6.10); RED CELL DISTRIBUTION WIDTH 12.7 % (12.0-15.0); WHITE BLOOD COUNT 4.3 x10^3/uL (4.8-10.8)
[2024-12-19 05:40] LABS: CALCIUM 7.7 mg/dL (8.5-10.3); CREATININE 0.8 mg/dL (0.6-1.3); POTASSIUM 4.2 mmol/L (3.5-4.5)
[2024-12-19 10:01] VITALS: BP 129/57; O2SAT 97
--- NOTE | 2024-12-19 10:12 | Discharge Summary ---
"Discharge Summary Admit Date: 12/15/24 Discharge Date: 12/19/24 Discharging Provider: Ck Richardson NP Primary Care Provider: Regino Erazo Code Status: Attempt Resuscitation DIAGNOSES Admission Diagnoses: Fracture of femoral neck, left Ground-level fall History of CAD Hypertension Diabetes mellitus with hyperglycemia, with long-term current use of insulin BPH Atrial fibrillation Discharge Diagnoses with Status of Each Condition: Fracture of femoral neck, leftpostop Ground-level fallmechanical History of CADchronic Hypertensionchronic Diabetes mellitus with hyperglycemia, with long-term current use of insulinchronic BPHchronic Atrial fibrillationhad an episode of RVR while admitted, now rate controlled HPI History of Present Illness: 74-year-old male who presents to the emergency department this evening after tripping backwards over his dogs and landing on his left hip. Immediate onset of left hip pain and inability ambulate. 5 weeks ago had a right total knee arthroplasty and has done relatively well from this is actively engaged in physical therapy and walking with a cane outside the home no supportive device inside the home Has a past medical history of coronary artery disease status post CABG in 2019. History of diabetes.Hemoglobin A1c 10/27/2024 was 6.8%. Since his knee surgery he has been struggling with some constipation. Last had a bowel movement this morning which was firm. CONSULTS | PROCEDURES Consultations: Orthopedic surgery Procedures: 12/16/2024: Left hip pinning HOSPITAL COURSE Hospital Course: Patient was brought into the hospital and underwent left hip pinning on 12/16/2024. In the postop setting, he converted into atrial fibrillation with RVR. He has history of atrial fibrillation status post Watchman procedure. He was moved to the ICU and placed on Cardizem drip and then converted back into sinus rhythm and was returned to his home regimen of metoprolol. He was evaluated by physical therapy, who recommended SNF placement. [facility] with [facility]opedics as well as PCP ALLERGIES Allergies Allergy/AdvReac Type Severity Reaction Status Date / Time No Known Drug Allergies Allergy Verified 12/15/24 16:48 MEDICATIONS Ambulatory Orders Medication Instructions Recorded Confirmed pantoprazole 40 mg tablet,delayed 40 mg PO QDAC 02/13/16 12/16/24 release ferrous sulfate 325 mg (65 mg 325 mg PO DAILY 06/11/16 12/16/24 iron) tablet cetirizine 10 mg tablet 10 mg PO DAILY 06/17/16 12/16/24 duloxetine 30 mg capsule,delayed 30 mg PO HS 06/05/23 12/16/24 release nitroglycerin 0.4 mg sublingual 0.4 mg sublingual [id number] PRN Pain 06/05/23 12/16/24 tablet 1-4 acetaminophen 500 mg tablet 500 mg PO TID PRN As Needed Per 03/13/24 12/16/24 Provider Orders coenzyme [id number] E 100 mg-5 1 ea PO DAILY 03/13/24 12/16/24 unit capsule (Co Q-10 (with Vit E)) isosorbide mononitrate 120 mg 120 mg PO DAILY 03/13/24 12/16/24 tablet,extended release 24 hr magnesium oxide 200 mg PO DAILY 03/13/24 12/16/24 diclofenac sodium 1 % topical gel 2 g topical QID PRN pain 10/08/24 12/16/24 tirzepatide 7.5 mg/0.5 mL 7.5 mg (0.5 mL) subcut QWEEK #6.5 10/09/24 12/16/24 subcutaneous pen injector mL (Sandy) metoprolol tartrate 50 mg tablet 75 mg (1.5 x 50 mg) PO BID #270 10/16/24 12/16/24 tabs valacyclovir 1 gram tablet 2,000 mg PO DIRECTED 10/16/24 12/16/24 tamsulosin 0.4 mg capsule See Rx Instructions .Route 11/09/24 12/16/24 .COMPLEX #90 caps atorvastatin 80 mg tablet 80 mg PO HS 12/16/24 12/16/24 docusate sodium 100 mg capsule 100 mg PO DAILY PRN constipation 12/16/24 12/16/24 duloxetine 60 mg capsule,delayed 60 mg PO DAILY 12/16/24 12/16/24 release insulin glargine 100 unit/mL (3 27 - 36 unit subcut BID 12/16/24 12/16/24 mL) subcutaneous pen (Lantus Solostar U-100 Insulin) insulin lispro 100 unit/mL 12 - 18 unit subcut TIDWM 12/16/24 12/16/24 subcutaneous pen (Humalog KwikPen (U-100) Insulin) oxycodone-acetaminophen 5 mg-325 1 tab PO Q6H PRN pain 12/16/24 12/16/24 mg tablet ranolazine 500 mg tablet,extended 500 mg PO BID 12/16/24 12/16/24 release,12 hr aspirin 81 mg tablet,delayed 81 mg PO BID 6 weeks #84 tabs 12/19/24 release cyclobenzaprine 10 mg tablet 10 mg PO TID PRN muscle spasm #30 12/19/24 tabs oxycodone 5 mg tablet 5 mg PO Q4HR PRN Moderate Pain 12/19/24 (Level 4-6) 3 days #20 tabs sodium chloride 1,000 mg soluble 1,000 mg PO BID #14 tabs 12/19/24 tablet PHYSICAL EXAM AT DISCHARGE General Appearance: positive No acute distress and Alert Eyes Bilateral: positive Normal inspection and PERRL ENT: positive ENT inspection nml Neck: positive Nml inspection Respiratory: positive Chest non-tender and No respiratory distress Cardiovascular: positive Regular rate & rhythm Peripheral Pulses: positive 2+ Abdomen: positive Non-tender Skin: positive Color nml Extremities: positive Non-tender Neurologic/Psychiatric: positive Oriented x3 LABS 12/19/24 04:55 12/19/24 08:12 FOLLOW UP Follow Up: With PCP, Ortho TIME SPENT Time Spent in Discharge (Minutes): 35 Discharge Plan Discharge Patient Disposition: DC/Xfer Prescriptions: New aspirin 81 mg Tablet,Delayed Release (Dr/Ec) 81 mg PO BID 42 Days Qty: 84 0RF cyclobenzaprine 10 mg Tablet 10 mg PO TID PRN (Reason: muscle spasm) Qty: 30 0RF oxycodone 5 mg Tablet 5 mg PO Q4HR PRN (Reason: Moderate Pain (Level 4-6)) 3 Days Qty: 20 0RF sodium chloride 1,000 mg Tablet,Soluble 1,000 mg PO BID Qty: 14 0RF Continued tamsulosin 0.4 mg capsule See Rx Instructions .ROUTE .COMPLEX Qty: 90 3RF Dose Instruction: TAKE ONE CAPSULE BY MOUTH ONE TIME DAILY Rx Instructions: TAKE ONE CAPSULE BY MOUTH ONE TIME DAILY pantoprazole 40 MG tablet,delayed release (DR/EC) 40 mg PO QDAC ferrous sulfate 325 MG tablet 325 mg PO DAILY cetirizine 10 MG tablet 10 mg PO DAILY nitroglycerin 0.4 MG tablet, sublingual 0.4 mg sublingual [id number] PRN (Reason: Pain 1-4) duloxetine 30 MG capsule,delayed release(DR/EC) 30 mg PO HS Rx Instructions: 60mg am, 30mg pm isosorbide mononitrate 120 MG tablet extended release 24 hr 120 mg PO DAILY acetaminophen 500 MG tablet 500 mg PO TID PRN (Reason: As Needed Per Provider Orders) coenzyme [id number] E [Co Q-10 (with Vit E)] 1 EACH capsule 1 ea PO DAILY magnesium oxide 200 MG tablet,chewable 200 mg PO DAILY ranolazine 500 mg tablet extended release 12 hr 500 mg PO BID Patient Comments: TAKE ONE TABLET BY MOUTH TWICE DAILY. Swallow whole. Do not crush, break, or chew. duloxetine 60 mg capsule,delayed release(DR/EC) 60 mg PO DAILY Patient Comments: TAKE ONE CAPSULE BY MOUTH ONE TIME DAILY Rx Instructions: 60MG AM, 30MG PM atorvastatin 80 mg tablet 80 mg PO HS docusate sodium 100 mg capsule 100 mg PO DAILY PRN (Reason: constipation) Rx Instructions: take one capsule by mouth two times daily, hold for loose stools oxycodone-acetaminophen 5-325 mg tablet 1 tab PO Q6H PRN (Reason: pain) Patient Comments: TAKE 1 TABLET BY MOUTH EVERY 6 HOURS NEEDED FOR moderate PAIN (pain scale 4-6) for up to 10 days insulin lispro [Humalog KwikPen Insulin] 100 unit/mL insulin pen 12 - 18 unit SUBCUT TIDWM Rx Instructions: 16 units breakfast, 12 units lunch, 18 units dinner diclofenac sodium 1 % gel 2 g topical QID PRN (Reason: pain) Rx Instructions: apply to single elbow, wrist or hand; for hand includes palm/fingers/back of hand Mounjaro 7.5 mg/0.5 mL pen injector 7.5 mg subcut QWEEK Qty: 6.5 3RF metoprolol tartrate 50 mg tablet 75 mg PO BID Qty: 270 3RF valacyclovir 1 gram tablet 2,000 mg PO DIRECTED Rx Instructions: 2 tab BID x 1 day prn HSV outbreak Held insulin glargine [Lantus Solostar U-100 Insulin] 100 unit/mL (3 mL) insulin pen 27 - 36 unit SUBCUT BID Hold Instructions: Resume on 03/15/25. Please hold until discuss with PCP, sugars well controlled in hospital on just low dose SSI. Rx Instructions: Inject 27 units in the AM and 36 units in the PM Discontinued aspirin [Adult Low Dose Aspirin] 81 MG tablet,delayed release (DR/EC) 81 mg PO DAILY Activity Restrictions: Activity as Tolerated Activity Restrictions/Additional Instructions: Hip Pinning and Femoral Neck Fracture Postoperative Protocol [facility] Orthopedic Team have createdpostoperativefracture protocols for our patients. These are based on the latest orthopedic science and literature in order to give patients the most up to date care. Their content is designed to explain what type of injury was sustained, the type of surgery that was done and simple instructions for weight bearing, wound care, physical therapy, medicine and diet issues. Patients will hear similar information in eachpostoperativevisit but it is easy to forget what is said. The following protocol is designed to help patients in their healing with a single resource for frequently asked questions. What Was Broken Your hip is a ball and socket joint. You broketheball of your hip which is the top of the bone called the femur. The type of break you had is called afemoral neckfracture. What Was Done in Surgery Yourhip fracturewas fixed withthree stainless steel screws. This type of surgery is done for less severe femoral neck fractures to avoid the risks of longer procedures with bigger incisions like hemiarthroplasty. Home Health vs [facility] Facility vs Rehabilitation Hospital Most patients stay in the hospital after hip surgery for 1-2 days. Some are able to go home unassisted. Others can go home with a Home Health Agency checking in on them to help with bathing and therapy. If a patient is unsafe on their own, they will need to go to a long term facility or rehabilitation hospital. In the hospital you will meet with physical therapists, occupational therapists, social workers and physical medicine and rehabilitation doctors who will help find which solution is best. Follow Up Appointment You should see your surgeon or his physician oral surgery assistant 10-14 days after surgery. Usually, this appointment is made when you schedule surgery. You will be seen at 2 weeks, 6 weeks and 3 months from surgery where the provider will examine you and x-rays will be taken to follow bone healing. Wound Care Your wound was closed with sutures. After 4 days you can take off the dressing. If the wound is dry, you do not need to cover it with a new bandage. If it is leaking, replace dressing with a clean gauze pad and tape. Showering You may shower 4 days after surgery. Your dressing from surgery is waterproof. If it gets wet, remove the bandage, and place a new one. Do not immerse your wound in a bath or hot tub until your stiches or jose de jesus are removed Pain Control You have been given a prescription for narcotic pain medication. It is ok to take anti-inflammatory medicine like Motrin (ibuprofen) or Tylenol (acetaminophen) as well. Do not take more than 4 grams of Tylenol a day or it can hurt your internal organs. Diet Eat a well-balanced diet. If you are diabetic keep your blood sugars well controlled (less than 180). High blood sugar can put you at risk for infection, wound complications and the bone not healing (nonunion). Sutures/Jose De Jesus Your wound has been closed with sutures. They will be removed at your first postoperative follow up appointment 10-14 days after surgery at the discretion of the surgeon. Weight Bearing You are toe touch weight bearing about the left leg with a front wheeled walker after surgery. You will have pain in your hip while it heals but it is safe to walk on it. Move your hip, knee, and ankle as much as possible to avoid getting stiff. Blood Clot Prophylaxis Patients with pelvis and leg fractures are at risk to get blood clots in the legs that can dislodge and travel in the bloodstream to the lungs causing disability or . There are several ways to decrease the risk of this complication. In the hospital you have pneumatic compression devices on your legs. Once discharged home take aspirin for 6 weeks. Walking and moving as much as you can is also preventative. Physical Therapy Most patients with hip fractures do not require physical therapy other than gait training to make sure you are using your assistive devices like a walker or cane correctly. Most patients need about 3-4 months of therapy to regain their preinjury range of motion and strength.An order was placed to [facility]. Please contact them to schedule your appointmetns. Return to Work Patients can usually return to a desk job or light duty after a few days. Return without restriction to jobs that require heavy lifting or manual labor usually takes about 12 weeks Driving You should not drive a car if you are still taking narcotic pain medication. You should discuss return to driving with your surgeon at follow up visits. Do not drive at this time. Hardware Removal The three screws usually stay in for life and are not routinely removed. If the fracture does not heal or you develop hip arthritis in the future the screws will be removed so a hip replacement can be done. A very small number of patients have pain at the head of the screws and have them removed a year after insertion, but this can place them at increased risk to rebreak the hip. Healing Time Hip fractures treated with surgery take about 3 months to heal completely. Younger patients heal slightly faster and older patients or those with diabetes take slightly longer to heal. Medications Take three pills of 325 mg Tylenol (acetaminophen) every 8 hours regardless of pain in a scheduled manner. Do not exceed 3000 mg of Tylenol (from ALL sources, including over the counter combination products) in a 24-hour period due to risk of liver injury. Take one pill of 5 mg oxycodone by mouth every 4-6 hours as needed for break through pain stronger than 7 out of 10 on a pain scale. Take this for severe pain 1 hour after taking the scheduled Tylenol and ibuprofen. Take 200 mg of Colace by mouth every 12 hours for constipation. Narcotic medications such as oxycodone may increase your risk of constipation after surgery. Take 4 mg of Zofran by mouth every 6 hours as needed for uncontrolled nausea or vomiting. If you have persistent nausea and vomiting call our office or seek care in the emergency department. Take one pill of 81 mg of aspirin two times daily 12 hours apart for 6 weeks for blood clot prevention. Diet: Diabetic Health Concerns: You came in because you took a fall after tripping over her dogs and landed on your hip. Your imaging showed that you had a minimally displaced femoral neck fracture. Dr. Live saw you and completed a left hip pinning. You will need further rehab to get stronger before you are able to go home, which is why you are going to a long term facility to help get you stronger. Please see the attached orthopedic instructions including instructions about taking aspirin 81 mg twice daily for [address] Live, your orthopedic surgeon would like to see you in his office 2 weeks from now. Please call him to set up this appointment on discharge. While you are here, you also went into a fast heart rate called atrial fibrillation with rapid ventricular response. We continued your home metoprolol, and this resolved. You are also found to have low sodium while here. I will be discharging you on a salt tab that I want you to take twice a day for the next 7 days. After this, you should get a recheck of your lab work with your primary care provider to follow-up on your sodium levels. Please see them in the next 2 weeks. We are glad you are feeling better, thank you for allowing us to take care of you. Print Language: Somali Patient Instructions: Surgery Anesthesia After Stand Alone Forms: SNF Discharge, PCP List"
--- NOTE | 2024-12-21 15:01 | Discharge Summary ---
Discharge Summary ALLERGIES Allergies Allergy/AdvReac Type Severity Reaction Status Date / Time No Known Drug Allergies Allergy Verified 12/15/24 16:48 MEDICATIONS Ambulatory Orders Medication Instructions Recorded Confirmed pantoprazole 40 mg tablet,delayed 40 mg PO QDAC 02/13/16 12/16/24 release ferrous sulfate 325 mg (65 mg 325 mg PO DAILY 06/11/16 12/16/24 iron) tablet cetirizine 10 mg tablet 10 mg PO DAILY 06/17/16 12/16/24 duloxetine 30 mg capsule,delayed 30 mg PO HS 06/05/23 12/16/24 release nitroglycerin 0.4 mg sublingual 0.4 mg sublingual [id number] PRN Pain 06/05/23 12/16/24 tablet 1-4 acetaminophen 500 mg tablet 500 mg PO TID PRN As Needed Per 03/13/24 12/16/24 Provider Orders coenzyme [id number] 100 mg-5 1 ea PO DAILY 03/13/24 12/16/24 unit capsule (Co Q-10 (with Vit E)) isosorbide mononitrate 120 mg 120 mg PO DAILY 03/13/24 12/16/24 tablet,extended release 24 hr magnesium oxide 200 mg PO DAILY 03/13/24 12/16/24 diclofenac sodium 1 % topical gel 2 g topical QID PRN pain 10/08/24 12/16/24 tirzepatide 7.5 mg/0.5 mL 7.5 mg (0.5 mL) subcut QWEEK #6.5 10/09/24 12/16/24 subcutaneous pen injector mL (Sandy) metoprolol tartrate 50 mg tablet 75 mg (1.5 x 50 mg) PO BID #270 10/16/24 12/16/24 tabs valacyclovir 1 gram tablet 2,000 mg PO DIRECTED 10/16/24 12/16/24 tamsulosin 0.4 mg capsule See Rx Instructions .Route 11/09/24 12/16/24 .COMPLEX #90 caps atorvastatin 80 mg tablet 80 mg PO HS 12/16/24 12/16/24 docusate sodium 100 mg capsule 100 mg PO DAILY PRN constipation 12/16/24 12/16/24 duloxetine 60 mg capsule,delayed 60 mg PO DAILY 12/16/24 12/16/24 release insulin glargine 100 unit/mL (3 27 - 36 unit subcut BID 12/16/24 12/16/24 mL) subcutaneous pen (Lantus Solostar U-100 Insulin) insulin lispro 100 unit/mL 12 - 18 unit subcut TIDWM 12/16/24 12/16/24 subcutaneous pen (Humalog KwikPen (U-100) Insulin) oxycodone-acetaminophen 5 mg-325 1 tab PO Q6H PRN pain 12/16/24 12/16/24 mg tablet ranolazine 500 mg tablet,extended 500 mg PO BID 12/16/24 12/16/24 release,12 hr aspirin 81 mg tablet,delayed 81 mg PO BID 6 weeks #84 tabs 12/19/24 release cyclobenzaprine 10 mg tablet 10 mg PO TID PRN muscle spasm #30 12/19/24 tabs oxycodone 5 mg tablet 5 mg PO Q4HR PRN Moderate Pain 12/19/24 (Level 4-6) 3 days #20 tabs sodium chloride 1,000 mg soluble 1,000 mg PO BID #14 tabs 12/19/24 tablet LABS 12/19/24 04:55 12/19/24 08:12 Discharge Plan Discharge Patient Disposition: [facility] DC/Xfer Prescriptions: New aspirin 81 mg Tablet,Delayed Release (Dr/Ec) 81 mg PO BID 42 Days Qty: 84 0RF cyclobenzaprine 10 mg Tablet 10 mg PO TID PRN (Reason: muscle spasm) Qty: 30 0RF oxycodone 5 mg Tablet 5 mg PO Q4HR PRN (Reason: Moderate Pain (Level 4-6)) 3 Days Qty: 20 0RF sodium chloride 1,000 mg Tablet,Soluble 1,000 mg PO BID Qty: 14 0RF Continued tamsulosin 0.4 mg capsule See Rx Instructions .ROUTE .COMPLEX Qty: 90 3RF Dose Instruction: TAKE ONE CAPSULE BY MOUTH ONE TIME DAILY Rx Instructions: TAKE ONE CAPSULE BY MOUTH ONE TIME DAILY pantoprazole 40 MG tablet,delayed release (DR/EC) 40 mg PO QDAC ferrous sulfate 325 MG tablet 325 mg PO DAILY cetirizine 10 MG tablet 10 mg PO DAILY nitroglycerin 0.4 MG tablet, sublingual 0.4 mg sublingual [id number] PRN (Reason: Pain 1-4) duloxetine 30 MG capsule,delayed release(DR/EC) 30 mg PO HS Rx Instructions: 60mg am, 30mg pm isosorbide mononitrate 120 MG tablet extended release 24 hr 120 mg PO DAILY acetaminophen 500 MG tablet 500 mg PO TID PRN (Reason: As Needed Per Provider Orders) coenzyme [id number] [Co Q-10 (with Vit E)] 1 EACH capsule 1 ea PO DAILY magnesium oxide 200 MG tablet,chewable 200 mg PO DAILY ranolazine 500 mg tablet extended release 12 hr 500 mg PO BID Patient Comments: TAKE ONE TABLET BY MOUTH TWICE DAILY. Swallow whole. Do not crush, break, or chew. duloxetine 60 mg capsule,delayed release(DR/EC) 60 mg PO DAILY Patient Comments: TAKE ONE CAPSULE BY MOUTH ONE TIME DAILY Rx Instructions: 60MG AM, 30MG PM atorvastatin 80 mg tablet 80 mg PO HS docusate sodium 100 mg capsule 100 mg PO DAILY PRN (Reason: constipation) Rx Instructions: take one capsule by mouth two times daily, hold for loose stools oxycodone-acetaminophen 5-325 mg tablet 1 tab PO Q6H PRN (Reason: pain) Patient Comments: TAKE 1 TABLET BY MOUTH EVERY 6 HOURS NEEDED FOR moderate PAIN (pain scale 4-6) for up to 10 days insulin lispro [Humalog KwikPen Insulin] 100 unit/mL insulin pen 12 - 18 unit SUBCUT TIDWM Rx Instructions: 16 units breakfast, 12 units lunch, 18 units dinner diclofenac sodium 1 % gel 2 g topical QID PRN (Reason: pain) Rx Instructions: apply to single elbow, wrist or hand; for hand includes palm/fingers/back of hand Mounjaro 7.5 mg/0.5 mL pen injector 7.5 mg subcut QWEEK Qty: 6.5 3RF metoprolol tartrate 50 mg tablet 75 mg PO BID Qty: 270 3RF valacyclovir 1 gram tablet 2,000 mg PO DIRECTED Rx Instructions: 2 tab BID x 1 day prn HSV outbreak Held insulin glargine [Lantus Solostar U-100 Insulin] 100 unit/mL (3 mL) insulin pen 27 - 36 unit SUBCUT BID Hold Instructions: Resume on 01/02/25. Please hold until discuss with PCP, sugars well controlled in hospital on just low dose SSI. Rx Instructions: Inject 27 units in the AM and 36 units in the PM Discontinued aspirin [Adult Low Dose Aspirin] 81 MG tablet,delayed release (DR/EC) 81 mg PO DAILY Activity Restrictions: Activity as Tolerated Activity Restrictions/Additional Instructions: Hip Pinning and Femoral Neck Fracture Postoperative Protocol [facility] have createdpostoperativefracture protocols for our patients. These are based on the latest orthopedic science and literature in order to give patients the most up to date care. Their content is designed to explain what type of injury was sustained, the type of surgery that was done and simple instructions for weight bearing, wound care, physical therapy, medicine and diet issues. Patients will hear similar information in eachpostoperativevisit but it is easy to forget what is said. The following protocol is designed to help patients in their healing with a single resource for frequently asked questions. What Was Broken Your hip is a ball and socket joint. You broketheball of your hip which is the top of the bone called the femur. The type of break you had is called afemoral neckfracture. What Was Done in Surgery Yourhip fracturewas fixed withthree stainless steel screws. This type of surgery is done for less severe femoral neck fractures to avoid the risks of longer procedures with bigger incisions like hemiarthroplasty. Home Health vs [facility] vs Rehabilitation Hospital Most patients stay in the hospital after hip surgery for 1-2 days. Some are able to go home unassisted. Others can go home with a Home Health Agency checking in on them to help with bathing and therapy. If a patient is unsafe on their own, they will need to go to a [facility] facility or rehabilitation hospital. In the hospital you will meet with physical therapists, occupational therapists, social workers and physical medicine and rehabilitation doctors who will help find which solution is best. Follow Up Appointment You should see your surgeon or his physician phlebotomist lab assistant 10-14 days after surgery. Usually, this appointment is made when you schedule surgery. You will be seen at 2 weeks, 6 weeks and 3 months from surgery where the provider will examine you and x-rays will be taken to follow bone healing. Wound Care Your wound was closed with sutures. After 4 days you can take off the dressing. If the wound is dry, you do not need to cover it with a new bandage. If it is leaking, replace dressing with a clean gauze pad and tape. Showering You may shower 4 days after surgery. Your dressing from surgery is waterproof. If it gets wet, remove the bandage, and place a new one. Do not immerse your wound in a bath or hot tub until your stiches or calvin are removed Pain Control You have been given a prescription for narcotic pain medication. It is ok to take anti-inflammatory medicine like Motrin (ibuprofen) or Tylenol (acetaminophen) as well. Do not take more than 4 grams of Tylenol a day or it can hurt your internal organs. Diet Eat a well-balanced diet. If you are diabetic keep your blood sugars well controlled (less than 180). High blood sugar can put you at risk for infection, wound complications and the bone not healing (nonunion). Sutures/Calvin Your wound has been closed with sutures. They will be removed at your first postoperative follow up appointment 10-14 days after surgery at the discretion of the surgeon. Weight Bearing You are toe touch weight bearing about the left leg with a front wheeled walker after surgery. You will have pain in your hip while it heals but it is safe to walk on it. Move your hip, knee, and ankle as much as possible to avoid getting stiff. Blood Clot Prophylaxis Patients with pelvis and leg fractures are at risk to get blood clots in the legs that can dislodge and travel in the bloodstream to the lungs causing disability or . There are several ways to decrease the risk of this complication. In the hospital you have pneumatic compression devices on your legs. Once discharged home take aspirin for 6 weeks. Walking and moving as much as you can is also preventative. Physical Therapy Most patients with hip fractures do not require physical therapy other than gait training to make sure you are using your assistive devices like a walker or cane correctly. Most patients need about 3-4 months of therapy to regain their preinjury range of motion and strength.An order was placed to [facility]. Please contact them to schedule your appointmetns. Return to Work Patients can usually return to a desk job or light duty after a few days. Return without restriction to jobs that require heavy lifting or manual labor usually takes about 12 weeks Driving You should not drive a car if you are still taking narcotic pain medication. You should discuss return to driving with your surgeon at follow up visits. Do not drive at this time. Hardware Removal The three screws usually stay in for life and are not routinely removed. If the fracture does not heal or you develop hip arthritis in the future the screws will be removed so a hip replacement can be done. A very small number of patients have pain at the head of the screws and have them removed a year after insertion, but this can place them at increased risk to rebreak the hip. Healing Time Hip fractures treated with surgery take about 3 months to heal completely. Younger patients heal slightly faster and older patients or those with diabetes take slightly longer to heal. Medications Take three pills of 325 mg Tylenol (acetaminophen) every 8 hours regardless of pain in a scheduled manner. Do not exceed 3000 mg of Tylenol (from ALL sources, including over the counter combination products) in a 24-hour period due to risk of liver injury. Take one pill of 5 mg oxycodone by mouth every 4-6 hours as needed for break through pain stronger than 7 out of 10 on a pain scale. Take this for severe pain 1 hour after taking the scheduled Tylenol and ibuprofen. Take 200 mg of Colace by mouth every 12 hours for constipation. Narcotic medications such as oxycodone may increase your risk of constipation after surgery. Take 4 mg of Zofran by mouth every 6 hours as needed for uncontrolled nausea or vomiting. If you have persistent nausea and vomiting call our office or seek care in the emergency department. Take one pill of 81 mg of aspirin two times daily 12 hours apart for 6 weeks for blood clot prevention. Diet: Diabetic Health Concerns: You came in because you took a fall after tripping over her dogs and landed on your hip. Your imaging showed that you had a minimally displaced femoral neck fracture. Dr. Live saw you and completed a left hip pinning. You will need further rehab to get stronger before you are able to go home, which is why you are going to a [facility] facility to help get you stronger. Please see the attached orthopedic instructions including instructions about taking aspirin 81 mg twice daily for [address] Live, your orthopedic surgeon would like to see you in his office 2 weeks from now. Please call him to set up this appointment on discharge. While you are here, you also went into a fast heart rate called atrial fibrillation with rapid ventricular response. We continued your home metoprolol, and this resolved. You are also found to have low sodium while here. I will be discharging you on a salt tab that I want you to take twice a day for the next 7 days. After this, you should get a recheck of your lab work with your primary care provider to follow-up on your sodium levels. Please see them in the next 2 weeks. We are glad you are feeling better, thank you for allowing us to take care of you. Print Language: Maltese Patient Instructions: Surgery Anesthesia After Stand Alone Forms: SNF Discharge, PCP List
== END 2024-12-19 10:00 | DRG 481 ==
LOC: ED 16:42 → MS2 19:40 → ICU 12-17 21:21
PROVIDERS: ADMIT Physician Assistant Medical; ATTEND Physician Assistant Medical
DX: N40.1 Benign prostatic hyperplasia with lower urinary tract symptoms; Z79.85 Long-term (current) use of injectable non-insulin antidiabetic drugs; F32.A Depression, unspecified; Z91.85 Personal history of military service; I10 Essential (primary) hypertension; Z79.899 Other long term (current) drug therapy; Z79.82 Long term (current) use of aspirin; Z87.891 Personal history of nicotine dependence; E11.42 Type 2 diabetes mellitus with diabetic polyneuropathy; S00.03XA Contusion of scalp, initial encounter; E03.9 Hypothyroidism, unspecified; I95.9 Hypotension, unspecified; I48.0 Paroxysmal atrial fibrillation; E87.1 Hypo-osmolality and hyponatremia; K50.90 Crohn's disease, unspecified, without complications; G47.33 Obstructive sleep apnea (adult) (pediatric); E11.65 Type 2 diabetes mellitus with hyperglycemia; Z79.4 Long term (current) use of insulin; I25.10 Atherosclerotic heart disease of native coronary artery without angina pectoris; W01.0XXA Fall on same level from slipping, tripping and stumbling without subsequent striking against object, initial encounter; N13.8 Other obstructive and reflux uropathy; Z95.1 Presence of aortocoronary bypass graft; K21.9 Gastro-esophageal reflux disease without esophagitis; R94.31 Abnormal electrocardiogram [ECG] [EKG]; S72.002A Fracture of unspecified part of neck of left femur, initial encounter for closed fracture; Z96.651 Presence of right artificial knee joint

== ENCOUNTER 2025-06-13 13:29 | Observation (INO) ==
--- NOTE | 2025-06-13 14:02 | ED Physician Documentation ---
History of Present Illness Stated complaint Stated Complaint: CP Chief complaint Chief Complaint: Cardiac Additonal information Additional information: Patient is a 74-year-old male presenting with chest discomfort that began this morning around 1130/noon. He has a significant history of recent NSTEMI with admission little over a week ago where 2 stents were placed during catheterization. Prior to that about 2 weeks ago patient had his left hip replaced, and had presented the ER few days afterward with chest pain where he was found to have A-fib with RVR. Today patient states that he had onset of vague chest discomfort that was coming and going, not related to exertion. He took 3 nitroglycerin which did not improve his symptoms. On arrival to the ER, he denies any shortness of breath, orthopnea, fevers, chills, nausea, vomit, abdominal pain. Patient states that the symptoms feel similar to his previous presentations of chest pain over the last 1 to 2 weeks. Rates his pain currently as a 6 out of 10. Denies any recent upper respiratory illness symptoms including cough, sore throat, runny nose. Review of Systems Status of ROS: See HPI Meds/Allgy Home Medications Ambulatory Orders Medication Instructions Recorded Confirmed pantoprazole 40 mg tablet,delayed 40 mg PO QDAC 04/26/25 release ferrous sulfate 325 mg (65 mg 325 mg PO DAILY 06/11/16 04/26/25 iron) tablet cetirizine 10 mg tablet 10 mg PO DAILY 06/17/1605/14 duloxetine 30 mg capsule,delayed 30 mg PO HS 06/05/23 04/26/25 release acetaminophen 500 mg tablet 500 mg PO TID PRN As Neede d Per 03/13/24 04/26/25 Provider Orders coenzyme [id number] E 100 mg-5 1 ea PO DAILY 03/13/24 04/26/25 unit capsule (Co Q-10 (with Vit E)) isosorbide mononitrate 120 mg 120 mg PO DAILY 03/13/24 04/26/25 tablet,extended release 24 hr tirzepatide 7.5 mg/0.5 mL 7.5 mg (0.5 mL) subcut QWEEK #6.5 10/09/24 04/26/25 subcutaneous pen injector mL (Mounjaro) metoprolol tartrate 50 mg tablet 75 mg (1.5 x 50 mg) P O BID #270 10/16/24 04/26/25 tabs duloxetine 60 mg capsule,delayed 60 mg PO DAILY 04/26/25 release ranolazine 500 mg tablet,extended 500 mg PO BID 04/26/25 release,12 hr insulin lispro 100 unit/mL 12 - 18 unit subcut TIDWM 0 01/19/25 04/26/25 subcutaneous pen (Humalog KwikPen (U-100) Insulin) magnesium oxide 400 mg PO QDAY 01/19/2505/14 insulin glargine 100 unit/mL (3 27 unit subcut QAM 08/1404/26/25 mL) subcutaneous pen (Lantus Solostar U-100 Insulin) insulin glargine 100 unit/mL (3 36 unit subcut QPM 08/1404/26/25 mL) subcutaneous pen (Lantus Solostar U-100 Insulin) tamsulosin 0.4 mg capsule 0.4 mg PO QDAY 01/28/2505/14 valacyclovir 1 gram tablet 2,000 mg PO DIRECTED PRN cold 01/28/25 04/26/25 sores pen needle, diabetic 32 gauge x #300 ea 02/24/2504/26" (Sure Comfort Pen Needle) atorvastatin 80 mg tablet 80 mg PO HS #90 tabs 5 04/26/25 aspirin 81 mg tablet,delayed 81 mg PO QDAY 04/26/25 release nitroglycerin 0.4 mg sublingual 0.4 mg sublingual Q5MI NX3 PRN Pain 04/26/25 04/26/25 tablet 1-4 #25 tabs Allergies Allergies Allergy/AdvReac Type Severity Reaction Status Date / Time No Known Drug Allergies Allergy Verified 06/13/25 13:40 PFSH Active Problems All Active Problems (Updated 06/11/25 @ 18:52 by Martinez Mac MD) Dyspnea (Acute) Acute non-ST elevation myocardial infarction (NSTEMI) (Acute) Dehydration (Acute) Atrial fibrillation with rapid ventricular response (Acute) Contusion of hip, left (Acute) Chest pain (Acute) Unstable angina (Acute) BMI 33.0-33.9,adult (Acute) Fall from slip, trip, or stumble (Acute) Abrasion, left knee, initial encounter (Acute) Abrasion, right knee, initial encounter (Acute) Abrasion of right hand, initial encounter (Acute) Right hand pain (Acute) Acute pain of right wrist (Acute) Acute pain of left wrist (Acute) Cheek abrasion, non-infected (Acute) Contusion of left cheek (Acute) Muscle spasm of left lower extremity (Acute) Ground-level fall (Acute) Rib pain on right side (Acute) Right knee pain (Acute) Cerumen impaction (Acute) Closed left hip fracture (Acute) Atherosclerotic heart disease of [place] coronary artery without angina pectoris (Acute) Presence of right artificial knee joint (Acute) Presence of left artificial hip joint (Acute) History of falling (Acute) Crohn's disease, unspecified, with unspecified complications (Acute) Mild protein-calorie malnutrition (Acute) Need for assistance with personal care (Acute) Cognitive communication deficit (Acute) Muscle weakness (generalized) (Acute) Hyponatremia (Acute) Contusion of scalp (Acute) Closed fracture of neck of left femur (Acute) Ground-level fall (Acute) Injury of hip and thigh (Acute) Coronary artery disease involving [place] coronary artery (Acute) Mixed hyperlipidemia (Acute) Paroxysmal atrial fibrillation (Acute 04/01/19) Essential hypertension (Acute) Type 2 diabetes mellitus with peripheral neuropathy (Acute 09/26/20) Acquired hypothyroidism (Acute) Obstructive sleep apnea on CPAP (Acute) BPH w urinary obs/LUTS (Acute) GERD (gastroesophageal reflux disease) (Acute) Depression (Acute 08/15/06) Osseous stenosis of neural canal of lumbar region (Acute 10/12/21) DJD (degenerative joint disease) of thoracic spine (Acute 05/25/21) Adenomatous colon polyp (Acute 09/14/14) Actinic skin damage (Acute) Bilateral primary osteoarthritis of knee (Acute) Atopic eczema (Acute) Herpes labialis (Acute 10/02/19) Medical History Medical History Inflammatory bowel disease (Crohn's disease) possible Crohn's in 2018, not noted on future studies 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 Autoimmune hemolytic anemias (02/13/18) Acquired hemolytic anemia (02/17/16) Surgical History Surgical History H/O colonoscopy 04/2024, no polyps + sigmoid diverticulosis Fragmented bone 02/2024, removed from right anterior pisano H/O esophagogastroduodenoscopy 10/2022, mild chronic inflammation S/P ablation of atrial flutter 02/2022 S/P lumbar laminectomy 01/2022, L2-3 H/O endoscopy 06/2020, prominent papilla, o/w benign Arthrodesis present 11/2019, right foot, digists 2-5 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 Santana S/P cholecystectomy Status post Matt fundoplication H/O heart artery stent 11/2012, GE-RCA + proximal PDA 04/2015, GE-distal RCA H/O heart artery stent 2001, RCA x 2 stents Family History Family History Mother FH: early coronary artery disease Father FH: early coronary artery disease CVA (cerebral vascular accident) Social History Social History (Updated 04/26/25 @ 14:32 by Sanju Rodgers LPN) If you are a former smoker, when did you quit? (Date/Year): 1980 Number of Years Smoked: 24 How many cigarettes a day do you smoke? (20 cigarettes=1 Pk): 20 Second hand tobacco smoke exposure: No Do you dip or chew tobacco?: No Patient requests smoking cessation consult: No Initiate information on smoking cessation: No Living arrangement: At home Marital Status: Living Condition: With spouse/s.o. 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 HENMT normocephalic and head/scalp atraumatic Eyes PERRL Chest palpation of chest normal Respiratory breath sounds equal bilaterally, normal respiratory effort and clear to auscultation bilaterally Cardiovascular normal heart rate noted and regular rhythm noted Sternotomy scar present, regular rate and rhythm, normal S1-S2, no murmur. Radial pulses 2+ and symmetric. Gastrointestinal abdomen soft to palpation, nontender to palpation and nontender to percussion Genitourinary no CVA tenderness Extremities normal to inspection Neurology Alert and oriented x 3, cranial nerves grossly intact. Moving all extremities. Sensation intact throughout habitus. Results Vitals Vitals: Vital Signs - 24 hr 06/13/25 13:39 06/13/25 13:40 06/13/25 14:51 Temperature 36.9 C Temperature Source Temporal Artery Scan Pulse Rate 60 64 Respiratory Rate 20 15 Blood Pressure 118/59 L 144/52 H O2 Saturation 95 97 O2 Source Room air Room air Pain Intensity 7 7 7 06/13/25 15:26 06/13/25 15:40 06/13/25 16:52 Temperature Temperature Source Pulse Rate 63 Respiratory Rate 19 Blood Pressure 155/68 H O2 Saturation 96 O2 Source Room air Pain Intensity 3 0 8 06/13/25 17:00 Temperature Temperature Source Pulse Rate Respiratory Rate 18 Blood Pressure 130/80 O2 Saturation 97 O2 Source Room air Pain Intensity 4 Oxygen O2 Source [With Activity] Room air O2 Source Room air Labs Labs: Laboratory Tests 06/13/25 06/13/25 14:10 17:02 WBC 11.0 H RBC 3.24 L Hgb 9.7 L Hct 29.7 L MCV 91.7 MCH 29.9 MCHC 32.7 RDW 13.1 Plt Count 267 MPV 9.9 Neut # (Auto) 8.9 H Lymph # (Auto) 0.7 L Emanuel # (Auto) 0.9 Eos # (Auto) 0.3 Baso # (Auto) 0.1 Absolute Nucleated RBC 0.00 Nucleated RBC % 0.0 Sodium 131 L Potassium 4.1 Chloride 97 L Carbon Dioxide 27 Anion Gap 7.0 BUN 12 Creatinine 0.9 Estimated GFR (MDRD) 82 L Glucose 193 H Calcium 8.4 L Total Bilirubin 1.3 H AST 14 ALT 15 Alkaline Phosphatase 101 Troponin I High Sens 29.1 H* 27.5 H* Total Protein 5.6 L Albumin 3.5 Globulin 2.1 Albumin/Globulin Ratio 1.7 Lipase 12 PD Medical Decision Making ED course ED course: Assessment: Patient is a 74-year-old male with significant history of CAD, recent hip replacement, presenting with chest pain began at noon. Notably over the last couple weeks has had a few episodes of chest pain, all in the setting of recent hip replacement. Has had no PEs found on subsequent CT scans, though did get transferred to [facility] in [place] where he underwent cardiac catheterization had 2 stents deployed 9 days ago. Patient states that he is been compliant on his therapy since then. States that his pain started abruptly today around noon with nitroglycerin not helping. Heart score of 6. DDx: Includes but is not limited to, ACS, VA, NSTEMI, STEMI, coronary vasospasm, ventricular aneurysm, pericarditis, pericardial effusion, pulmonary embolism, etc. Workup: CT chest without evidence of PE. Labs notable for a troponin of 29, repeat after 3 hours of 27/downtrending. Otherwise grossly unremarkable and unchanged compared to previous. Treatment: Fentanyl for pain. Discussion: I discussed his presentation with on-call technical report writer at [facility] in [place]. Patient follows with cardiology group there. His troponin has down trended since 2 days ago when he was here previously, at that time his troponin was in the 70s, now it is in the upper 20s. Despite this, he has a significant coronary history with recent stenting, and continues to have symptoms and elevated troponins. With his elevated heart score, I recommended admission for observation overnight to continue to trend his troponins and continue workup otherwise as indicated during his admission. I discussed his presentation with hospital service who agreed admit him to their service. Disposition: Admit hospitalist service Discharge Plan Discharge Prescriptions: No Action pantoprazole 40 MG tablet,delayed release (DR/EC) 40 mg PO QDAC ferrous sulfate 325 MG tablet 325 mg PO DAILY cetirizine 10 MG tablet 10 mg PO DAILY duloxetine 30 MG capsule,delayed release(DR/EC) 30 mg PO HS Rx Instructions: 60mg am, 30mg pm isosorbide mononitrate 120 MG tablet extended release 24 hr 120 mg PO DAILY acetaminophen 500 MG tablet 500 mg PO TID PRN (Reason: As Needed Per Provider Orders) coenzyme [id number] [Co Q-10 (with Vit E)] 1 EACH capsule 1 ea PO DAILY ranolazine 500 mg tablet extended release 12 hr 500 mg PO BID Patient Comments: TAKE ONE TABLET BY MOUTH TWICE DAILY. Swallow whole. Do not crush, break, or chew. duloxetine 60 mg capsule,delayed release(DR/EC) 60 mg PO DAILY Patient Comments: TAKE ONE CAPSULE BY MOUTH ONE TIME DAILY Rx Instructions: 60MG AM, 30MG PM insulin lispro [Humalog KwikPen Insulin] 100 unit/mL insulin pen 12 - 18 unit SUBCUT TIDWM Rx Instructions: 16 units breakfast, 12 units lunch, 18 units dinner. Sliding scale aspirin 81 mg tablet,delayed release (DR/EC) 81 mg PO QDAY Mounjaro 7.5 mg/0.5 mL pen injector 7.5 mg subcut QWEEK Qty: 6.5 3RF metoprolol tartrate 50 mg tablet 75 mg PO BID Qty: 270 3RF valacyclovir 1 gram tablet 2,000 mg PO DIRECTED PRN (Reason: cold sores) Rx Instructions: 2 tab BID x 1 day prn HSV outbreak tamsulosin 0.4 mg capsule 0.4 mg PO QDAY (DME) pen needle, diabetic [Sure Comfort Pen Needle] 32 gauge x 5/32" needle See Rx Instructions .Route Qty: 300 3RF Rx Instructions: Use 1 pen needle under skin subcutaneously five times daily to inject insulin magnesium oxide 400 mg magnesium tablet 400 mg PO QDAY insulin glargine [Lantus Solostar U-100 Insulin] 100 unit/mL (3 mL) insulin pen 27 unit subcut QAM insulin glargine [Lantus Solostar U-100 Insulin] 100 unit/mL (3 mL) insulin pen 36 unit subcut QPM atorvastatin 80 mg tablet 80 mg PO HS Qty: 90 1RF nitroglycerin 0.4 mg tablet, sublingual 0.4 mg sublingual [id number] PRN (Reason: Pain 1-4) Qty: 25 3RF Rx Instructions: take 1 tablet sublingual every 5 minutes max dose 3 pills Print Language: Ecuadorean Stand Alone Forms: PCP List
[2025-06-13 14:18] LABS: HCT - HEMATOCRIT 29.7 % (42.0-52.0); HGB - HEMOGLOBIN 9.7 g/dL (14.0-18.0); MEAN PLATELET VOLUME 9.9 fL (7.4-11.4); NRBC ABSOLUTE COUNT (AUTO) 0.00 x10^3/uL; NUCLEATED RED BLOOD CELLS AUTO 0.0 /100WBC; PLT - PLATELET COUNT 267 10^3/uL (130-450); RED CELL DISTRIBUTION WIDTH 13.1 % (12.0-15.0)
[2025-06-13 14:38] LABS: ALT ALANINE AMINOTRANSFERASE 15.0 IU/L (10-60); AST ASPARTATE AMINOTRANSFERASE 14.0 IU/L (10-42); BUN - BLOOD UREA NITROGEN 12.0 mg/dL (6-20); CARBON DIOXIDE - CO2 27.0 mmol/L (21-32); CREATININE 0.9 mg/dL (0.6-1.3); GFR - MDRD 82.0 (>89)
--- NOTE | 2025-06-13 14:39 | XRAY Report ---
PROCEDURE: XR Chest 2V INDICATIONS: chest pain TECHNIQUE: 2 views of the chest were obtained. COMPARISON: None. FINDINGS: Instrumentation: Midline sternal wires and atrial appendage clip Heart size, mediastinum and pulmonary vasculature: Unremarkable. Lungs and pleural spaces: Clear. No pneumothorax or pleural effusion. Elevated right hemidiaphragm Osseous structures: Unremarkable IMPRESSION: Unremarkable two-view chest x-ray Reviewed by: Nadeem Carlin MD on 06/13/2025 1:37 PM AKDT Approved by: Nadeem Carlin MD on 06/13/2025 1:37 PM AKDT Station ID: [id number]
[2025-06-13 14:44] LABS: TROPONIN I HIGH SENSITIVITY 29.1 ng/L (2.3-19.7)
[2025-06-13] MEDS: fentaNYL 100 MCG/2 ML VIAL IVP STA ×2 (14:51→16:52)
--- OUTSIDE RECORDS SUMMARY | 2025-06-13 15:30 | EXTERNAL MEDICAL SUMMARY RPT | Continuity of Care Document ---
Author Organization [facility] Address [address] [place] [id number] Phone Problems date description facility 2025-03-08 16:11 Fracture of unspecif ied part of neck of left femur, [facility] 2025-03-11 11:19 Fracture of unspecif ied part of neck of left femur, [facility] 2025-03-16 10:16 Fracture of unspecif ied part of neck of left femur, [facility] 2025-03-16 11:02 Fracture of unspecif ied part of neck of left femur, [facility] 2025-04-05 10:06 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 [facility] 10:06 Hypo-osmolality and [facility]onatremi a [facility]25-04-05 10:06 Essential (primary) hypertensio n [facility] 2025-04-05 10:06 Atherosclerotic hear t disease of [place] coronary artery without angina pectoris [facility] 2025-04-05 10:06 Paroxysmal atrial fibrillation [facility] 2025-04-05 10:06 [facility] 2025-04-05 10:06 Other obstructive and reflux ur opathy [facility] 2025-04-05 10:06 Benign prostatic hyp erplasia with lower urinary tract symptoms [facility] 2025-04-05 10:06 Fracture of unspecif ied part of neck of left femur, [facility] 2025-04-05 10:06 Fall on same level, unspecified , [facility] 2025-04-12 10:57 Fracture of unspecif ied part of neck of left femur, [facility] 2025-04-12 14:56 Fracture of unspecif ied part of neck of left femur, initial encounter for closed fracture [facility] 2025-04-12 14:57 Fracture of unspecif ied part of neck of left femur, initial encounter for closed fracture [facility] 2025-04-13 00:03 Fracture of unspecif ied part of neck of left femur, initial encounter for closed fracture [facility] 2025-04-13 07:57 Fracture of unspecif ied part of neck of left femur, [facility] 2025-04-13 08:44 Fracture of unspecif ied part of neck of left femur, [facility] 2025-04-13 09:08 Fracture of unspecif ied part of neck of left femur, [facility] 2025-04-13 13:27 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 [facility] 2025-04-13 13:27 Hypo-osmolality and [facility]onatremi a [facility] 2025-04-13 13:27 Essential (primary) [facility]ensio n [facility] 2025-04-13 13:27 Atherosclerotic hear t disease of [place] coronary artery without angina pectoris [facility] 2025-04-13 13:27 Paroxysmal atrial fibrillation [facility] 2025-04-13 13:27 Pain in left hip [facility] 2025-04-13 13:27 Pain in right knee [facility] 2025-04-13 13:27 Other muscle spasm [facility] 2025-04-13 13:27 Myalgia, unspecified site [facility] 2025-04-13 13:27 Other obstructive and reflux ur opathy [facility] 2025-04-13 13:27 Benign prostatic hyp erplasia with lower urinary tract symptoms [facility] 2025-04-13 13:27 Pleurodynia [facility] 2025-04-13 13:27 Headache, unspecified [facility] 2025-04-13 13:27 Weakness [facility] 2025-04-13 13:27 Unspecified injury of head, ini [facility] 2025-04-13 13:27 Abrasion of right forearm, init [facility] 2025-04-13 13:27 Fracture of unspecif ied part of neck of left femur, initial encounter [facility] closed [facility] 2025-04-13 13:27 Fall on same level, unspecified , [facility] encounter [facility] 2025-04-19 08:56 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 [facility]25-04-19 08:56 Hypo-osmolality and hyponatremi a [facility] 2025-04-19 08:56 Essential (primary) hypertensio n [facility] 2025-04-19 08:56 Atherosclerotic hear t disease of [place] coronary artery without angina pectoris [facility] 2025-04-19 08:56 Paroxysmal atrial fibrillation [facility] 2025-04-19 08:56 Pain in left hip [facility] 2025-04-19 08:56 Myalgia, [facility] 2025-04-19 08:56 Other obstructive and reflux ur opathy [facility] 2025-04-19 08:56 Benign prostatic hyp erplasia with lower urinary tract symptoms [facility] 2025-04-19 08:56 Headache, unspecified [facility] 2025-04-19 08:56 Weakness [facility] 2025-04-19 08:56 Unspecified injury of head, ini [facility]ial encounter [facility] 2025-04-19 08:56 Abrasion of right forearm, init ial encounter [facility] 2025-04-19 08:56 Fracture of unspecif ied part of neck of left femur, initial encounter for closed fracture [facility] 2025-04-19 08:56 Fall on same level, unspecified , [facility] encounter [facility] 2025-04-19 08:58 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 [facility] 2025-04-19 08:58 Hypo-osmolality and hyponatremi a [facility] 2025-04-19 08:58 Essential (primary) hypertensio n [facility] 2025-04-19 08:58 Atherosclerotic hear t disease of [place] coronary artery without angina pectoris [facility] 2025-[facility]19 08:58 Paroxysmal atrial fibrillation [facility] 2025-04-19 08:58 Pain in left hip [facility] 2025-04-19 08:58 Myalgia, unspecified site [facility] 2025-04-19 08:58 Other obstructive and reflux ur opathy [facility] 2025-04-19 08:58 Benign prostatic hyp erplasia with lower urinary tract symptoms [facility] 2025-04-19 08:58 Headache, unspecified [facility] 2025-04-19 08:58 Weakness [facility] 2025-04-19 08:58 Unspecified injury of head, ini tial encounter [facility] 2025-04-19 08:58 Abrasion of right forearm, init ial encounter [facility] 2025-04-19 08:58 Fracture of unspecif ied part of neck of left femur, initial encounter for closed fracture [facility] 2025-04-19 08:58 Fall on same level, unspecified , initial encounter [facility] 2025-04-20 10:14 Chest pain, unspecified [facility] 2025-04-26 16:06 Chest pain, unspecified [facility] 2025-04-28 10:45 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 [facility] 2025-04-28 10:45 Essential (primary) hypertensio n [facility] 2025-04-28 10:45 Atherosclerotic hear t disease of [place] coronary artery without angina pectoris [facility] 2025-04-28 10:45 Paroxysmal atrial fibrillation [facility] 2025-04-28 10:45 Other obstructive and reflux ur opathy [facility] 2025-04-28 10:45 Benign prostatic hyp erplasia with lower urinary tract symptoms [facility] 2025-04-28 10:45 Fracture of unspecif ied part of neck of left femur, initial encounter for closed fracture [facility] 2025-04-28 10:45 Fall on same level, unspecified , initial encounter [facility] 2025-04-28 10:46 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 [facility] 2025-04-28 10:46 Hypo-osmolality and hyponatremi a [facility] 2025-04-28 10:46 Essential (primary) hypertensio n [facility] 2025-04-28 10:46 Atherosclerotic hear t disease of [place] coronary artery without angina pectoris [facility] 2025-04-28 10:46 Paroxysmal atrial fibrillation [facility] 2025-04-28 10:46 Pain in left hip [facility] 2025-04-28 10:46 Other obstructive and reflux ur opathy [facility] 2025-04-28 10:46 Benign prostatic hyp erplasia with lower urinary tract symptoms [facility] 2025-04-28 10:46 Fracture of unspecif ied part of neck of left femur, initial encounter for closed fracture [facility] 2025-04-28 10:46 Fall on same level, unspecified , initial encounter [facility] 2025-06-01 13:49 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 [facility] 2025-06-01 13:49 Hypo-osmolality and hyponatremi a [facility] 2025-06-01 13:49 [facility] 13:49 Atherosclerotic hear t disease of [place] coronary artery without angina pectoris [facility] 2025-06-01 13:49 Paroxysmal atrial fibrillation [facility] 2025-06-01 13:49 Pain in left hip [facility] 2025-06-01 13:49 Myalgia, unspecified site [facility] 2025-06-01 13:49 Other obstructive and reflux ur opathy [facility] 2025-06-01 13:49 Benign prostatic hyp erplasia with lower urinary tract symptoms [facility] 2025-06-01 13:49 Chest pain, unspecified [facility] 2025-06-01 13:49 Headache, unspecified [facility] 2025-06-01 13:49 Weakness [facility] 2025-06-01 13:49 Unspecified injury of head, ini tial encounter [facility] 2025-06-01 13:49 Abrasion of right forearm, init ial encounter [facility] 2025-06-01 13:49 Fracture of unspecif ied part of neck of left femur, initial encounter for closed fracture [facility] 2025-06-01 13:49 Fall on same level, unspecified , initial encounter [facility] 2025-06-04 13:29 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 [facility] 2025-06-04 13:29 Essential (primary) hypertensio n [facility] 2025-06-04 13:29 Atherosclerotic hear t disease of [place] coronary artery without angina pectoris [facility] 2025-06-04 13:29 Paroxysmal atrial fibrillation [facility] 2025-06-04 13:29 Other obstructive and reflux ur opathy [facility] 2025-06-04 13:29 Benign prostatic hyp erplasia with lower urinary tract symptoms [facility] 2025-06-04 13:29 Fracture of unspecif ied part of neck of left femur, initial encounter for closed fracture [facility] 2025-06-04 13:29 Fall on same level, unspecified , initial encounter [facility] 2025-06-04 13:30 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 [facility] 2025-06-04 13:30 Hypo-osmolality and hyponatremi a [facility] 2025-06-04 13:30 Essential (primary) hypertensio n [facility] 2025-06-04 13:30 Atherosclerotic hear t disease of [place] coronary artery without angina pectoris [facility] 2025-06-04 13:30 Paroxysmal atrial fibrillation [facility] 2025-06-04 13:30 [facility] in left hip [facility] 2025-06-04 13:30 Other obstructive and reflux ur opathy [facility] 2025-06-04 13:30 Benign prostatic hyp erplasia with lower urinary tract symptoms [facility] 2025-06-04 13:30 Fracture of unspecif ied part of neck of left femur, initial encounter for closed fracture [facility] 2025-06-04 13:30 Fall on same level, unspecified , initial encounter [facility] 2025-06-06 13:05 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 [facility] 2025-06-06 13:05 Hypo-osmolality and hyponatremi a [facility] 2025-06-06 13:05 Essential (primary) hypertensio n [facility] 2025-06-06 13:05 Atherosclerotic hear t disease of [place] coronary artery without angina pectoris [facility] 2025-06-06 13:05 Paroxysmal atrial fibrillation [facility] 2025-06-06 13:05 Pain in left hip [facility] 2025-06-06 13:05 Myalgia, unspecified site [facility] 2025-06-06 13:05 Other obstructive and reflux ur opathy [facility] 2025-06-06 13:05 Benign prostatic hyp erplasia with lower urinary tract symptoms [facility] 2025-06-06 13:05 Chest pain, unspecified [facility] 2025-06-06 13:05 [facility]ache, [facility] 2025-[facility]06 13:05 Weakness [facility] 2025-06-06 13:05 Unspecified injury of head, ini tial encounter [facility] 2025-06-06 13:05 Abrasion of right forearm, init ial encounter [facility] 2025-06-06 13:05 Fracture of unspecif ied part of neck of left femur, initial encounter for closed fracture [facility] 2025-06-06 13:05 Fall on same level, unspecified , initial encounter [facility] 2025-06-06 13:06 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 [facility] 2025-06-06 13:06 Essential (primary) hypertens n [facility] 2025-06-06 13:06 Atherosclerotic hear t disease of [place] coronary artery without angina pectoris [facility] 2025-06-06 13:06 Paroxysmal atrial fibrillation [facility] 2025-06-06 13:06 Other obstructive and reflux ur opathy [facility] 2025-06-06 13:06 Benign prostatic hyp erplasia with lower urinary tract symptoms [facility] 2025-06-06 13:06 Fracture of unspecif ied part of neck of left femur, initial encounter for closed fracture [facility] 2025-06-06 13:06 Fall on same level, unspecified , initial encounter [facility] 2025-06-07 15:38 Pain in left hip [facility] 2025-06-09 10:42 Encounter for observ ation for other suspected diseases and conditions ruled out [facility] 2025-06-09 11:14 [facility] in left hip [facility] Results/Labs test date facility value unit notes Result panel 1 NUCLEATED RED BLOOD CELLS AUTO 2025-04-18 12:30 [facility] 0.0 /100wbc (missing) BASOPHILS # (AUTO) 2025-04-18 12:30 [facility] 0.0 10 3/ul (missing) NRBC ABSOLUTE COUNT (AUTO) 2025-04-18 12:30 [facility], 0.00 x10 3/ul (missing) BILIRUBIN,TOTAL 2025-04-18 12: [facility] 0.4 mg/dl As of April 2023 testing method has changed, this may include reference ranges. EOSINOPHILS # (AUTO) 2025-04-18 12:30 [facility] 0.5 10 3/ul (missing) MONOCYTES # (AUTO) 2025-04-18 12:30 [facility] 0.6 10 3/ul (missing) LYMPHOCYTES # (AUTO) 2025-04-18 12:30 [facility] 0.8 10 3/ul (missing) CREATININE 2025-04-18 12: [facility], 1.2 mg/dl As of April 2023 testing method has changed, this may include reference ranges. ALBUMIN/GLOBULIN RATIO 2025-04-18 12:30 [facility] 1.9 (missing) (missing) CHLORIDE 2025-04-18 12:30 [facility] 101 mmol/l As of April 2023 testing method has changed, this may include reference ranges. ALT ALANINE AMINOTRANSFERASE 2025-04-18 12:30 [facility] 12 iu/l As of April 2023 testing method has changed, this may include reference ranges. BUN - BLOOD UREA NITROGEN 2025-04-18 12:30 [facility] 12 mg/dl As of April 2023 testing method has changed, this may include reference ranges. AST ASPARTATE AMINOTRANSFERASE 2025-04-18 12:30 [facility] 13 iu/l As of April 2023 testing method has changed, this may include reference ranges. HGB - HEMOGLOBIN 2025-04-18 12:30 [facility] 13.4 g/dl (missing) GLUCOSE 2025-04-18 12:30 [facility] 130 mg/dl As of April 2023 testing method has changed, this may include reference ranges. SODIUM 2025-04-18 12:30 [facility] 133 mmol/l (missing) RED CELL DISTRIBUTION WIDTH 2025-04-18 12:30 [facility] 14.1 % (missing) PLT - PLATELET COUNT 2025-04-18 12:30 [facility] 148 10 3/ul (missing) ALKALINE PHOSPHATASE 2025-04-18 12:30 [facility] 154 iu/l As of April 2023 testing method has changed, this may include reference ranges. GLOBULIN 2025-04-18 12:30 [facility] 2.0 g/dl (missing) LIPASE 2025-04-18 12:30 [facility] 20 u/l As of April 2023 testing method has changed, this may include reference ranges. CARBON DIOXIDE - CO2 2025-04-18 12:30 [facility] 26 mmol/l As of April 2023 testing method has changed, this may include reference ranges. MEAN CORPUSCULAR HEMOGLOBIN 2025-04-18 12:30 [facility] 29.5 pg (missing) TROPONIN I HIGH SENSITIVITY 2025-04-18 12:30 [facility] 3.2 ng/l A HIGH SENSITIVITY TROPONIN result of >= 14.9 ng/L for females is considered POSITIVE. A HIGH SENSITIVITY TROPONIN result of >= 19.8 ng/L for males is considered POSITIVE. A HIGH SENSITIVITY TROPONIN result of >= 17.9 ng/L for unspecified is considered POSITIVE. NEUTROPHILS # (AUTO) 2025-04-18 12:30 [facility] 3.5 10 3/ul (missing) ALBUMIN 2025-04-18 12:30 [facility] 3.7 g/dl As of April 2023 testing method has changed, this may include reference ranges. MEAN CORPUSCULAR HGB CONC 2025-04-18 12:30 [facility] 32.5 g/dl (missing) POTASSIUM 2025-04-18 12:30 [facility] 4.4 mmol/l As of April 2023 testing method has changed, this may include reference ranges. RED BLOOD COUNT 2025-04-18 12:30 [facility] 4.55 10 6/ul (missing) HCT - HEMATOCRIT 2025-04-18 12:30 [facility] 41.2 % (missing) WHITE BLOOD COUNT 2025-04-18 12:30 [facility] 5.5 x10 3/ul (missing) TOTAL PROTEIN 2025-04-18 12:30 [facility] 5.7 g/dl As of April 2023 testing method has changed, this may include reference ranges. GFR - MDRD 2025-04-18 12:30 [facility] 59 (missing) Social History date description facility
--- NOTE | 2025-06-13 16:40 | CT Report ---
PROCEDURE: CT Angio Chest INDICATIONS: Pulmonary embolism ruleout TECHNIQUE: Helical axial CT of the chest was obtained during the angiographic phase of an intravenous contrast injection. Multiplanar and MIP reformats utilized. CONTRAST: COMPARISON: None FINDINGS: Vasculature: No evidence of pulmonary embolism, aortic dissection or aneurysm. Lungs and pleura: Small left pleural effusion Mediastinum: Heart size is normal. Dense coronary artery vascular calcification No pericardial effusion. No large vessel abnormality. No mediastinal adenopathy by size criteria. Chest wall and lower neck: Thyroid is unremarkable. No axillary or supraclavicular adenopathy by size. Bones: No aggressive osseous abnormality. Midline sternal wires. Upper Abdomen: Cholecystectomy IMPRESSION: No evidence of pulmonary embolism, aortic dissection or aneurysm Small left pleural effusion. Dense coronary artery vascular calcification Reviewed by: Nadeem Carlin MD on 06/13/2025 3:39 PM AKDT Approved by: Nadeem Carlin MD on 06/13/2025 3:39 PM AKDT Station ID: [id number]
--- NOTE | 2025-06-13 19:21 | HISTORY & PHYSICAL EXAMINATION ---
Chief Complaint Chief Complaint Chief Complaint: chest discomfort History of Present Illness Admitted From Admitted From:: home History Obtained From Records Reviewed: dc summary [facility] 06/01-, 6.-04/20/2025 History obtained from: Patient History of Present Illness HPI Comment/Other: 74 y o male who presents to the ED for the second time this week with dyspnea and chest pressure. From April 18 to April 20 he was admitted at [facility] for chest discomfort. This was after transfer from [facility] for unstable angina. During that admission his serial troponins were negative and he had nuclear stress test. Nuclear stress test 04/20/2025 was abnormal low risk study. The findings were expected based on his cardiac cath in 2022 which showed patent grafts, patent RCA stents, moderate circumflex stenosis and diffuse small vessel disease, not amenable to PCI/angioplasty or bypass. Recommendation on discharge from [facility] on 04/20/2025 was to continue medical management with aspirin, statin, Imdur, Ranexa, and metoprolol. Further summing up his cardiac history is a cardiac clearance for hip replacement dated May 21, 2025. This is a patient who is status post CABG in 2019 with subsequent stents to the RCA in 2022 paroxysmal atrial fibrillation status post left atrial appendage ligation in 2021, atrial flutter/atrial tachycardia ablation in 2021, hypertension hyperlipidemia and diabetes. At the time of his preorthopedic surgery cardiology visit his RC HI score was 2. He underwent left total hip arthroplasty on 06/01/2025. At [facility]. On 06/04/2025 he presented to our emergency department after slipping out of his chair at home. He states that he did not fall he just slipped to the floor out of his chair. He was unable to get up by himself and therefore the paramedics came to the home and suggested that he come into the emergency department to have his hip checked. It was at that visit that he was in atrial fibrillation with RVR to a rate in the 160s. His troponin was elevated at 32.8. He was then transferred up to [place]. I do not have a discharge summary from that admission. Reportedly he underwent cardiac catheterization and stent placement x 2 at that admission to [facility]. Amiodarone was added to his medication regimen and he was started on Brilinta and continued on aspirin. In any event presented to our emergency department on 06/11/2025 with complaints of shortness of breath and related chest pressure. He relates this feeling of shortness of breath when he stands and walks to the institution of amiodarone therapy. At the time of his ED visit on June 11 his amiodarone was decreased from 400 mg twice daily to 200 mg twice daily. He had a CTA of the chest completed which was negative for PE. His troponin was minimally elevated in the 20s at that time. His dough mixing machine operator in [place] was consulted by Dr. Barnett at the time of that ED visit. Today he presents with similar symptoms. This feeling of chest tightness and not being able to catch his breath when he stands up to ambulate. He will has a lot of anxiety surrounding getting better from his recent left hip replacement. He had a pinning of a left femoral neck fracture in November of this year and just has not had complete resolution of his hip since comes since that time. Is very telling to me when he says to me I am "scared to " every time I stand up to walk. Robaxin has reportedly been helpful for some of his chest tightness and discomfort. With regards to his blood sugars, he has been having some difficulty staying on his diabetic regimen of late. His a.m. blood sugars have been 150-160 recently. He is normally on Mounjaro but has been off this for several weeks due to all of these health events. He normally takes it on Mondays and his plan was to take it tomorrow. He has continued to be on oxycodone after his hip surgery and usually takes10 mg at bedtime. He has a remote smoking history quit 43 years ago he was a 2 pack/day smoker for 9 years. He denies any lung disease. He states when he gets a cold he normally clears it within about a week he does not have chronic cough. Reportedly had an echocardiogram at his most recent admission to [facility] for cardiac cath and his echocardiogram is normal. He denies diagnosis of congestive heart failure. He lives with his Vikram who is in good health. She would be his surrogate decision maker were he unable to make his medical decisions. He does not have a POLST form and he would like to be full code. He would like us to keep him alive if it is possible and then consult his for any further decisions. He has 2 children who live in [place] and check in with him regularly. His PCP is Elvin Davis. He has a follow-up scheduled with his PCP in several days. He is supposed to see his dough mixing machine operator, Dr. Garcia at [facility] in [place] on June 29, 2025. Meds/Allgy Home Medications Ambulatory Orders Medication Instructions Recorded Confirmed pantoprazole 40 mg tablet,delayed 40 mg PO QDAC 04/26/25 release ferrous sulfate 325 mg (65 mg 325 mg PO DAILY 06/11/16 04/26/25 iron) tablet cetirizine 10 mg tablet 10 mg PO DAILY 06/17/1605/14 duloxetine 30 mg capsule,delayed 30 mg PO HS 06/05/23 04/26/25 release acetaminophen 500 mg tablet 500 mg PO TID PRN As Neede d Per 03/13/24 04/26/25 Provider Orders coenzyme [id number] E 100 mg-5 1 ea PO DAILY 03/13/24 04/26/25 unit capsule (Co Q-10 (with Vit E)) isosorbide mononitrate 120 mg 120 mg PO DAILY 03/13/24 04/26/25 tablet,extended release 24 hr tirzepatide 7.5 mg/0.5 mL 7.5 mg (0.5 mL) subcut QWEEK #6.5 10/09/24 04/26/25 subcutaneous pen injector mL (Mounjaro) metoprolol tartrate 50 mg tablet 75 mg (1.5 x 50 mg) P O BID #270 10/16/24 04/26/25 tabs duloxetine 60 mg capsule,delayed 60 mg PO DAILY 04/26/25 release ranolazine 500 mg tablet,extended 500 mg PO BID 04/26/25 release,12 hr insulin lispro 100 unit/mL 12 - 18 unit subcut TIDWM 0 01/19/25 04/26/25 subcutaneous pen (Humalog KwikPen (U-100) Insulin) magnesium oxide 400 mg PO QDAY 01/19/2505/14 insulin glargine 100 unit/mL (3 27 unit subcut QAM 08/1404/26/25 mL) subcutaneous pen (Lantus Solostar U-100 Insulin) insulin glargine 100 unit/mL (3 36 unit subcut QPM 08/1404/26/25 mL) subcutaneous pen (Lantus Solostar U-100 Insulin) tamsulosin 0.4 mg capsule 0.4 mg PO QDAY 01/28/25 07/05/14 valacyclovir 1 gram tablet 2,000 mg PO DIRECTED PRN cold 01/28/25 04/26/25 sores pen needle, diabetic 32 gauge x #300 ea 02/24/2504/26" (Sure Comfort Pen Needle) atorvastatin 80 mg tablet 80 mg PO HS #90 tabs 5 04/26/25 aspirin 81 mg tablet,delayed 81 mg PO QDAY 04/26/25 release nitroglycerin 0.4 mg sublingual 0.4 mg sublingual Q5MI NX3 PRN Pain 04/26/25 04/26/25 tablet 1-4 #25 tabs Allergies Allergies Allergy/AdvReac Type Severity Reaction Status Date / Time No Known Drug Allergies Allergy Verified 06/13/25 13:40 PFSH Active Problems All Active Problems (Updated 06/13/25 @ 20:06 by JEROD Canales) Leukocytosis (Acute) Chest discomfort (Acute) Status post left hip replacement (Acute) Dyspnea (Acute) Acute non-ST elevation myocardial infarction (NSTEMI) (Acute) Dehydration (Acute) Atrial fibrillation with rapid ventricular response (Acute) Contusion of hip, left (Acute) Chest pain (Acute) Unstable angina (Acute) BMI 33.0-33.9,adult (Acute) Fall from slip, trip, or stumble (Acute) Abrasion, left knee, initial encounter (Acute) Abrasion, right knee, initial encounter (Acute) Abrasion of right hand, initial encounter (Acute) Right hand pain (Acute) Acute pain of right wrist (Acute) Acute pain of left wrist (Acute) Cheek abrasion, non-infected (Acute) Contusion of left cheek (Acute) Muscle spasm of left lower extremity (Acute) Ground-level fall (Acute) Rib pain on right side (Acute) Right knee pain (Acute) Cerumen impaction (Acute) Closed left hip fracture (Acute) Atherosclerotic heart disease of [place] coronary artery without angina pectoris (Acute) Presence of right artificial knee joint (Acute) Presence of left artificial hip joint (Acute) History of falling (Acute) Crohn's disease, unspecified, with unspecified complications (Acute) Mild protein-calorie malnutrition (Acute) Need for assistance with personal care (Acute) Cognitive communication deficit (Acute) Muscle weakness (generalized) (Acute) Hyponatremia (Acute) Contusion of scalp (Acute) Closed fracture of neck of left femur (Acute) Ground-level fall (Acute) Injury of hip and thigh (Acute) Coronary artery disease involving [place] coronary artery (Acute) Mixed hyperlipidemia (Acute) Paroxysmal atrial fibrillation (Acute 04/01/19) Essential hypertension (Acute) Type 2 diabetes mellitus with peripheral neuropathy (Acute 09/26/20) Acquired hypothyroidism (Acute) Obstructive sleep apnea on CPAP (Acute) BPH w urinary obs/LUTS (Acute) GERD (gastroesophageal reflux disease) (Acute) Depression (Acute 08/15/06) Osseous stenosis of neural canal of lumbar region (Acute 10/12/21) DJD (degenerative joint disease) of thoracic spine (Acute 05/25/21) Adenomatous colon polyp (Acute 09/14/14) Actinic skin damage (Acute) Bilateral primary osteoarthritis of knee (Acute) Atopic eczema (Acute) Herpes labialis (Acute 10/02/19) Medical History Medical History Inflammatory bowel disease (Crohn's disease) possible Crohn's in 2018, not noted on future studies 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 Autoimmune hemolytic anemias (02/13/18) Acquired hemolytic anemia (02/17/16) Surgical History Surgical History H/O colonoscopy 04/2024, no polyps + sigmoid diverticulosis Fragmented bone 02/2024, removed from right anterior pisano H/O esophagogastroduodenoscopy 10/2022, mild chronic inflammation S/P ablation of atrial flutter 02/2022 S/P lumbar laminectomy 01/2022, L2-3 H/O endoscopy 06/2020, prominent papilla, o/w benign Arthrodesis present 11/2019, right foot, digists 2-5 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 Santana S/P cholecystectomy Status post Matt fundoplication H/O heart artery stent 11/2012, GE-RCA + proximal PDA 04/2015, GE-distal RCA H/O heart artery stent 2001, RCA x 2 stents Family History Family History Mother FH: early coronary artery disease Father FH: early coronary artery disease CVA (cerebral vascular accident) Social History Social History (Updated 04/26/25 @ 14:32 by Sanju Rodgers LPN) Smoking Status: Former smoker If you are a former smoker, when did you quit? (Date/Year): 1980 Number of Years Smoked: 24 How many cigarettes a day do you smoke? (20 cigarettes=1 Pk): 20 Second hand tobacco smoke exposure: No Do you dip or chew tobacco?: No Patient requests smoking cessation consult: No Initiate information on smoking cessation: No Living arrangement: At home Marital Status: Living Condition: With spouse/s.o. 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 Exam Exam Vital Signs: Vital Signs x48h Temp Pulse Resp BP Pulse Ox 06/13/25 19:41 64 20 156/71 H 98 06/13/25 19:00 64 17 156/71 H 97 06/13/25 17:00 18 130/80 97 06/13/25 15:40 63 19 155/68 H 96 06/13/25 13:40 64 15 144/52 H 97 06/13/25 13:39 36.9 C 60 20 118/59 L 95 Constitutional normal general appearance, no apparent distress and average body habitus [facility] normocephalic, hearing grossly normal bilaterally, external ears normal and dentition normal Eyes PERRL and conjunctivae normal Neck/C-Spine visual inspection normal, trachea midline and no carotid bruits Lymph no lymphadenopathy noted Chest inspection of chest normal Respiratory breath sounds equal bilaterally, normal respiratory effort, clear to auscultation bilaterally and no use of accessory muscles Cardiovascular normal heart rate noted, regular rhythm noted, no murmur, no JVD and peripheral pulses 2+ throughout Mild edema which is pitting up to the knee of the left lower extremity. Negative Homans' sign no palpable cord. Gastrointestinal abdomen soft to palpation Extremities normal to inspection see above Neurology therapist's assistant II-XII intact, no focal motor deficit noted, no sensory deficits noted and GCS 15 Psychiatry mental status grossly normal, oriented x3, thought process normal, cooperative and affect normal Skin skin color normal and no rash Operative dressing intact at the left lateral hip. Appears clean without strikethrough. There is no peripheral edema there is no warmth there is no erythema. Reportedly this dressing has been intact since the time of surgery on 06/01/2025. Conclusion/Plan Problem List (1) Dyspnea: Plan: This is a patient with extensive cardiac history and recent cardiac events who presents to the emergency department twice in the space of several days with chest tightness and discomfort. His troponins are coming down after recent cardiac event. Troponin almost 74 on 06/11, 29.1 on presentation today and 27.5 three hours later. His symptomatology is persistent. His EKG shows sinus rhythm with a rate of 58. As I sent with him in the emergency department his heart rate is in the low 60s and I see sinus rhythm on the monitor. He is not having any chest discomfort at this time. I discussed this patient with Dr. Wetzel in the emergency department. The decision was made to admit him to observation status overnight. We will continue telemetry monitoring and trend troponins every 6 hours. He was discussed with the on-call dough mixing machine operator and [place] by the emergency department. They felt that there was no indication for transfer. They are aware of his downtrending troponins. I think this observation admission is very worthy in this high risk cardiac patient, however I think it is also very telling that he tells me he is "scared to " every time he gets up to ambulate. I believe there may be a component of anxiety in his chest tightness. He also notes that this feeling in his chest is worse since amiodarone institution. I will continue him on amiodarone as this has been recommended by his cardiology practice and encouraged him to follow-up as scheduled in about 2 weeks. I do not have accurate medication reconciliation this evening, however reading through previous notes I have restarted all of his cardiac medications and I believe them to be correct to the best of my ability. Additionally has had some relief of this pain with Robaxin. I have ordered this medication. Additionally upon discharge this patient does need to establish with cardiac rehab here on the [facility]. He has been referred to cardiac rehab at [facility] by his local dough mixing machine operator but the trip is too arduous at this time. Qualifiers: Dyspnea type: unspecified Qualified Code(s): R06.00 - Dyspnea, unspecified (2) Leukocytosis: Plan: White blood cell count is elevated at 11.0. This is a new finding from 2 days ago. He is not having dysuria he is not having cough he is not running any fevers. As mentioned previously his CTA of the chest done today is negative for PE/pneumonia. He does have a small left pleural effusion. Urinalysis was not completed in the emergency department. I have ordered urinalysis. (3) Status post left hip replacement: Plan: Continue posterior hip precautions, no external rotation of his left hip. Do not cross left leg across midline. He is about 10 days status post left total hip arthroplasty. Continue oxycodone as needed pain. Continue Tylenol with oxycodone as this had been helpful at home. He does not currently have home health services for his hip arthroplasty rehab. He is planning on attending her [facility] once a week in the near future as an outpatient. (4) Type 2 diabetes mellitus with peripheral neuropathy: Plan: At home he is on Lantus insulin as well as lispro. He has also been taking GLP- 1 therapy. His current a.m. blood sugars are running 150-160 at home. I have started him on Lantus 10 units nightly and sliding scale insulin here. I have ordered hemoglobin A1c with a.m. labs. His most recent outpatient hemoglobin A1c was 6.1% on 01/28/2025. Plan Observation admission to trend troponins and monitor telemetry Patient was discussed w Dr White at the time of his admission. I have spent 85 minutes in the care of this patient today. This includes time [id number], review and ordering of diagnostic imaging and laboratory studies and consultation with other providers. Monitoring the patient's signs symptoms, evaluation of medication effectiveness and patient's response to treatment. Lab Results Lab results reviewed: Yes 06/13/25 14:10 06/13/25 14:10 EKG Results EKG Interpreted Independently: Yes EKG Findings: sinus with normal heart rate. Core Measures Anticipated LOS I expect patient to be DC'd or transferred within 96 hours.: Yes DVT/VTE - Prophylaxis VTE/DVT Device ordered at admit?: Yes VTE/DVT Prophylaxis med ordered at admit?: Yes
[2025-06-13] MEDS ORDERED: NITROGLYCERIN SL 0.4 MG TABLET SL PRN (20:05)
[2025-06-13] MEDS ORDERED: SODIUM CHLORIDE FLUSH 0.9% 10 ML SYRINGE IVP PRN (20:05)
[2025-06-13] MEDS ORDERED: ONDANSETRON ODT 4 MG TABLET TL PRN (20:05)
[2025-06-13] MEDS: METOPROLOL TARTRATE 25 MG TABLET PO SCH (20:51)
[2025-06-13] MEDS: TAMSULOSIN 0.4 MG CAPSULE PO SCH (20:53)
[2025-06-13] MEDS: ACETAMINOPHEN 325 MG TABLET PO PRN (20:53)
[2025-06-13] MEDS: oxyCODONE 5 MG TABLET PO PRN (20:53)
[2025-06-13] MEDS: ATORVASTATIN 40 MG TABLET PO SCH (20:54)
[2025-06-13] MEDS: AMIODARONE 200 MG TABLET PO SCH (20:54)
[2025-06-13] MEDS: ASPIRIN EC 81 MG TABLET PO SCH (20:54)
[2025-06-13] MEDS: INSULIN LISPRO 300 UNIT/3 ML PEN SUBQ SCH (20:58)
[2025-06-13] MEDS: INSULIN GLARGINE-YFGN 300 UNIT/3 ML PEN SUBQ SCH (20:58)
[2025-06-13] MEDS: RANOLAZINE 500 MG PO SCH (21:28)
[2025-06-13 23:16] LABS: OCCULT BLOOD,URINE NEGATIVE (NEGATIVE)
[2025-06-13 23:17] LABS: GLUCOSE, URINE (UA) NEGATIVE (NEGATIVE); KETONES,URINE (UA) NEGATIVE (NEGATIVE)
[2025-06-13 23:29] LABS: SQUAMOUS EPITHELIAL CELL,UR RARE Squamous (<= Few)
[2025-06-14] MEDS: SODIUM CHLORIDE FLUSH 0.9% 10 ML SYRINGE IVP SCH (00:34)
[2025-06-14] MEDS: MORPHINE 2 MG/ML CARPUJECT IVP ONE (01:18)
[2025-06-14] MEDS: MORPHINE 10 MG/ML VIAL IVP ONE (03:01)
[2025-06-14 04:26] LABS: HCT - HEMATOCRIT 27.4 % (42.0-52.0); HGB - HEMOGLOBIN 9.1 g/dL (14.0-18.0); MEAN PLATELET VOLUME 10.1 fL (7.4-11.4); NRBC ABSOLUTE COUNT (AUTO) 0.00 x10^3/uL; NUCLEATED RED BLOOD CELLS AUTO 0.0 /100WBC; PLT - PLATELET COUNT 230 10^3/uL (130-450); RED CELL DISTRIBUTION WIDTH 13.2 % (12.0-15.0)
[2025-06-14 04:54] LABS: BUN - BLOOD UREA NITROGEN 10.0 mg/dL (6-20); CARBON DIOXIDE - CO2 28.0 mmol/L (21-32); CREATININE 0.9 mg/dL (0.6-1.3); GFR - MDRD 82.0 (>89)
[2025-06-14] MEDS: PANTOPRAZOLE 40 MG TABLET PO SCH (05:13)
[2025-06-14] MEDS: ENOXAPARIN 40 MG/0.4 ML SYRINGE SUBQ SCH (08:18)
[2025-06-14] MEDS: FERROUS SULFATE 325 MG TABLET PO SCH (08:18)
[2025-06-14] MEDS: ISOSORBIDE MONONITRATE ER 30 MG TABLET PO SCH (08:19)
[2025-06-14] MEDS: CETIRIZINE 10 MG TABLET PO SCH (08:40)
--- NOTE | 2025-06-14 11:47 | Discharge Summary ---
Discharge Summary Admit Date: 06/13/25 Discharge Date: 06/14/25 Discharging Provider: Rhiannon Millard PA-C Primary Care Provider: LOBITO Wellington Code Status: Attempt Resuscitation DIAGNOSES Discharge Diagnoses with Status of Each Condition: Dyspnea, chronic. Leukocytosis, resolved Status post left hip replacement Diabetes, insulin-dependent, chronic HPI History of Present Illness: 74 y o male who presents to the ED for the second time this week with dyspnea and chest pressure. From April 18 to April 20 he was admitted at [facility] for chest discomfort. This was after transfer from [facility] for unstable angina. During that admission his serial troponins were negative and he had nuclear stress test. Nuclear stress test 04/20/2025 was abnormal low risk study. The findings were expected based on his cardiac cath in 2022 which showed patent grafts, patent RCA stents, moderate circumflex stenosis and diffuse small vessel disease, not amenable to PCI/angioplasty or bypass. Recommendation on discharge from [facility] on 04/20/2025 was to continue medical management with aspirin, statin, Imdur, Ranexa, and metoprolol. Further summing up his cardiac history is a cardiac clearance for hip replacement dated May 21, 2025. This is a patient who is status post CABG in 2019 with subsequent stents to the RCA in 2022 paroxysmal atrial fibrillation status post left atrial appendage ligation in 2021, atrial flutter/atrial tachycardia ablation in 2021, hypertension hyperlipidemia and diabetes. At the time of his preorthopedic surgery cardiology visit his RC HI score was 2. He underwent left total hip arthroplasty on 06/01/2025. At [facility]. On 06/04/2025 he presented to our emergency department after slipping out of his chair at home. He states that he did not fall he just slipped to the floor out of his chair. He was unable to get up by himself and therefore the paramedics came to the home and suggested that he come into the emergency department to have his hip checked. It was at that visit that he was in atrial fibrillation with RVR to a rate in the 160s. His troponin was elevated at 32.8. He was then transferred up to [place]. I do not have a discharge summary from that admission. Reportedly he underwent cardiac catheterization and stent placement x 2 at that admission to [facility]. Amiodarone was added to his medication regimen and he was started on Brilinta and continued on aspirin. In any event presented to our emergency department on 06/11/2025 with complaints of shortness of breath and related chest pressure. He relates this feeling of shortness of breath when he stands and walks to the institution of amiodarone therapy. At the time of his ED visit on June 11 his amiodarone was decreased from 400 mg twice daily to 200 mg twice daily. He had a CTA of the chest completed which was negative for PE. His troponin was minimally elevated in the 20s at that time. His small stock facer in [place] was consulted by Dr. Barnett at the time of that ED visit. Today he presents with similar symptoms. This feeling of chest tightness and not being able to catch his breath when he stands up to ambulate. He will has a lot of anxiety surrounding getting better from his recent left hip replacement. He had a pinning of a left femoral neck fracture in November of this year and just has not had complete resolution of his hip since comes since that time. Is very telling to me when he says to me I am "scared to " every time I stand up to walk. Robaxin has reportedly been helpful for some of his chest tightness and discomfort. With regards to his blood sugars, he has been having some difficulty staying on his diabetic regimen of late. His a.m. blood sugars have been 150-160 recently. He is normally on Mounjaro but has been off this for several weeks due to all of these health events. He normally takes it on Mondays and his plan was to take it tomorrow. He has continued to be on oxycodone after his hip surgery and usually takes10 mg at bedtime. He has a remote smoking history quit 43 years ago he was a 2 pack/day smoker for 9 years. He denies any lung disease. He states when he gets a cold he normally clears it within about a week he does not have chronic cough. Reportedly had an echocardiogram at his most recent admission to [facility] for cardiac cath and his echocardiogram is normal. He denies diagnosis of congestive heart failure. He lives with his Vikram who is in good health. She would be his surrogate decision maker were he unable to make his medical decisions. He does not have a POLST form and he would like to be full code. He would like us to keep him alive if it is possible and then consult his for any further decisions. He has 2 children who live in [place] and check in with him regularly. His PCP is Elvin Davis. He has a follow-up scheduled with his PCP in several days. He is supposed to see his small stock facer, Dr. Garcia at [facility] in [place] on June 29, 2025. Addendum to HPI: dc summary from [facility] 06/05-. Diagnosed with NSTEMI [facility] fib with RVR and elevated troponins. Placed on IV amiodarone and IV CCB. on hospital day 2 underwent coronary angiography with stenting of his RCA and ostial and proximal first posterior decending artery. He is to be on ASA 81mg daily indefinitely and Brilinta 90mg BID for one year. he was started on po amiodarone and this was continued on dc. recommendation was for dc to SNF, but patient decided he wanted to go home. CONSULTS | PROCEDURES Procedures: 2 view CXR: unremarkable. CTA chest: no evidence of PE, aortic dissection of aneurysm small left pleural effusion. Dense coronary artery vascular calcification HOSPITAL COURSE Hospital Course: Admitted with complaints of tight feeling in his chest, inability to catch his breath when he stands up to walk after a left JOHN. has had an eventful time with his health recently after undergoing a JOHN then in the post operative period developing an NSTEMI requiring PCI and stenting. Has lots of anxiety, as he is having trouble discerning if the symptoms he has in his chest are indicative of CAD symptomatology. therefore was admitted for observation overnight. His troponins had been elevated post PCI and therefore I elected to trend troponin every 6 hours and maintain telemetry monitoring overnight. Tele monitor showed no arrhythmias or ST elevation. 06/13/25 06/13/25 06/13/25 14:10 17:02 22:55 Troponin I High Sens 29.1 H* 27.5 H* 25.8 H* 06/14/25 06/14/25 04:10 11:03 Troponin I High Sens 22.8 H* 18.1 ALLERGIES Allergies Allergy/AdvReac Type Severity Reaction Status Date / Time No Known Drug Allergies Allergy Verified 06/15/25 14:42 MEDICATIONS Ambulatory Orders Medication Instructions Recorded Confirmed pantoprazole 40 mg tablet,delayed 40 mg PO QDAC 06/15/25 release ferrous sulfate 325 mg (65 mg 325 mg PO DAILY 06/11/16 06/15/25 iron) tablet cetirizine 10 mg tablet 10 mg PO DAILY 06/17/1605/22 duloxetine 30 mg capsule,delayed 30 mg PO HS 06/05/23 06/15/25 release acetaminophen 500 mg tablet 500 mg PO TID PRN As Neede d Per 03/13/24 06/15/25 Provider Orders coenzyme [id number] 100 mg-5 1 ea PO DAILY 03/13/24 06/15/25 unit capsule (Co Q-10 (with Vit E)) isosorbide mononitrate 120 mg 120 mg PO DAILY 03/13/24 06/15/25 tablet,extended release 24 hr tirzepatide 7.5 mg/0.5 mL 7.5 mg (0.5 mL) subcut QWEEK #6.5 10/09/24 06/15/25 subcutaneous pen injector mL (Tomunmauricio) duloxetine 60 mg capsule,delayed 60 mg PO DAILY 06/15/25 release ranolazine 500 mg tablet,extended 500 mg PO BID 06/15/25 release,12 hr insulin lispro 100 unit/mL 12 - 18 unit subcut TIDWM 0 01/19/25 06/15/25 subcutaneous pen (Humalog KwikPen (U-100) Insulin) magnesium oxide 400 mg PO DAILY 01/19/25 insulin glargine 100 unit/mL (3 27 unit subcut QAM 08/1406/15/25 mL) subcutaneous pen (Lantus Solostar U-100 Insulin) insulin glargine 100 unit/mL (3 36 unit subcut QPM 08/1406/15/25 mL) subcutaneous pen (Lantus Solostar U-100 Insulin) tamsulosin 0.4 mg capsule 0.4 mg PO DAILY 01/28/25 valacyclovir 1 gram tablet 2,000 mg PO DIRECTED PRN cold 01/28/25 06/15/25 sores pen needle, diabetic 32 gauge x #300 ea 02/24/2506/1532" (Sure Comfort Pen Needle) atorvastatin 80 mg tablet 80 mg PO HS #90 tabs 5 06/15/25 aspirin 81 mg tablet,delayed 81 mg PO DAILY 04/26/25 0 06/15/25 release amiodarone 200 mg tablet 400 mg PO BID 06/14/2506/15 metoprolol tartrate 100 mg tablet 100 mg PO BID 06/15/25 nystatin 100,000 unit/gram topical See Rx Instructions topical 06/14/25 06/15/25 ointment .COMPLEX oxycodone 5 mg tablet 5 mg PO Q6H PRN pain 5 06/15/25 ticagrelor 90 mg tablet 90 mg PO BID 06/14/25 nitroglycerin 0.4 mg sublingual 0.4 mg sublingual Q5MI NX3 PRN Pain 06/15/25 06/15/25 tablet 1-4 #25 tabs PHYSICAL EXAM AT DISCHARGE Vital Signs: Vital Signs x48h Temp Pulse Resp BP Pulse Ox 06/14/25 13:00 36.5 C 66 20 124/54 L 99 Physical Exam Other/Comments: General: Alert and oriented Skin: No rash Eyes : PERRL, EOMI. Sclera and conjunctiva clear Neck: supple without adenopathy. Heart : regular rate and rhythm without murmur Lungs : Clear bilaterally to auscultation Extremities mild general left lower extremity edema with surgical dressing in place at the lateral hip Psychiatric : normal mood and affect; cooperative with care; speech and thought content organized LABS 06/14/25 04:10 06/14/25 04:10 FOLLOW UP Follow Up: PCP, VENUS Davis as scheduled Cardiology as scheduled TIME SPENT Time Spent in Discharge (Minutes): 35 Discharge Plan Discharge Patient Disposition: Home, Self Care Condition: Fair Prescriptions: Continued pantoprazole 40 MG tablet,delayed release (DR/EC) 40 mg PO QDAC ferrous sulfate 325 MG tablet 325 mg PO DAILY cetirizine 10 MG tablet 10 mg PO DAILY duloxetine 30 MG capsule,delayed release(DR/EC) 30 mg PO HS Rx Instructions: 60mg am, 30mg pm isosorbide mononitrate 120 MG tablet extended release 24 hr 120 mg PO DAILY acetaminophen 500 MG tablet 500 mg PO TID PRN (Reason: As Needed Per Provider Orders) coenzyme [id number] [Co Q-10 (with Vit E)] 1 EACH capsule 1 ea PO DAILY ranolazine 500 mg tablet extended release 12 hr 500 mg PO BID Patient Comments: TAKE ONE TABLET BY MOUTH TWICE DAILY. Swallow whole. Do not crush, break, or chew. duloxetine 60 mg capsule,delayed release(DR/EC) 60 mg PO DAILY Patient Comments: TAKE ONE CAPSULE BY MOUTH ONE TIME DAILY Rx Instructions: 60MG AM, 30MG PM insulin lispro [Humalog KwikPen Insulin] 100 unit/mL insulin pen 12 - 18 unit SUBCUT TIDWM Rx Instructions: 16 units breakfast, 12 units lunch, 18 units dinner. Sliding scale amiodarone 200 mg tablet 400 mg PO BID Patient Comments: TAKE TWO TABLETS BY MOUTH TWICE DAILY metoprolol tartrate 100 mg tablet 100 mg PO BID Patient Comments: TAKE ONE TABLET BY MOUTH TWICE DAILY nystatin 100,000 unit/gram ointment See Rx Instructions TOPICAL .COMPLEX Patient Comments: Apply to affected areas in groin and between buttocks twice daily for 2 weeks, then as needed for flares. Rx Instructions: Apply to affected areas in groin and between buttocks twice daily for 2 weeks, then as needed for flares. topically; oxycodone 5 mg tablet 5 mg PO Q6H PRN (Reason: pain) ticagrelor 90 mg tablet 90 mg PO BID Patient Comments: TAKE ONE TABLET BY MOUTH TWICE DAILY aspirin 81 mg tablet,delayed release (DR/EC) 81 mg PO DAILY Mounjaro 7.5 mg/0.5 mL pen injector 7.5 mg subcut QWEEK Qty: 6.5 3RF Patient Comments: takes on mondays valacyclovir 1 gram tablet 2,000 mg PO DIRECTED PRN (Reason: cold sores) Rx Instructions: 2 tab BID x 1 day prn HSV outbreak tamsulosin 0.4 mg capsule 0.4 mg PO DAILY (DME) pen needle, diabetic [Sure Comfort Pen Needle] 32 gauge x 5/32" needle See Rx Instructions .Route Qty: 300 3RF Rx Instructions: Use 1 pen needle under skin subcutaneously five times daily to inject insulin magnesium oxide 400 mg magnesium tablet 400 mg PO DAILY insulin glargine [Lantus Solostar U-100 Insulin] 100 unit/mL (3 mL) insulin pen 27 unit subcut QAM insulin glargine [Lantus Solostar U-100 Insulin] 100 unit/mL (3 mL) insulin pen 36 unit subcut QPM atorvastatin 80 mg tablet 80 mg PO HS Qty: 90 1RF Discontinued metoprolol tartrate 50 mg tablet 75 mg PO BID Qty: 270 3RF No Action nitroglycerin 0.4 mg tablet, sublingual 0.4 mg sublingual [id number] PRN (Reason: Pain 1-4) Qty: 25 3RF Rx Instructions: take 1 tablet sublingual every 5 minutes max dose 3 pills Diet: Diabetic Interventions: Belongings Inventory Last Done: 06/13/25 20:53 Discharge Last Done: 06/14/25 13:00 Discharge Checklist - Nursing Last Done: 06/14/25 13:00 Discharge Vital Signs (30 Minutes) Last Done: 06/14/25 13:00 Health Concerns: You came into the hospital because you have been having this odd shortness of breath and tightness in your chest when you get up and start moving. It is hard to determine when your discomfort is related to your heart, or other factors. It is completely understandable that you came in. Combined with this has been some elevated troponins which can be normal after cardiac interventions. The important thing to know is that your troponins are not rising. This morning you had 1 that was normal for the first time in a long time. That is good. We also watched your heart on a monitor all night long it did not see any signs of your heart muscle not getting enough oxygen. Overall you need close follow-up with all of your doctors. It sounds like you have appointments scheduled with primary care, orthopedics and cardiology and that is good. With regards to your diabetes, I have an A1c that was done early this morning and the result is not back. The result will most definitely be back by the time you see your primary care provider tomorrow and he can go over it with you. I would recommend a referral to diabetic medic education here at [facility]. You are on a large amount of insulin and sometimes a continuous glucose monitor can be very helpful in managing diabetes when you are on insulin. The diabetic education department can be really helpful with getting this done. We wish you well in recovery from your hip replacement. I know that you will do well. Action items for your primary care appointment would be: 1. Review A1c result, consider referral to diabetic education 2. Get referral to [facility] cardiac rehab so that you do not have to go to [place] for cardiac rehab Action items for next cardiology follow-up: Discern exactly what symptoms are most concerning. Make sure you are cleared to participate in PT for rehab of your hip. Print Language: Kittitian Patient Instructions: Unstable Angina Follow-up Care: Elvin Hameed, INGRID, DYE JIG OPERATOR, MECHANICAL OPERATOR [Provider Admit Priv/Credential, Family Practice] Kenny Santana, [Physician No Access, Surgery - Ortho] Vitals documented within 30 minutes of discharge?: Yes (Vital signs at 1300)
[2025-06-14 11:49] LABS: ESTIMATED AVERAGE GLUCOSE 114 mg/dL (70-100); HEMOGLOBIN A1c% 5.6 % (4.27-6.07)
[2025-06-14 13:22] VITALS: BP 124/54; TEMP 97.7; O2SAT 99
== END 2025-06-14 13:12 | disposition home or self-care (01) ==
LOC: ED 13:29 → MS3 13:29
PROVIDERS: ADMIT Physician Assistant Medical; ATTEND Physician Assistant Medical